=== PATIENT | female | born 1945 | race Caucasian/White ===

== ENCOUNTER → 2018-03-15 16:23 | Outpatient (CLI) | payer OTHER, SELFPAY ==
--- NOTE | 2018-03-15 16:29 | RAD_ITS ---
STUDY: X-RAY - ABDOMEN/PELVIS REASON FOR EXAM: Female, 73 years old. Abdominal bloating, occasional vomiting, constipation. TECHNIQUE: AP supine and upright views of the abdomen and pelvis. COMPARISON: AP supine and upright views of the abdomen and pelvis June 24, 2013; CT abdomen and pelvis June 21, 2013. FINDINGS: There is stable elevation of the right diaphragm, otherwise normal visualized lung bases. There is no significant bowel distention. A few fluid levels are seen on upright exam, which may reflect a mild ileus. There is no demonstrated free abdominal air. Again seen is a scattering of metal surgical clips in the right upper quadrant through the mid to low abdomen, and just over the medial right hip joint The visualized liver, spleen and kidneys are grossly normal in size and morphology. There are calcified phleboliths in the pelvis. There are stable diffuse degenerative changes of the visualized spine. RAD/Abd Inc Decub and/or Erect IMPRESSION: Findings suggesting a mild ileus without distention. No free gas. Numerous metal surgical clips again noted Electronically Signed: Irving Merrill MD at 17:05 EDT , Service support ,
== END ==
PROVIDERS: Family Provider Family Medicine; PCP Family Medicine; Visit Provider Family Medicine
DX: R14.0 Abdominal distension (gaseous) (principal)
CPT/HCPCS: 74019

== ENCOUNTER 2018-06-21 02:26 | Emergency (ER) | payer OTHER, SELFPAY ==
[2018-06-21 02:27] VITALS: BP 140/85; PULSE 83; RESP 16; TEMP 36.7; O2SAT 96; BMI 27.5
--- NOTE | 2018-06-21 03:05 | CT_ITS ---
STUDY: CT BRAIN WITHOUT CONTRAST REASON FOR EXAM: Female, 73 years old. Patient believes that she passed out. Abrasion on the nose. Leg cramps. History of breast cancer, uterine cancer, diabetes, and hypertension. RADIATION DOSAGE (If Supplied By Facility): CTDIvol = ( 44.99 ) mGy, DLP = ( 796.11 ) mGycm TECHNIQUE: Transaxial CT imaging of the brain was performed without administration of intravenous contrast material. Individualized dose optimization techniques were used for this CT. COMPARISON: None. FINDINGS: Normal soft tissue structures. There is hyperostosis frontalis internus. There is mild cerebral atrophy with widening of the extra-axial spaces and ventricular dilatation. Normal white matter tracts of the cerebral hemispheres. Normal basal ganglia and thalami. Normal brainstem. There is mild cerebellar atrophy. There is no intracranial hemorrhage. There are no findings of an acute ischemic infarction. Normal visualized paranasal sinuses. CT/Brain/Head without Contrast IMPRESSION: Mild chronic involutional changes of the brain. No demonstrated acute intracranial process. Electronically Signed: Jaspreet Reyes MD at 3:32 EDT , Service support ,
--- NOTE | 2018-06-21 03:08 | ED.VISSUMM ---
- ER Visit Summary Date of Service: 06/21/18 Chief Complaint: Syncope History of Present Illness: The patient is a 73 F who presents with a syncopal episode that occurred tonight. Patient states she got up to use the bathroom. Patient states that after she got up from the toilet she felt flushed and had some sweats. Patient states she fell to the ground and passed out. Patient states she remembers waking up on the floor. Patient states she has been having some nausea and vomiting yesterday. Patient denies any nausea or vomiting since the syncopal episode tonight. Patient denies any chest pain or palpitations. Patient denies any shortness of breath. Patient complains of pain over her nose where she hit her nose. Patient denies any headaches. Physical Examination: Vital signs are stable. Patient is afebrile. Patient is in no acute distress. Cranial nerves II through XII are intact. There are no focal motor or sensory deficits noted. Pupils are equal, round, reactive to light bilaterally. Extraocular muscles are intact. There is tenderness, edema, and ecchymosis over the bridge of the nose. There is no epistaxis noted. Neck is supple. Trachea is midline. There is no JVD noted. Heart was regular rate and rhythm. Lungs are clear and equal bilaterally. There is good respiratory effort noted. Abdomen is soft. Bowel sounds are normal. There is no tenderness noted. The remaining physical exam is within normal limits. Test Results: EKG showed normal sinus rhythm with a rate of 84. There are no acute ST or T wave changes. 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 CT scan of the brain was obtained. There is no acute intracranial abnormality noted. There is no nasal bone fracture noted. CBC, basic metabolic profile, and urinalysis were obtained. BUN was slightly elevated at 26 and creatinine was slightly elevated at 1.38. Orthostatic vital signs were within normal limits. Emergency Department Course and Treatment: Patient was given IV fluids here. Patient felt better on reevaluation. Patient states her leg cramping has improved. Patient was instructed to drink plenty of fluids. Patient wants to go home. Patient was instructed to follow-up with her primary care physician as scheduled. Patient understood and was agreeable with the plan. All questions were answered. Disposition: Discharged home Impression: Syncope This note was generated with [employer] dictation software. It may contain incorrect words, spelling, and punctuation that were not noted in review of the chart prior to signing ED Disposition - Plan for ED Patient: Disposition: Home or Assisted Living Chief Complaint: Syncope Diagnosis: Syncope and collapse Instructions: ED Fainting Unkn Cause Referrals: Mike Pettit MD [Primary Care Provider] -
[2018-06-21 03:14] LABS: Absolute Lymphocyte Count 0.51 X10^3/ul (0.83-4.51); Basophil# 0.03 X10^3/uL; Basophil% 0.4 % (0-1); Eosinophil# 0.08 X10^3/uL; Eosinophils% 1.1 % (0-5); Hematocrit 37.6 % (37-47); Hemoglobin 12.7 g/dl (12.0-15.0); Lymphocyte # 0.51 X10^3/ul (4.0); Lymphocyte % 6.8 % (19-41); Mean Corp Hgb Conc 33.8 g/gl (32-36); Mean Corpuscular Hgb 30.2 pg (27.0-32.0); Mean Corpuscular Volume 89.5 fL (81-99); Mean Platelet Vol. 10.3 fl (6.2-12.0); Monocyte# 0.89 X10^3/uL; Monocyte% 11.8 % (0-10); Neutrophil # 6.02 X10^3/uL (2.7-7.7); Neutrophil % 79.8 % (47-70); Platelet Count 231 K/mm3 (150-450); RBC Distribution Width CV 13.8 % (11.6-14.6); RBC Distribution Width SD 44.7 fl (35.1-43.9); White Blood Count 7.5 K/mm3 (4.4-11.0)
[2018-06-21 03:15] LABS: Differential Indicated SCAN CRITERIA MET; POSITIVE COUNT NO; POSITIVE DIFFERENTIAL YES; POSITIVE MORPHOLOGY NO
[2018-06-21] MEDS: 0.9% Normal Saline 1,000 ML 1000 ML IV (03:26)
[2018-06-21 03:30] VITALS: BP 118/68; BP 132/67; BP 142/73; PULSE 78; PULSE 84; PULSE 94
[2018-06-21 03:31] VITALS: BP 132/67; PULSE 84; RESP 20; O2SAT 96
[2018-06-21 03:34] LABS: Anion Gap 12 (5-15); BUN 26 mg/dL (7-18); BUN/Creat Ratio 18.8 RATIO (10-20); Calcium,Total 10.1 mg/dL (8.5-10.1); Chloride 107 mmol/L (98-107); Creatinine, Serum 1.38 mg/dL (0.55-1.02); EST Glomerular Filtration Rate 40 mL/min (>60); Est Glom Filt Rate - Afr Amer 48 mL/min (>60); Estimated Creatinine Clearance 28.22 ml/min; Glucose 154 mg/dL (74-106); Potassium 3.7 mmol/L (3.5-5.1); Sodium Level 143 mmol/L (136-145)
[2018-06-21 03:45] LABS: Mucous, Urine 0 SEEN /hpf (<or=2+); Red Blood Cells-Urine 0 SEEN /hpf (0-5)
[2018-06-21 03:46] LABS: Color, Urine Yellow (Yellow); Glucose, Dipstick Normal (Normal); Ketone-Dipstick 5 mg/dl (Negative); Leukocyte Esterase-Dipstick Negative /ul (Negative); Nitrite-Dipstick Negative (Negative); Occult Blood-Urine 150 /ul (Negative); Protein-Dipstick 30 mg/dl (Negative); Specific Gravity, Urine 1.015 (1.002-1.030); Urine Bilirubin Dipstick Negative (Negative); Urine Clarity Clear (Clear); Urine Urobilinogen Normal (Normal)
[2018-06-21 03:48] LABS: Differential Comment SCANNED
[2018-06-21 03:54] LABS: Squamous Epithelial Cells - UA 0-5 SEEN /hpf (5-10); White Blood Cells 0-5 SEEN /hpf (0-5)
[2018-06-21 03:55] LABS: Bacteria RARE /hpf (None Seen)
[2018-06-21 05:05] VITALS: BP 147/72; PULSE 75; RESP 16; O2SAT 99
== END 2018-06-21 05:06 | disposition home or self-care (01) ==
PROVIDERS: Emergency Provider Emergency Medicine; Family Provider Family Medicine; PCP Family Medicine
DX: R55 Syncope and collapse (principal); S00.31XA Abrasion of nose, initial encounter; X58.XXXA Exposure to other specified factors, initial encounter; Y93.9 Activity, unspecified; Y92.9 Unspecified place or not applicable; Z85.3 Personal history of malignant neoplasm of breast; Z85.42 Personal history of malignant neoplasm of other parts of uterus; Z90.710 Acquired absence of both cervix and uterus; Z90.11 Acquired absence of right breast and nipple; Z79.82 Long term (current) use of aspirin; Z79.899 Other long term (current) drug therapy
CPT/HCPCS: 70450; 80048; 81001; 84484; 85025; 93005; 96360; 96361; 99285; J7030; A4216

== ENCOUNTER → 2018-06-25 12:24 | Outpatient (CLI) | payer OTHER, SELFPAY | PROVIDERS: Family Provider Family Medicine; PCP Family Medicine; Visit Provider Nurse Practitioner Family | DX: M25.571 Pain in right ankle and joints of right foot (principal) | CPT/HCPCS: 73610 ==

== ENCOUNTER → 2018-07-04 15:40 | Outpatient (CLI) | payer OTHER, SELFPAY | PROVIDERS: Family Provider Family Medicine; PCP Family Medicine | DX: Z13.820 Encounter for screening for osteoporosis (principal); Z78.0 Asymptomatic menopausal state; Z79.811 Long term (current) use of aromatase inhibitors | CPT/HCPCS: 77080 ==

== ENCOUNTER → 2019-01-08 15:34 | Outpatient (CLI) | payer MEDICARE, OTHER, SELFPAY ==
[2018-07-22 13:20] VITALS: BMI 26.2
[2019-01-08 18:50] LABS: Anion Gap 10 (5-15); BUN 31 mg/dL (7-18); BUN/Creat Ratio 24.6 RATIO (10-20); Calcium,Total 9.1 mg/dL (8.5-10.1); Chloride 104 mmol/L (98-107); Cholesterol 147 mg/dL (200); Creatinine, Serum 1.26 mg/dL (0.55-1.02); EST Glomerular Filtration Rate 44 mL/min (>60); Est Glom Filt Rate - Afr Amer 54 mL/min (>60); Glucose 104 mg/dL (74-106); High Density Lipoprotein 36 mg/dL; Potassium 4.1 mmol/L (3.5-5.1); Sodium Level 139 mmol/L (136-145); Triglycerides 325 mg/dL; Very Low Density Lipoprotein 65 mg/dL (5-40)
== END ==
PROVIDERS: Family Provider Family Medicine; PCP Family Medicine; Referring Provider Family Medicine; Visit Provider Family Medicine
DX: E11.9 Type 2 diabetes mellitus without complications (principal)
CPT/HCPCS: 36415; 80048; 80061

== ENCOUNTER 2019-07-09 20:35 | Inpatient (IN) | payer MEDICARE, OTHER, SELFPAY ==
[2019-01-20 14:32] VITALS: BMI 24.3
[2019-07-09 20:35] VITALS: BP 133/68; PULSE 116; RESP 18; TEMP 36.7; O2SAT 100; BMI 23.6
--- NOTE | 2019-07-09 21:03 | ED.VISSUMM ---
- ER Visit Summary Date of Service: 07/09/19 Chief Complaint: Epigastric abdominal pain, dark tarry stools History of Present Illness: The patient is a 74 F who presents with abdominal pain and dark stools. These all started today. She feels an aching in her upper abdomen. She states that she had a couple of loose bowel movements that were dark. She ate green beans for dinner and when she vomited that back up had some dark specks with it. She denies any history of this in the past. She is not on any blood thinning medications. Her last colonoscopy was 4 years ago. She took no medications for it at home. Physical Examination: Vital signs reviewed. HEENT exam unremarkable. Heart is regular rate and rhythm without murmurs. Lungs are clear to auscultation. Abdomen is soft with epigastric tenderness to palpation. There is no guarding or rebound tenderness. Extremities reveal no edema. Skin exam normal. Neurologic exam normal. Test Results: Hemoglobin 8.6, down from 12 earlier this year. Potassium 2.7, glucose 167. PTT 71.3. AST 11 Emergency Department Course and Treatment: The patient's guaiac was negative which is surprising because she had dark stool on the rectal exam. However, due to her drop in hemoglobin I will still treat this as a GI bleed. The source is likely upper. She had an episode of vomiting here in the emergency department that was dark. Patient was given Protonix bolus. I also replace her potassium IV. Patient will be admitted to the hospital. I did discuss this with Dr. Rodrigues, call for Dr. Muhammad. He will see the patient in consult Treatment Plan: [] Disposition: Admit Impression: GI bleed, hypokalemia This note was generated with [employer] dictation software. It may contain incorrect words, spelling, and punctuation that were not noted in review of the chart prior to signing ED Disposition - Plan for ED Patient: Referrals: Mike Pettit MD [Primary Care Provider] -
[2019-07-09] MEDS: Mag Hydrox/Al Hydrox/Simeth 30 ML UDC PO (21:09)
[2019-07-09 21:18] LABS: Absolute Lymphocyte Count 0.82 X10^3/uL (0.83-4.51); Absolute Neutrophil Count 5.7 X10^3/uL (2.0-7.7); Basophil# 0.02 X10^3/uL; Basophil% 0.3 % (0-1); Eosinophil# 0.07 X10^3/uL; Hematocrit 24.9 % (37-47); Hemoglobin 8.6 g/dL (12.0-15.0); Lymphocyte # 0.82 X10^3/ul (4.0); Lymphocyte % 11.3 % (19-41); Mean Corp Hgb Conc 34.5 g/dL (32-36); Mean Corpuscular Volume 89.9 fL (81-99); Mean Platelet Vol. 10.1 fl (6.2-12.0); Monocyte# 0.58 X10^3/uL; NRBC Flagged by Analyzer 0 % (0-5); Neutrophil # 5.68 X10^3/uL (2.7-7.7); Neutrophil % 78.6 % (47-70); Platelet Count 240 K/mm3 (150-450); RBC Distribution Width CV 12.5 % (11.6-14.6); RBC Distribution Width SD 40.9 fl (35.1-43.9); Red Blood Count 2.77 M/mm3 (4.2-5.4); White Blood Count 7.2 K/mm3 (4.4-11.0)
[2019-07-09 21:36] LABS: ALB/GLOB Ratio 0.7 RATIO (0.9-2.4); AST(SGOT) 11 U/L (15-37); Alanine Aminotransfer ALT/SGPT 20 U/L (13-56); Albumin, Serum 2.9 g/dL (3.2-5.0); Alkaline Phosphatase 44 U/L (45-117); Anion Gap 9 (5-15); BUN 54 mg/dL (7-18); BUN/Creat Ratio 48.2 RATIO (10-20); Calcium,Total 9.4 mg/dL (8.5-10.1); Chloride 102 mmol/L (98-107); Creatinine, Serum 1.12 mg/dL (0.55-1.02); EST Glomerular Filtration Rate 51 mL/min (>60); Est Glom Filt Rate - Afr Amer 61 mL/min (>60); Estimated Creatinine Clearance 34.26 ml/min; Glucose 167 mg/dL (74-106); Lipase 220 U/L (73-393); Potassium 2.7 mmol/L (3.5-5.1); Protein, Total 6.9 g/dL (6.4-8.2); Sodium Level 138 mmol/L (136-145)
[2019-07-09 21:41] LABS: Prothrombin Time (Protime)PT. 12.8 SECONDS (11.7-14.9)
[2019-07-09 21:43] LABS: Partial Thromboplast Time 71.3 Seconds (24.1-36.2)
[2019-07-09 21:44] VITALS: BP 123/62; PULSE 87; RESP 18; O2SAT 97
[2019-07-09] MEDS: Ondansetron 4 MG/2 ML Vial IV (21:46)
--- NOTE | 2019-07-09 21:51 | ED.RN ---
PT HAD A 300CC OF BROWN OR BLACK EMESIS. NOTIFIED
--- NOTE | 2019-07-09 22:35 | HP.PCM_ITS ---
Problem List (1) GI bleed Status: Acute Qualifiers: GI bleed type/associated pathology: unspecified gastrointestinal hemorrhage type Qualified Code(s): K92.2 - Gastrointestinal hemorrhage, unspecified (2) Acute blood loss anemia Status: Acute (3) Hypokalemia Status: Acute (4) Diabetes mellitus Status: Chronic Qualifiers: Diabetes mellitus type: type 2 Diabetes mellitus ocean transportation intermediary insulin use: without fci use Diabetes mellitus complication status: with other specified complication Qualified Code(s): E11.69 - Type 2 diabetes mellitus with other specified complication (5) Hyperlipidemia Status: Chronic Qualifiers: Hyperlipidemia type: unspecified Qualified Code(s): E78.5 - Hyperlipidemia, unspecified (6) Hypertension Status: Chronic Qualifiers: Hypertension type: essential hypertension Qualified Code(s): I10 - Essential (primary) hypertension (7) Malignant neoplasm of endometrium Status: Chronic (8) History of right breast cancer Status: Chronic History of Present Illness Date of Admission: 07/09/19 Chief Complaint: Black stools, diarrhea, epigastric pain, N/V The patient is a 74 y/o F w/ PMHx: Hx Endometrial CA, Hx Breast CA s/p radical R mastectomy, Chronic Anemia, Diabetes mellitus type II, HTN who presents to the [facility] ED on 07/09/19 with history of 2-day history of epigastric discomfort, cramping sensation, rated 3-6 out of 10 with associated dark black tarry appearing stools as well as diarrhea, at least 2 episodes daily with onset nausea as well as emesis on day of ED presentation also dark black in appearance prompting eventual ED presentation. Patient does note she had recent fall and hurt her left shoulder and had been taking high-dose amounts of Aleve. Work-up in the ED included T 98, heart rate 116, BP 133/68, respiratory rate 18, 100% on room air, CBC with WBC 7.2, hemoglobin 8.6 with last level noted to be 12 on 01/20/2019 with prior to this baseline noted to be 10, platelet 240 without market shift, coags with PT 12.8, INR 1.0, PTT 71.3, CMP with BUN 54, creatinine 1.12, glucose 167, lipase 220, AST 11, ALT 20, alk phos 44, stool guaiac negative, type and screen performed. In the ED patient administered 40 mEq IV potassium, Mylanta, viscous lidocaine, multi-ingredient GI drug, Zofran as well as pantoprazole. ED physician to discuss case with Dr. Rodrigues who will evaluate the patient. Past Medical History Past Medical History (Chronic Problems): Chronic Problems (Last Updated 01/20/19 @ 14:31 by Angelica Wyatt) Diabetes mellitus (Chronic) Hyperlipidemia (Chronic) Hypertension (Chronic) Malignant neoplasm of left female breast (Chronic) Malignant neoplasm of endometrium (Chronic) History of right breast cancer (Chronic) Medical History: Medical History (Last Updated 01/20/19 @ 14:31 by Angelica Wyatt) Ankle fracture, right S82.891A Breast cancer C50.919 Diabetes E11.9 Endometrial cancer C54.1 H/O: hysterectomy Z98.890, Z90.710 Hypokalemia E87.6 Nasal fracture S02.2XXA Hypertension I10 Allergies No Known Allergies Allergy (Verified 07/09/19 20:44) Home Medications: Ambulatory Orders Medication Instructions Recorded Aspirin [Ecotrin] 81 mg PO DAILY 08/07/14 Lisinopril [Zestril] 10 mg PO DAILY 08/07/14 metFORMIN HCl [Glucophage] 500 mg PO DAILY 08/07/14 Cholecalciferol (Vitamin D3) 5,000 unit PO BID 07/22/18 [Vitamin D3] Anastrozole [Arimidex] 1 mg PO DAILY 90 Days #90 tablet 09/18/18 Fish Oil 1 tab PO BID 01/20/19 Simvastatin 10 mg PO DAILY 07/09/19 Surgical History: Surgical History (Last Reviewed 01/20/19 @ 14:29 by Angelica Wyatt) History of mastectomy Z98.890, Z90.10 RIGHT RADICAL MASTECTOMY History of tubal ligation Z98.51 Surgical History: - - Bilateral radical mastectomy, hysterectomy, bilateral tubal ligation, tonsillectomy. Psychiatric History: No pertinent psych hx [employer]ACH[employer] History: endometrial cancer Lives: Spouse/ Significant Other Smoking Status: Never smoker Tobacco Use: Non-smoker Alcohol: None Drugs: None - *Family History Maternal Family History: Family History (Last Reviewed 01/20/19 @ 14:29 by Angelica Wyatt) Mother Alzheimer disease Hyperlipidemia Father Heart disease History Items: - - Mother with history of Alzheimer's disease, hyper lipidemia. Paternal Family History: Family History (Last Reviewed 01/20/19 @ 14:29 by Angelica Wyatt) Mother Alzheimer disease Hyperlipidemia Father Heart disease History Items: Heart Disease Review of Systems Constitutional: Reports: Anorexia, Malaise, Weakness, Fatigue. Denies: Chills, Fever, Weight Change HEENT: Denies: Head Aches, Sinus Congestion, Sinus Drainage Cardiovascular: Denies: Chest Pain, Palpitations Respiratory: Denies: Cough, Shortness of breath at rest, Sputum production Gastrointestinal: Reports: Abdominal Pain, Diarrhea, Nausea, Melena, Vomiting Genitourinary: Denies: Dysuria Musculoskeletal: Reports: Shoulder Pain. Denies: Joint Pain, Joint Tenderness Skin: Denies: Rash, Wounds Neurological: Denies: Numbness, Tingling, Focal weakness Psychiatric: Denies: Anxiety, Depression, Homicidal Ideations, Suicidal Ideations Hematologic/ Lymphatic: Denies: Easy Bruising, Easy Bleeding VTE Information - Inpt Only VTE Present on Admission: No VTE Mechan Device Prophylaxis: SCD's VTE Pharm Prophylaxis ordered?: No Reason prophylaxis not ordered:: Medical Contraindication Patient Problems: Active and Suspected Problems (Last Updated 01/20/19 @ 14:31 by Angelica Wyatt) GI bleed (Acute) Acute blood loss anemia (Acute) Hypokalemia (Acute) Subjective: Seated upright 90 bed, fatigued appearance, no acute distress, no market epigastric discomfort at this time. Objective: Physical Examination: General: awake, alert, oriented x 3 and cooperative, seated upright in the ED bed, fatigued appearance, no acute distress. Skin: normal color, turgor, no icterus, cyanosis. HEENT: AT/NC, EOMI, PERRLA, moderately dry MM, no carotid bruits or JVD noted. Lungs: CTA bilaterally, moderate effort, mild decrease BL bases, no rales, ronchi or wheezing. Heart: Improved, regular rate and rhythm; no gallop, rub audible. Abdomen: soft, mild discomfort with epigastric palpation otherwise tender to palpation, ND, hyperactive BS, no HSM. Extremities: no cyanosis, clubbing, or edema. Neurological: patient awake, alert, oriented x 3; cognitive function intact; pupils equally reactive to light and accomodation; cranial nerves II-XII grossly normal, moving all 4 extremities, no focal deficits, strength moderately global decrease secondary to acute presentation. Psychiatric: affect appears fatigued, no acute evidence of depressive or anxiety feelings. - Physical Exam Vital Signs Temp Pulse Resp BP Pulse Ox 98.0 F 87 18 123/62 H 97 07/09/19 20:35 07/09/19 21:44 07/09/19 21:44 07/09/19 21:44 07/09/19 21:44 Oxygen Delivery Method Room Air Weight: 125 lb Body Mass Index (BMI) 23.6 Finger Stick Blood Glucose 132 Intake and Output for Last 24 Hours 07/07/19 07/08/19 07/09/19 23:59 23:59 23:59 Intake Total 25 / 25 Balance 25 / 25 Microbiology Past 72 Hours 07/09/19 21:20 Stool Occult Blood (CALIN) - Final Stool Laboratory Tests Past 24 Hrs 07/09/19 07/09/19 07/09/19 21:05 21:05 21:05 WBC 7.2 RBC 2.77 L Hgb 8.6 L Hct 24.9 L MCV 89.9 MCH 31.0 MCHC 34.5 RDW Std Deviation 40.9 RDW Coeff of Leigh 12.5 Plt Count 240 MPV 10.1 Immature Gran % (Auto) 0.800 Neut % (Auto) 78.6 H Lymph % (Auto) 11.3 L Boyd % (Auto) 8.0 Eos % (Auto) 1.0 Baso % (Auto) 0.3 Absolute Neuts (auto) 5.7 Absolute Lymphs (auto) 0.82 L Nucleated RBC % 0 PT 12.8 INR 1.0 APTT 71.3 H Sodium 138 Potassium 2.7 L* Chloride 102 Carbon Dioxide 27.0 Anion Gap 9 BUN 54 H Creatinine 1.12 H Estim Creat Clear Calc 34.26 Est GFR (MDRD) Af Amer 61 Est GFR (MDRD) Non-Af 51 L BUN/Creatinine Ratio 48.2 H Glucose 167 H Calcium 9.4 Total Bilirubin 0.30 AST 11 L ALT 20 Alkaline Phosphatase 44 L Total Protein 6.9 Albumin 2.9 L Globulin 4.0 Albumin/Globulin Ratio 0.7 L Lipase 220 Blood Type Antibody Screen 07/09/19 21:05 WBC RBC Hgb Hct MCV MCH MCHC RDW Std Deviation RDW Coeff of Leigh Plt Count MPV Immature Gran % (Auto) Neut % (Auto) Lymph % (Auto) Boyd % (Auto) Eos % (Auto) Baso % (Auto) Absolute Neuts (auto) Absolute Lymphs (auto) Nucleated RBC % PT INR APTT Sodium Potassium Chloride Carbon Dioxide Anion Gap BUN Creatinine Estim Creat Clear Calc Est GFR (MDRD) Af Amer Est GFR (MDRD) Non-Af BUN/Creatinine Ratio Glucose Calcium Total Bilirubin AST ALT Alkaline Phosphatase Total Protein Albumin Globulin Albumin/Globulin Ratio Lipase Blood Type A POSITIVE Antibody Screen NEGATIVE Assessment/Plan All Active Problems (Last Updated 01/20/19 @ 14:31 by Angelica Wyatt) Malignant neoplasm of right female breast (Acute) Right foot pain (Acute) GI bleed (Acute) Acute blood loss anemia (Acute) Hypokalemia (Acute) The patient is a 74 y/o F w/ PMHx: Hx Endometrial CA, Hx Breast CA s/p radical R mastectomy, Chronic Anemia, Diabetes mellitus type II, HTN who presents to the [facility] ED on 07/09/19 with history of 2-day history of epigastric discomfort, cramping sensation, rated 3-6 out of 10 with associated dark black tarry appearing stools as well as diarrhea, at least 2 episodes daily with onset nausea as well as emesis on day of ED presentation also dark black. 1. Acute GI Bleed w/ resultant Acute on Chronic blood Loss Anemia: Work-up in the ED included T 98, heart rate 116, BP 133/68, respiratory rate 18, 100% on room air, CBC with WBC 7.2, hemoglobin 8.6 with last level noted to be 12 on 01/20/2019 with prior to this baseline noted to be 10, platelet 240 without market shift, coags with PT 12.8, INR 1.0, PTT 71.3, CMP with BUN 54, creatinine 1.12, glucose 167, lipase 220, AST 11, ALT 20, alk phos 44, stool guaiac negative, type and screen performed. In the ED patient administered 40 mEq IV potassium, Mylanta, viscous lidocaine, multi-ingredient GI drug, Zofran as well as pantoprazole. Will admit to [facility], obtain serial H+H q 6 hours, maintain on IV PPI. General surgery consulted, Dr. Rodrigues. Given recent high dose NSAID usage, suspicious for gastritis/gastric etiology. 2. Hypokalemia: Admission K+ 2.7, supplementation given, repeat level in AM. Mag requested. 3. Chronic Kidney Disease Stage III: From review of labs likely underlying CKD III, admission BUN/Cr 54/1.12, BUN elevated with acute presentation #1, baseline renal function 1.1-1.2, similar CrCl, repeat BMP in AM. 4. Diabetes mellitus type II: Hold oral home regimen, n.p.o. status, and interim every 6 hours Accu checks w/ ISS. 5. Hypertension: Continue home regimen including lisinopril with notable hold parameters given acute presentation, PRN hydralazine. 6. History of breast cancer, endometrial cancer: Status post radical bilateral mastectomy, continue on home Arimidex. 7. Hyperlipidemia: Continue home statin regimen. 8. DVT prophylaxis: SCDs, defer chemoprophylaxis given acute presentation #1. Code Visit Inpatient E&M: 11900 Init Hosp L3
[2019-07-09] MEDS: Potassium Chloride 10mEq/100mL 10 MEQ/100 ML IV.SOLN. 100 MEQ IV BOLUS (22:43)
[2019-07-09 22:44] VITALS: BP 109/60; PULSE 84; RESP 17; O2SAT 100
[2019-07-09 23:37] VITALS: BMI 23.3
[2019-07-09 23:39] VITALS: BP 120/63; PULSE 73; RESP 16; TEMP 37; O2SAT 98
[2019-07-09 23:59] LABS: Magnesium 1.4 mg/dL (1.6-2.6)
[2019-07-10] VITALS (19 sets, daily range): BP systolic 72–143; BP diastolic 34–67; PULSE 60–82; RESP 16–18; TEMP 36.1–37.2; O2SAT 97–100; BMI 23.3
--- NOTE | 2019-07-10 | IMM_PTH ---
PATIENT: MAE ANGUIANO LOC: [facility]3 U#:[id number] AGE/SX: 74/F ROOM: [facility]321 RE07/09/[address]: Dr. Michelle Payton DO : 1945 BED: 1 DIS: 07/12/2019 SPEC #: [id number] RECD: 07/10/19 12:32 STATUS: NEVAEH PAUL #: [id number] DIPTI: 07/10/19 00:[address]: Michelle Payton DEPT: IMMUNOHISTOCHEMISTRY RECD BY: Fred Culp ENTERED: 07/10/19 12:33 SP TYPE: IMMUNO OTHR DR: MD Dr. Stacia Navarrete MD Dr. Paul Nielsen, MD Tissues: Gastric mucous membrane Procedures: H Pylori (initial) PHYSICIAN & INSTITUTION [place] [address] SPECIMEN INFORMATION: Tissue Source: B. Antrum biopsy Clinical Info: GI bleed Specimen Number: [id number] CPT code: 60209 METHODOLOGY: Deparaffinized sections of prefer/formalin-fixed tissue or PAP/DQ stained slides are incubated with monoclonal/polyclonal antibodies/oligonucleotide probes. Localization is made via biotin free immunoperoxidase method. Appropriate controls are performed and reacted as expected. Results on target cell population are indicated in the following table: RESULTS: ANTIBODY / CLONE RESULT H Pylori (polyclonal) negative These tests were developed and their performance characteristics determined by [facility]. They may not have been cleared or approved by the [place]. Food and Drug Administration. The FDA has determined that such clearance or approval is not necessary. INTERPRETATION: B. Gastric antrum, biopsy: Negative for Helicobacter pylori organisms. AM:josé 07/11/19
[2019-07-10 00:02] LABS: Hematocrit 23.9 % (37-47); Hemoglobin 8.2 g/dL (12.0-15.0)
[2019-07-10] MEDS: Potassium Chloride 10mEq/100mL 10 MEQ/100 ML IV.SOLN. 100 MEQ IV BOLUS ×3 (00:15→02:34)
[2019-07-10] MEDS: 0.9% Normal Saline 1,000 ML 100 ML IV ×2 (00:17→19:03)
[2019-07-10 01:10] LABS: Bedside Glucose 132 mg/dL (70-110)
[2019-07-10 06:02] LABS: Hemoglobin 7.4 g/dL (12.0-15.0)
[2019-07-10 06:15] LABS: Anion Gap 7 (5-15); BUN 43 mg/dL (7-18); Calcium,Total 8.5 mg/dL (8.5-10.1); Chloride 107 mmol/L (98-107); EST Glomerular Filtration Rate 58 mL/min (>60); Est Glom Filt Rate - Afr Amer 70 mL/min (>60); Estimated Creatinine Clearance 38.37 ml/min; Glucose 108 mg/dL (74-106); Potassium 3.8 mmol/L (3.5-5.1); Sodium Level 142 mmol/L (136-145)
[2019-07-10 06:36] LABS: Bedside Glucose 100 mg/dL (70-110)
--- NOTE | 2019-07-10 07:49 | CON.PCM_ITS ---
Problem List (1) Upper GI bleed Status: Acute Reason for Consult Date of Consultation: 07/10/19 History of Present Illness: The patient is a 74 year old F who presents with dark vomiting and dark stools. Patient reports that the dark stool started a few days ago. She was having epigastric pain which is now resolved. She has not vomited overnight. She says that she injured her back recently and was taking a large amount of Aleve. She is also on aspirin. She is not on a PPI. She is never had any peptic ulcer disease or GI bleed in the past. Past Medical History Past Medical History (Chronic Problems): Chronic Problems (Last Updated 01/20/19 @ 14:31 by Angelica Wyatt) Diabetes mellitus (Chronic) Hyperlipidemia (Chronic) Hypertension (Chronic) Malignant neoplasm of left female breast (Chronic) Malignant neoplasm of endometrium (Chronic) History of right breast cancer (Chronic) Medical History: Medical History (Last Updated 01/20/19 @ 14:31 by Angelica Wyatt) Ankle fracture, right S82.891A Breast cancer C50.919 Diabetes E11.9 Endometrial cancer C54.1 H/O: hysterectomy Z98.890, Z90.710 Hypokalemia E87.6 Nasal fracture S02.2XXA Hypertension I10 Allergies No Known Allergies Allergy (Verified 07/09/19 20:44) Home Medications: Ambulatory Orders Medication Instructions Recorded Aspirin [Ecotrin] 81 mg PO DAILY 08/07/14 Lisinopril [Zestril] 10 mg PO DAILY 08/07/14 metFORMIN HCl [Glucophage] 500 mg PO 0800 08/07/14 Anastrozole [Arimidex] 1 mg PO DAILY 90 Days #90 tablet 09/18/18 Fish Oil 1 tab PO BID 01/20/19 Simvastatin 10 mg PO QHS 07/09/19 Surgical History: Surgical History (Last Reviewed 01/20/19 @ 14:29 by Angelica Wyatt) History of mastectomy Z98.890, Z90.10 RIGHT RADICAL MASTECTOMY History of tubal ligation Z98.51 Surgical History: - - Bilateral radical mastectomy, hysterectomy, bilateral tubal ligation, tonsillectomy. Psychiatric History: No pertinent psych hx [employer] History: endometrial cancer Lives: Spouse/ Significant Other Smoking Status: Never smoker Tobacco Use: Non-smoker Alcohol: None Drugs: None - *Family History Maternal Family History: Family History (Last Reviewed 01/20/19 @ 14:29 by Angelica Wyatt) Mother Alzheimer disease Hyperlipidemia Father Heart disease History Items: - - Mother with history of Alzheimer's disease, hyper lipidemia. Paternal Family History: Family History (Last Reviewed 01/20/19 @ 14:29 by Angelica Wyatt) Mother Alzheimer disease Hyperlipidemia Father Heart disease History Items: Heart Disease Review of Systems Constitutional: Denies: Anorexia, Fever HEENT: Denies: Difficulty Swallowing Cardiovascular: Reports: Light Headedness. Denies: Chest Pain Respiratory: Denies: Cough, Shortness of Breath Gastrointestinal: Reports: Abdominal Pain, Hematemesis, Nausea, Melena, Vomiting Genitourinary: Denies: Dysuria Skin: Denies: Dryness Neurological: Denies: Balance problems Hematologic/ Lymphatic: Denies: Anemia Patient Problems: Active and Suspected Problems (Last Updated 01/20/19 @ 14:31 by Angelica Wyatt) GI bleed (Acute) Acute blood loss anemia (Acute) Hypokalemia (Acute) Upper GI bleed (Acute) - Physical Exam General: Alert, Oriented x3 Neck: No JVD Lungs: Normal air movement Cardiovascular: Regular rate, Regular Rhythm Abdomen: Soft, Non Tender, Non-Distended Vital Signs Temp Pulse Resp BP Pulse Ox 98.4 F 60 16 98/51 L 98 07/10/19 05:32 07/10/19 05:32 07/10/19 05:32 07/10/19 05:32 07/10/19 05:32 Oxygen Delivery Method Room Air Weight: 123 lb 3.814 oz Body Mass Index (BMI) 23.3 Finger Stick Blood Glucose 132 Intake and Output for Last 24 Hours 07/08/19 07/09/19 07/10/19 23:59 23:59 23:59 Intake Total 125 / 125 300 / 300 Balance 125 / 125 300 / 300 Microbiology Past 72 Hours 07/09/19 21:20 Stool Occult Blood (CALIN) - Final Stool Laboratory Tests Past 24 Hrs 07/09/19 07/09/19 07/09/19 21:05 21:05 21:05 WBC 7.2 RBC 2.77 L Hgb 8.6 L Hct 24.9 L MCV 89.9 MCH 31.0 MCHC 34.5 RDW Std Deviation 40.9 RDW Coeff of Leigh 12.5 Plt Count 240 MPV 10.1 Immature Gran % (Auto) 0.800 Neut % (Auto) 78.6 H Lymph % (Auto) 11.3 L [place] % (Auto) 8.0 Eos % (Auto) 1.0 Baso % (Auto) 0.3 Absolute Neuts (auto) 5.7 Absolute Lymphs (auto) 0.82 L Nucleated RBC % 0 PT 12.8 INR 1.0 APTT 71.3 H Sodium 138 Potassium 2.7 L* Chloride 102 Carbon Dioxide 27.0 Anion Gap 9 BUN 54 H Creatinine 1.12 H Estim Creat Clear Calc 34.26 Est GFR (MDRD) Af Amer 61 Est GFR (MDRD) Non-Af 51 L BUN/Creatinine Ratio 48.2 H Glucose 167 H Calcium 9.4 Magnesium Total Bilirubin 0.30 AST 11 L ALT 20 Alkaline Phosphatase 44 L Total Protein 6.9 Albumin 2.9 L Globulin 4.0 Albumin/Globulin Ratio 0.7 L Lipase 220 Blood Type Antibody Screen 07/09/19 07/09/19 07/09/19 21:05 21:05 23:57 WBC RBC Hgb 8.2 L Hct 23.9 L MCV MCH MCHC RDW Std Deviation RDW Coeff of Leigh Plt Count MPV Immature Gran % (Auto) Neut % (Auto) Lymph % (Auto) [place] % (Auto) Eos % (Auto) Baso % (Auto) Absolute Neuts (auto) Absolute Lymphs (auto) Nucleated RBC % PT INR APTT Sodium Potassium Chloride Carbon Dioxide Anion Gap BUN Creatinine Estim Creat Clear Calc Est GFR (MDRD) Af Amer Est GFR (MDRD) Non-Af BUN/Creatinine Ratio Glucose Calcium Magnesium 1.4 L Total Bilirubin AST ALT Alkaline Phosphatase Total Protein Albumin Globulin Albumin/Globulin Ratio Lipase Blood Type A POSITIVE Antibody Screen NEGATIVE 07/10/19 07/10/19 05:43 05:43 WBC RBC Hgb 7.4 L Hct 23.0 L MCV MCH MCHC RDW Std Deviation RDW Coeff of Leigh Plt Count MPV Immature Gran % (Auto) Neut % (Auto) Lymph % (Auto) [place] % (Auto) Eos % (Auto) Baso % (Auto) Absolute Neuts (auto) Absolute Lymphs (auto) Nucleated RBC % PT INR APTT Sodium 142 Potassium 3.8 Chloride 107 Carbon Dioxide 28.0 Anion Gap 7 BUN 43 H Creatinine 1.00 Estim Creat Clear Calc 38.37 Est GFR (MDRD) Af Amer 70 Est GFR (MDRD) Non-Af 58 L BUN/Creatinine Ratio 43.0 H Glucose 108 H Calcium 8.5 Magnesium Total Bilirubin AST ALT Alkaline Phosphatase Total Protein Albumin Globulin Albumin/Globulin Ratio Lipase Blood Type Antibody Screen POC Glucose 07/10/19 07/10/19 06:28 00:42 POC Glucose 100 132 H Assessment/Plan All Active Problems (Last Updated 01/20/19 @ 14:31 by Angelica Wyatt) Malignant neoplasm of right female breast (Acute) Right foot pain (Acute) GI bleed (Acute) Acute blood loss anemia (Acute) Hypokalemia (Acute) Upper GI bleed (Acute) 74-year-old female with upper GI bleed 1. Patient recently took large doses of Aleve due to back pain. She was having epigastric pain which is now resolved. She describes dark stools for the last few days and dark vomiting yesterday. Her hemoglobin was low at 8.2 yesterday it is now 7.4. I recommend EGD to determine cause. She has been started on a PPI. 2. I explained endoscopy in detail to the patient. I explained the risks including but not limited to stroke or heart attack with anesthesia, perforation of the GI tract, bleeding, infection. I explained that any of these could necessitate further emergency surgery. The patient understands and all questions were answered sufficiently. The patient wishes to proceed with procedure. Issac Rodrigues MD Pager: [facility] [address] [place] [address], [address] [place] [address] Office:
--- NOTE | 2019-07-10 07:54 | EKG12_ITS ---
Test Reason : PRE-PROCEDURE Blood Pressure : / mmHG Vent. Rate : 072 BPM Atrial Rate : 072 BPM P-R Int : 174 ms QRS Dur : 100 ms QT Int : 428 ms P-R-T Axes : 000 -32 067 degrees QTc Int : 468 ms Normal sinus rhythm Left axis deviation Low voltage QRS Poor R- wave Progression Abnormal ECG Confirmed by DOMINGUEZ MARIN, RELL ([id number]), editorial manager SUSIE HERNÁNDEZ ([id number]) on 07/15/2019 12:06:16 PM Referred By: Stacia Judge Confirmed By:RELL MIX MD
--- NOTE | 2019-07-10 08:00 | EGD_PTH ---
PATIENT: MAE ANGUIANO LOC: MS3 U#:[id number] AGE/SX: 74/F ROOM: MS321 RE07/09/[address]: Dr. Michelle Payton DO : 1945 BED: 1 DIS: 07/12/2019 SPEC #: [id number] RECD: 07/10/19 08:51 STATUS: NEVAEH PAUL #: [id number] DIPTI: 07/10/19 08:[address]: Issac Rodrigues DEPT: SURGICAL PATHOLOGY RECD BY: Woodrow Altamirano ENTERED: 07/10/19 11:38 SP TYPE: EGD [facility] DR: MD Dr. Michelle Sinha DO Dr. Paul Nielsen, MD Tissues: A - Duodenum, NOS B - Gastric mucous membrane Procedures: Surgery Specimen Level IV HEADER OPERATION: EGD ([facility] [place] PRE-OP DIAGNOSIS: GI bleed TISSUE SUBMITTED: A. Duodenal ulcer biopsies, B. Antrum biopsy MICROSCOPIC DIAGNOSIS A. Duodenal ulcer, biopsy: Gastric metaplasia. Separate fragment of fibrinopurulent material consistent with ulcer. B. Gastric antrum, biopsy: Mild chronic gastritis. Focal acute gastritis. AM:mj 07/11/19 COMMENT A. Clinical correlation is suggested. B. The results of immunohistochemistry for Helicobacter pylori will be reported separately ([id number]). MICROSCOPIC DESCRIPTION Slides are reviewed. GROSS DESCRIPTION A. Received is one container labeled with the patient name and designated duodenum ulcer biopsy. The specimen consists of multiple irregular fragments of light sadler soft tissue that in aggregate measure 1.5 x 0.5 x 0.1 cm. The specimen is totally submitted in one cassette. B. Received is one container labeled with the patient name and designated antrum biopsy. The specimen consists of two irregular fragments of light sadler soft tissue that in aggregate measure 0.6 x 0.5 x 0.1 cm. The specimen is totally submitted in one cassette. / AM:jm 07/10/19 TC: 2 CPT: 66958 x2
--- NOTE | 2019-07-10 08:34 | OP.ENDO_ITS ---
07/10/2019 Mike Pettit MD [address] [place] [address] Re : Upper GI endoscopy procedure for Shelley Rivera Dear Dr. Pettit This procedure was performed on June. My impressions and recommendations are as follows: Impressions : - Mild Schatzki ring. - Small hiatal hernia. - Non-bleeding gastric ulcers with no stigmata of bleeding. Biopsied. - One non-bleeding duodenal ulcer with pigmented material. Biopsied. Recommendations : - Return patient to [facility] for [facility] care. - Clear liquid diet. - No aspirin, ibuprofen, naproxen, or other non-steroidal anti-inflammatory drugs. My findings are described in the full procedure note, which is enclosed. If I can be of further assistance, please feel free to contact me at Doctor phone number(s): , Work: . Sincerely, Issac Rodrigues MD 07/10/2019 8:33:56 AM This report has been signed electronically.
--- NOTE | 2019-07-10 08:34 | PN_ITS ---
Progress Note I performed an EGD on the patient. She had a Schatzki's ring and a hiatal hernia in the esophagus. In the antrum she had several small shallow ulcers in the prepyloric area. Biopsy was performed for H. pylori. The first portion of the duodenum appeared normal. In the second portion of the duodenum there was a very wide-based ulcer which occupied half of the lumen. There was pigmented material in the ulcer but no visible vessel or adherent clot. There was also a stricture in this area and I was unable to pass the duodenal ulcer with the scope. Biopsies were taken of the rim of the ulcer to rule out malignancy. Advised avoidance of aspirin and NSAIDs. I will add Carafate to her PPI regimen. She may have a clear liquid diet today. Continue clears today in case she rebleeds and needs a repeat scope. If her hemoglobin stabilizes tomorrow she may start a regular diet. Issac Rodrigues MD Pager: [facility] [address] [place] [address], [address] [place] [address] Office:
[2019-07-10 08:55] LABS: Hemoglobin A1c 5.6 % (4.2-6.3)
[2019-07-10] MEDS: Magnesium Sulfate 4gm/100mL 4 GM/100 ML IV.SOLN. IV (10:06)
[2019-07-10] MEDS: Anastrozole 1 MG Tablet PO (10:58)
[2019-07-10] MEDS: Glucerna Shake 120 ML LIQUID PO (10:58)
[2019-07-10] MEDS: Lisinopril 10 MG Tablet PO (10:58)
--- NOTE | 2019-07-10 11:25 | PN_ITS ---
Patient Problems: Active and Suspected Problems (Last Updated 01/20/19 @ 14:31 by Angelica Wyatt) GI bleed (Acute) Acute blood loss anemia (Acute) Hypokalemia (Acute) Upper GI bleed (Acute) Subjective: Patient seen and examined. Underwent upper endoscopy this morning. Denies further nausea, vomiting, abdominal pain or diarrhea. Denies current complaints. - Physical Exam General: Alert, Oriented x3, Cooperative HEENT: Atraumatic, PERRLA, EOMI, Normocephalic Neck: Supple, No JVD, Negative Carotid Bruits Lungs: Clear to auscultation, Normal air movement Cardiovascular: Regular rate, Regular Rhythm, Normal S1, Normal S2, No murmurs Abdomen: Bowel Sounds Present, Soft, Non Tender, Non-Distended Extremities: No clubbing, No cyanosis, No edema, Capillary Refill Less than 3 Seconds Skin: No rashes, No breakdown Musculoskeletal: No Tenderness to Palpation of Joints or Extremities Neurological: Cranial nerves II-XII grossly intact, Neuro grossly intact Psych/Mental Status: Normal Affect, Appropriate Vital Signs Temp Pulse Resp BP Pulse Ox 97.7 F L 64 18 101/58 L 97 07/10/19 09:20 07/10/19 09:20 07/10/19 09:20 07/10/19 09:20 07/10/19 09:20 Oxygen Delivery Method Room Air Weight: 123 lb 3.814 oz Body Mass Index (BMI) 23.3 Finger Stick Blood Glucose 132 Intake and Output for Last 24 Hours 07/08/19 07/09/19 07/10/19 23:59 23:59 23:59 Intake Total 125 / 125 1091.67 / 1091.67 Balance 125 / 125 1091.67 / 1091.67 Microbiology Past 72 Hours 07/09/19 21:20 Stool Occult Blood (CALIN) - Final Stool Laboratory Tests Past 24 Hrs 07/09/19 07/09/19 07/09/19 21:05 21:05 21:05 WBC 7.2 RBC 2.77 L Hgb 8.6 L Hct 24.9 L MCV 89.9 MCH 31.0 MCHC 34.5 RDW Std Deviation 40.9 RDW Coeff of Leigh 12.5 Plt Count 240 MPV 10.1 Immature Gran % (Auto) 0.800 Neut % (Auto) 78.6 H Lymph % (Auto) 11.3 L [place] % (Auto) 8.0 Eos % (Auto) 1.0 Baso % (Auto) 0.3 Absolute Neuts (auto) 5.7 Absolute Lymphs (auto) 0.82 L Nucleated RBC % 0 PT 12.8 INR 1.0 APTT 71.3 H Sodium 138 Potassium 2.7 L* Chloride 102 Carbon Dioxide 27.0 Anion Gap 9 BUN 54 H Creatinine 1.12 H Estim Creat Clear Calc 34.26 Est GFR (MDRD) Af Amer 61 Est GFR (MDRD) Non-Af 51 L BUN/Creatinine Ratio 48.2 H Glucose 167 H Hemoglobin A1c Calcium 9.4 Magnesium Total Bilirubin 0.30 AST 11 L ALT 20 Alkaline Phosphatase 44 L Total Protein 6.9 Albumin 2.9 L Globulin 4.0 Albumin/Globulin Ratio 0.7 L Lipase 220 Blood Type Antibody Screen Crossmatch 07/09/19 07/09/19 07/09/19 21:05 21:05 21:05 WBC RBC Hgb Hct MCV MCH MCHC RDW Std Deviation RDW Coeff of Leigh Plt Count MPV Immature Gran % (Auto) Neut % (Auto) Lymph % (Auto) [place] % (Auto) Eos % (Auto) Baso % (Auto) Absolute Neuts (auto) Absolute Lymphs (auto) Nucleated RBC % PT INR APTT Sodium Potassium Chloride Carbon Dioxide Anion Gap BUN Creatinine Estim Creat Clear Calc Est GFR (MDRD) Af Amer Est GFR (MDRD) Non-Af BUN/Creatinine Ratio Glucose Hemoglobin A1c Calcium Magnesium 1.4 L Total Bilirubin AST ALT Alkaline Phosphatase Total Protein Albumin Globulin Albumin/Globulin Ratio Lipase Blood Type A POSITIVE Antibody Screen NEGATIVE Crossmatch See Detail 07/09/19 07/10/19 07/10/19 23:57 05:30 05:43 WBC RBC Hgb 8.2 L Hct 23.9 L MCV MCH MCHC RDW Std Deviation RDW Coeff of Leigh Plt Count MPV Immature Gran % (Auto) Neut % (Auto) Lymph % (Auto) [place] % (Auto) Eos % (Auto) Baso % (Auto) Absolute Neuts (auto) Absolute Lymphs (auto) Nucleated RBC % PT INR APTT Sodium 142 Potassium 3.8 Chloride 107 Carbon Dioxide 28.0 Anion Gap 7 BUN 43 H Creatinine 1.00 Estim Creat Clear Calc 38.37 Est GFR (MDRD) Af Amer 70 Est GFR (MDRD) Non-Af 58 L BUN/Creatinine Ratio 43.0 H Glucose 108 H Hemoglobin A1c 5.6 Calcium 8.5 Magnesium Total Bilirubin AST ALT Alkaline Phosphatase Total Protein Albumin Globulin Albumin/Globulin Ratio Lipase Blood Type Antibody Screen Crossmatch 07/10/19 07/10/19 05:43 05:43 WBC RBC Hgb 7.4 L Pending Hct 23.0 L Pending MCV MCH MCHC RDW Std Deviation RDW Coeff of Leigh Plt Count MPV Immature Gran % (Auto) Neut % (Auto) Lymph % (Auto) [place] % (Auto) Eos % (Auto) Baso % (Auto) Absolute Neuts (auto) Absolute Lymphs (auto) Nucleated RBC % PT INR APTT Sodium Potassium Chloride Carbon Dioxide Anion Gap BUN Creatinine Estim Creat Clear Calc Est GFR (MDRD) Af Amer Est GFR (MDRD) Non-Af BUN/Creatinine Ratio Glucose Hemoglobin A1c Calcium Magnesium Total Bilirubin AST ALT Alkaline Phosphatase Total Protein Albumin Globulin Albumin/Globulin Ratio Lipase Blood Type Antibody Screen Crossmatch POC Glucose 07/10/19 07/10/19 06:28 00:42 POC Glucose 100 132 H Medical Necessity - Tobacco Use Smoking Status: Never smoker Tobacco Use: Non-smoker Assessment/Plan All Active Problems (Last Updated 01/20/19 @ 14:31 by Angelica Wyatt) Malignant neoplasm of right female breast (Acute) Right foot pain (Acute) GI bleed (Acute) Acute blood loss anemia (Acute) Hypokalemia (Acute) Upper GI bleed (Acute) 1. Acute GI bleed with associated acute blood loss anemia on chronic normocytic anemia- Dr. Rodrigues, general surgery on consult. Patient underwent EGD this morning which showed mild schatzki ring, small hiatal hernia and nonbleeding gastric ulcers with no stigmata of bleeding. One nonbleeding duodenal ulcer. Biopsies taken. No aspirin or NSAIDs. Continue IV PPI, Carafate regimen. Clear liquids today. 2 units PRBC ordered for hemoglobin 7.4. Trend CBC. If hemoglobin remains stable in a.m., anticipate transition to regular diet and possible discharge. 2. Hypokalemia/hypomagnesia, secondary to GI losses-replace per protocol. Resolved. 3. Chronic kidney disease stage III-at baseline, trend BMP. 4. Type 2 diabetes mellitus-hold oral regimen. Accu-Cheks ACHS with sliding scale insulin. 5. Hypertension-continue home lisinopril regimen. Hold for systolic blood pressure less than 90. 6. History of breast cancer, endometrial cancer-status post radical bilateral mastectomy, continue home Arimidex regimen. 7. Hyperlipidemia-continue statin regimen. DVT prophylaxis-SCDs This patient was seen by DORETHA Sigala under the supervision of Dr. Payton.
[2019-07-10 12:20] LABS: Hematocrit 22.4 % (37-47); Hemoglobin 7.3 g/dL (12.0-15.0)
--- NOTE | 2019-07-10 12:45 | CASEMGMT ---
RN MILADY Face to Face with patient for initial transition planning/care coordination assessment. RN CM introduced self and role at [facility]. Patient lying in bed, alert and oriented, at bedside. Patient willing to participate in assessment and is able to answer all questions appropriately. Care providers, pharmacy, and demographics verified. Patient wishes to discharge home, denies need for home health at this time. Patient states she has no further needs or concerns at this time. CM to follow for discharge planning needs that may arise. PCP: [facility] Specialists: Venkat, oncologist Preferred [facility]acy: [facility] Insurance: [employer] Prescription Benefit: yes Living Will/HPOA: yes, Krzysztof Rivera LNOK: Living Arrangements: Patient lives with in single story home. Patient independent at home. Transportation: self/ DME/HHC: Patient states she has walker and knee walker at home. Previous HHC through [facility] Disposition Plan: Patient to discharge home with famliy support and follow-up plans in place. Gabrielle TEJADA, RN, CM
[2019-07-10 12:51] LABS: Bedside Glucose 116 mg/dL (70-110)
[2019-07-10] MEDS: Sucralfate 1 GM Tablet PO ×3 (12:52→21:28)
[2019-07-10] MEDS: Ensure Clear 120 ML Liquid PO ×3 (14:15→21:26)
--- NOTE | 2019-07-10 15:33 | CHAPLAIN ---
Type of Pastoral Visit _x__ Initial Visit ___ Follow-up Visit ___ On-call Visit ___ General Patient Visit ___ Spiritual Assessment ___ Family Conference ___ Bereavement ___ Rapid Response ___ Code Blue ___ Other (describe below) Pastoral Care Referral From _x__ Patient ___ Family ___ Nurse ___ Physician ___ Toy Designer ___ Cafeteria Manager ___ Other (describe below) Sacrament/Intervention _x__ Active listening ___ Anointing ___ Mandaeism ___ Bereavement ___ Communion ___ Patrica exploration ___ ___ Life review ___ Prayer ___ Reconciliation ___ Sacrament of Sick _x__ Supportive presence ___ Wedding ___ Other (describe below) Pastoral Comments
[2019-07-10 17:56] LABS: Bedside Glucose 120 mg/dL (70-110)
[2019-07-10] MEDS: Atorvastatin Calcium 10 MG Tablet 5 MG PO (21:28)
[2019-07-11 00:01] LABS: Bedside Glucose 92 mg/dL (70-110)
[2019-07-11 03:28] VITALS: BP 94/53; PULSE 70; RESP 16; TEMP 36.8; O2SAT 100
[2019-07-11 05:38] LABS: Hematocrit 26.5 % (37-47); Mean Corpuscular Hgb 30.5 pg (27.0-32.0); Mean Corpuscular Volume 89.8 fL (81-99); Mean Platelet Vol. 10.1 fl (6.2-12.0); Platelet Count 184 K/mm3 (150-450); RBC Distribution Width SD 45.7 fl (35.1-43.9); Red Blood Count 2.95 M/mm3 (4.2-5.4); White Blood Count 4.6 K/mm3 (4.4-11.0)
[2019-07-11] MEDS: 0.9% Normal Saline 1,000 ML 100 ML IV (05:57)
[2019-07-11] MEDS: Sucralfate 1 GM Tablet PO ×4 (06:01→21:17)
[2019-07-11 06:13] LABS: Anion Gap 5 (5-15); BUN 22 mg/dL (7-18); BUN/Creat Ratio 26.1 RATIO (10-20); Calcium,Total 7.9 mg/dL (8.5-10.1); Chloride 113 mmol/L (98-107); Creatinine, Serum 0.84 mg/dL (0.55-1.02); EST Glomerular Filtration Rate 70 mL/min (>60); Est Glom Filt Rate - Afr Amer 85 mL/min (>60); Estimated Creatinine Clearance 45.68 ml/min; Glucose 95 mg/dL (74-106); Sodium Level 144 mmol/L (136-145)
[2019-07-11 06:40] LABS: Bedside Glucose 88 mg/dL (70-110)
[2019-07-11 07:06] VITALS: O2SAT 95
--- NOTE | 2019-07-11 07:34 | PCM.PN.SRG ---
Patient Problems: Active and Suspected Problems (Last Updated 01/20/19 @ 14:31 by Angelica Wyatt) GI bleed (Acute) Acute blood loss anemia (Acute) Hypokalemia (Acute) Upper GI bleed (Acute) Subjective: Patient tolerating clears, denies any abdominal pain, received 2 units of packed red blood cells yesterday hemoglobin was 9 from 7.2 - Physical Exam General: Alert, Oriented x3, Cooperative, No apparent distress HEENT: Atraumatic Cardiovascular: Regular rate Abdomen: Soft, Non Tender, Non-Distended Extremities: No clubbing, No cyanosis, No edema Neurological: Cranial nerves II-XII grossly intact Psych/Mental Status: Normal Affect Vital Signs Temp Pulse Resp BP Pulse Ox 98.3 F 70 16 94/53 L 100 07/11/19 03:28 07/11/19 03:28 07/11/19 03:28 07/11/19 03:28 07/11/19 03:28 Oxygen Delivery Method Room Air Weight: 123 lb 3.814 oz Body Mass Index (BMI) 23.3 Finger Stick Blood Glucose 132 Intake and Output for Last 24 Hours 07/09/19 07/10/19 07/11/19 23:59 23:59 23:59 Intake Total 125 / 125 5320.00 / 5820.00 1900 / 1900 Balance 125 / 125 5320.00 / 5820.00 1900 / 1900 Microbiology Past 72 Hours 07/09/19 21:20 Stool Occult Blood (CALIN) - Final Stool Laboratory Tests Past 24 Hrs 07/09/19 07/10/19 07/10/19 21:05 05:30 12:00 WBC RBC Hgb 7.3 L Hct 22.4 L MCV MCH MCHC RDW Std Deviation RDW Coeff of Leigh Plt Count MPV Sodium Potassium Chloride Carbon Dioxide Anion Gap BUN Creatinine Estim Creat Clear Calc Est GFR (MDRD) Af Amer Est GFR (MDRD) Non-Af BUN/Creatinine Ratio Glucose Hemoglobin A1c 5.6 Calcium Crossmatch See Detail 07/11/19 07/11/19 05:20 05:20 WBC 4.6 RBC 2.95 L Hgb 9.0 L Hct 26.5 L MCV 89.8 MCH 30.5 MCHC 34.0 RDW Std Deviation 45.7 H RDW Coeff of Leigh 14.0 Plt Count 184 MPV 10.1 Sodium 144 Potassium 4.0 Chloride 113 H Carbon Dioxide 26.0 Anion Gap 5 BUN 22 H Creatinine 0.84 Estim Creat Clear Calc 45.68 Est GFR (MDRD) Af Amer 85 Est GFR (MDRD) Non-Af 70 BUN/Creatinine Ratio 26.1 H Glucose 95 Hemoglobin A1c Calcium 7.9 L Crossmatch POC Glucose 07/11/19 07/10/19 07/10/19 05:55 23:57 17:47 POC Glucose 88 92 120 H 07/10/19 12:48 POC Glucose 116 H Medical Necessity - Tobacco Use Smoking Status: Never smoker Tobacco Use: Non-smoker Assessment/Plan All Active Problems (Last Updated 01/20/19 @ 14:31 by Angelica Wyatt) Malignant neoplasm of right female breast (Acute) Right foot pain (Acute) GI bleed (Acute) Acute blood loss anemia (Acute) Hypokalemia (Acute) Upper GI bleed (Acute) 74-year-old female with duodenal and gastric ulcers, status post EGD, biopsies pending Advance to a full liquid diet today. Continue IV Protonix twice daily, Carafate 4 times daily Anemia: Continue to monitor hemoglobin, patient's hemoglobin and 9 from 7.3 after 2 units packed red blood cells Danielle Khoury M.D. Pager: [phone] [facility] [address] [place] [address], [address] [place] [address] Office: [phone]
[2019-07-11 09:13] VITALS: BP 132/87; PULSE 68; RESP 18; TEMP 36.2; O2SAT 100
[2019-07-11] MEDS: Ensure Clear 120 ML Liquid PO ×4 (10:25→21:17)
[2019-07-11] MEDS: Anastrozole 1 MG Tablet PO (10:25)
[2019-07-11] MEDS: Lisinopril 10 MG Tablet PO (10:25)
[2019-07-11 12:00] LABS: Bedside Glucose 137 mg/dL (70-110)
--- NOTE | 2019-07-11 12:42 | PCM.PROGNOTE ---
Patient Problems: Active and Suspected Problems (Last Updated 01/20/19 @ 14:31 by Angelica Wyatt) GI bleed (Acute) Acute blood loss anemia (Acute) Hypokalemia (Acute) Upper GI bleed (Acute) Subjective: Patient seen and examined. Reports she feels well. Denies further bowel movement. Denies nausea, vomiting. - Physical Exam General: Alert, Oriented x3, Cooperative HEENT: Atraumatic, PERRLA, EOMI, Normocephalic Neck: Supple, No JVD, Negative Carotid Bruits Lungs: Clear to auscultation, Normal air movement Cardiovascular: Regular rate, Regular Rhythm, Normal S1, Normal S2, No murmurs Abdomen: Bowel Sounds Present, Soft, Non Tender, Non-Distended Extremities: No clubbing, No cyanosis, No edema, Capillary Refill Less than 3 Seconds Skin: No rashes, No breakdown Musculoskeletal: No Tenderness to Palpation of Joints or Extremities Neurological: Cranial nerves II-XII grossly intact, Neuro grossly intact Psych/Mental Status: Normal Affect, Appropriate Vital Signs Temp Pulse Resp BP Pulse Ox 97.2 F L 68 18 132/87 H 100 07/11/19 09:13 07/11/19 09:13 07/11/19 09:13 07/11/19 09:13 07/11/19 09:13 Oxygen Delivery Method Room Air Weight: 123 lb 3.814 oz Body Mass Index (BMI) 23.3 Finger Stick Blood Glucose 132 Intake and Output for Last 24 Hours 07/09/19 07/10/19 07/11/19 23:59 23:59 23:59 Intake Total 125 / 125 5320.00 / 5820.00 1900 / 1900 Balance 125 / 125 5320.00 / 5820.00 1900 / 1900 Microbiology Past 72 Hours 07/09/19 21:20 Stool Occult Blood (CALIN) - Final Stool Laboratory Tests Past 24 Hrs 07/09/19 07/11/19 07/11/19 21:05 05:20 05:20 WBC 4.6 RBC 2.95 L Hgb 9.0 L Hct 26.5 L MCV 89.8 MCH 30.5 MCHC 34.0 RDW Std Deviation 45.7 H RDW Coeff of Leigh 14.0 Plt Count 184 MPV 10.1 Sodium 144 Potassium 4.0 Chloride 113 H Carbon Dioxide 26.0 Anion Gap 5 BUN 22 H Creatinine 0.84 Estim Creat Clear Calc 45.68 Est GFR (MDRD) Af Amer 85 Est GFR (MDRD) Non-Af 70 BUN/Creatinine Ratio 26.1 H Glucose 95 Calcium 7.9 L Crossmatch See Detail POC Glucose 07/11/19 07/11/19 07/10/19 11:54 05:55 23:57 POC Glucose 137 H 88 92 07/10/19 07/10/19 17:47 12:48 POC Glucose 120 H 116 H Medical Necessity - Tobacco Use Smoking Status: Never smoker Tobacco Use: Non-smoker Assessment/Plan All Active Problems (Last Updated 01/20/19 @ 14:31 by Angelica Wyatt) Malignant neoplasm of right female breast (Acute) Right foot pain (Acute) GI bleed (Acute) Acute blood loss anemia (Acute) Hypokalemia (Acute) Upper GI bleed (Acute) 1. Acute GI bleed with associated acute blood loss anemia on chronic normocytic anemia- Dr. Rodrigues/, general surgery on consult. Patient underwent EGD 07/10/19 which showed mild schatzki ring, small hiatal hernia and nonbleeding gastric ulcers with no stigmata of bleeding. One nonbleeding duodenal ulcer. Biopsies taken. No aspirin or NSAIDs. Continue IV PPI, Carafate regimen. Full liquids today. Status post 2 units PRBC. Hemoglobin stable. Trend CBC. Anticipate discharge tomorrow if hemoglobin continues to remain stable. 2. Hypokalemia/hypomagnesia, secondary to GI losses-replace per protocol. Resolved. 3. Chronic kidney disease stage III-at baseline, trend BMP. 4. Type 2 diabetes mellitus-hold oral regimen. Accu-Cheks ACHS with sliding scale insulin. 5. Hypertension-continue home lisinopril regimen. Hold for systolic blood pressure less than 90. 6. History of breast cancer, endometrial cancer-status post radical bilateral mastectomy, continue home Arimidex regimen. 7. Hyperlipidemia-continue statin regimen. DVT prophylaxis-SCDs This patient was seen by Dottie Gonzalez NP-C under the supervision of Dr. Payton.
[2019-07-11 15:32] LABS: Hematocrit 26.1 % (37-47); Hemoglobin 8.6 g/dL (12.0-15.0)
[2019-07-11 16:12] VITALS: BP 124/62; PULSE 70; RESP 18; TEMP 36.3; O2SAT 100
[2019-07-11 17:40] LABS: Bedside Glucose 103 mg/dL (70-110)
[2019-07-11] MEDS: Atorvastatin Calcium 10 MG Tablet 5 MG PO (21:17)
[2019-07-11 21:21] VITALS: BP 99/75; PULSE 66; RESP 18; TEMP 36.6; O2SAT 99
[2019-07-12] LABS: Bedside Glucose 97 mg/dL (70-110)
[2019-07-12 03:35] VITALS: BP 121/58; PULSE 67; RESP 16; TEMP 37.2; O2SAT 96
[2019-07-12] MEDS: Sucralfate 1 GM Tablet PO (05:53)
[2019-07-12 06:00] LABS: Hematocrit 26.9 % (37-47); Mean Corp Hgb Conc 33.5 g/dL (32-36); Mean Corpuscular Hgb 30.4 pg (27.0-32.0); Mean Corpuscular Volume 90.9 fL (81-99); Mean Platelet Vol. 9.5 fl (6.2-12.0); Platelet Count 199 K/mm3 (150-450); RBC Distribution Width SD 46.4 fl (35.1-43.9); Red Blood Count 2.96 M/mm3 (4.2-5.4); White Blood Count 4.1 K/mm3 (4.4-11.0)
[2019-07-12 06:01] LABS: Bedside Glucose 86 mg/dL (70-110)
[2019-07-12 07:16] VITALS: O2SAT 97
--- NOTE | 2019-07-12 07:41 | PCM.DC ---
- Discharge Diagnoses Current Active Problems: Current Active and Chronic Problems (Last Updated 01/20/19 @ 14:31 by Angelica Wyatt) GI bleed (Acute) Acute blood loss anemia (Acute) Hypokalemia (Acute) Upper GI bleed (Acute) You will use the following diet at home:: Other - full liquid for a few days and then advance to soft diet as tolerated. Your food should be the consistency of: Soft (bite-sized & easy to chew/swallow) Your liquids should be the consistency of: Regular/Thin Discharge Activity: - - activity as tolerated Call your doctor if you observe: Fever of 101 or Higher, Shortness of breath, Dizziness, Fainting spells, Swelling in the ankles, Chest pain, Calf discomfort, - - vomiting blood, black tarry diarrhea, abdominal pain Instructions: Peptic Ulcer Additional Instructions: 1. NO aspirin for the next 14 days. NO NSAID's (Motrin, advil, Naproxen, Nuprin, etc......if you are unsure about an over the counter medication ask the pharmacist.). 2. Stay away from caffeine for the next 2 weeks. Stick to a full liquid diet for a few days and then advance as tolerated to soft. 3. I have given you a lab slip to have a blood count checked next Sunday and the results will be sent to Dr. Pettit. Call the office on for the results. 4. You will take the carafate for 1 month and then discontinue. You will stay on the Protonix until Dr. Rodrigues tells you that you can stop. 5. the biopsies were negative for H. Pylori (a bacteria that causes ulcers). The biopsies of the stomach showed no malignant cells.....only evidence of chronic inflammation. Pending Tests on Discharge: none Allergies/Adverse Reactions: Allergies No Known Allergies Allergy (Verified 07/09/19 20:44) Medications to take at Discharge Aspirin [Ecotrin] 81 mg PO DAILY 08/07/14 Lisinopril [Zestril] 10 mg PO DAILY 08/07/14 metFORMIN HCl [Glucophage] 500 mg PO 0800 08/07/14 Anastrozole [Arimidex] 1 mg PO DAILY 90 Days #90 tablet 09/18/18 Fish Oil 1 tab PO BID 01/20/19 Simvastatin 10 mg PO QHS 07/09/19 Acetaminophen [Tylenol Tablet] 650 mg PO Q6H PRN PRN tablet 07/12/19 Pantoprazole Sodium [Protonix] 40 mg PO BID #60 tab 07/12/19 Sucralfate [Carafate] 1 gm PO 1HR_ACHS #120 tab 07/12/19 The following prescriptions were given: Sucralfate [Carafate] 1 gm PO 1HR_ACHS #120 tab Transmission Status: [id number] Pantoprazole Sodium [Protonix] 40 mg PO BID #60 tab Transmission Status: [id number] Orders to be completed after discharge: HH, Hemoglobin & Hematocrit Time Frame: 07/16/19, Facility: [facility], Location: Laboratory Primary Care Physician: Mike Pettit MD [Primary Care Provider] - Please follow up with your Primary Care Physician in: next week Test Results: Test results from this visit will be discussed in further detail at your follow-up appointment, if applicable. Please Follow Up With: Issac Rodrigues MD When: 1-2 weeks Proposed Discharge Date: 07/12/19
--- NOTE | 2019-07-12 07:58 | DS.PCM_ITS ---
Discharge Date and Diagnosis - Problem List Patient Problems: Active and Suspected Problems (Last Updated 01/20/19 @ 14:31 by Angelica Wyatt) Acute blood loss anemia (Acute) Hypokalemia (Acute) Upper GI bleed (Acute) Date of Admission: 07/09/19 Date of Discharge: 07/12/19 - Primary Discharge Diagnosis Active and Suspected Problems (Last Updated 01/20/19 @ 14:31 by Angelica Wyatt) Upper GI bleed (Acute) Small gastric ulcers and a large duodenal ulcer Acute blood loss anemia (Acute) requiring transfusion Hypokalemia (Acute) - Secondary Discharge Diagnosis Chronic Problems (Last Updated 01/20/19 @ 14:31 by Angelica Wyatt) Diabetes mellitus II (Chronic) Hyperlipidemia (Chronic) Hypertension (Chronic) Malignant neoplasm of left female breast (Chronic) Malignant neoplasm of endometrium (Chronic) History of right breast cancer (Chronic) Hospital Course and Treatment Imaging Results: Laboratory Results - last 24 hr 07/11/19 07/11/19 07/11/19 11:54 15:15 17:33 WBC RBC Hgb 8.6 L Hct 26.1 L MCV MCH MCHC RDW Std Deviation RDW Coeff of Leigh Plt Count MPV POC Glucose 137 H 103 07/11/19 07/12/19 07/12/19 23:54 05:49 05:50 WBC 4.1 L RBC 2.96 L Hgb 9.0 L Hct 26.9 L MCV 90.9 MCH 30.4 MCHC 33.5 RDW Std Deviation 46.4 H RDW Coeff of Leigh 14.0 Plt Count 199 MPV 9.5 POC Glucose 97 86 Microbiology 07/09/19 21:20 Stool Stool Occult Blood (CALIN) - Final Negative at admission Dr. Issac sanders and Dr.Tamera Khoury - [place] [facility] Operations: None Procedures: EGD - A. Duodenal ulcer, biopsy: Gastric metaplasia. Separate fragment of fibrinopurulent material consistent with ulcer. B. Gastric antrum, biopsy: Mild chronic gastritis. Focal acute gastritis. Impressions : - Mild Schatzki ring. - Small hiatal hernia. - Non-bleeding gastric ulcers with no stigmata of bleeding. Biopsied. - One non-bleeding duodenal ulcer with pigmented material. Biopsied. Summary of Care Provided: The patient is a 74 year old F [] Patient Problems: Active and Suspected Problems (Last Updated 01/20/19 @ 14:31 by Angelica Wyatt) Acute blood loss anemia (Acute) Hypokalemia (Acute) Upper GI bleed (Acute) - Physical Exam Vital Signs Temp Pulse Resp BP Pulse Ox 98.9 F 67 16 121/58 H 97 07/12/19 03:35 07/12/19 03:35 07/12/19 03:35 07/12/19 03:35 07/12/19 07:16 Oxygen Delivery Method Room Air Weight: 123 lb 3.814 oz Body Mass Index (BMI) 23.3 Finger Stick Blood Glucose 132 Intake and Output for Last 24 Hours 07/10/19 07/11/19 07/12/19 23:59 23:59 23:59 Intake Total 5320.00 / 5820.00 5350 / 5750 450 / 450 Balance 5320.00 / 5820.00 5350 / 5750 450 / 450 Microbiology Past 72 Hours 07/09/19 21:20 Stool Occult Blood (CALIN) - Final Stool Laboratory Tests Past 24 Hrs 07/11/19 07/12/19 15:15 05:50 WBC 4.1 L RBC 2.96 L Hgb 8.6 L 9.0 L Hct 26.1 L 26.9 L MCV 90.9 MCH 30.4 MCHC 33.5 RDW Std Deviation 46.4 H RDW Coeff of Leigh 14.0 Plt Count 199 MPV 9.5 POC Glucose 07/12/19 07/11/19 07/11/19 05:49 23:54 17:33 POC Glucose 86 97 103 07/11/19 11:54 POC Glucose 137 H Discharge Activity: - - activity as tolerated Call your doctor if you observe: Fever of 101 or Higher, Shortness of breath, Dizziness, Fainting spells, Swelling in the ankles, Chest pain, Calf discomfort, - - vomiting blood, black tarry diarrhea, abdominal pain Home Medications: Medications to take at Discharge Aspirin [Ecotrin] 81 mg PO DAILY 08/07/14 Lisinopril [Zestril] 10 mg PO DAILY 08/07/14 metFORMIN HCl [Glucophage] 500 mg PO 0800 08/07/14 Anastrozole [Arimidex] 1 mg PO DAILY 90 Days #90 tablet 09/18/18 Fish Oil 1 tab PO BID 01/20/19 Simvastatin 10 mg PO QHS 07/09/19 Acetaminophen [Tylenol Tablet] 650 mg PO Q6H PRN PRN tablet 07/12/19 Pantoprazole Sodium [Protonix] 40 mg PO BID #60 tab 07/12/19 Sucralfate [Carafate] 1 gm PO 1HR_ACHS #120 tab 07/12/19 Following Prescrptions Were Given to Patient: Sucralfate [Carafate] 1 gm PO 1HR_ACHS #120 tab Transmission Status: [id number] Pantoprazole Sodium [Protonix] 40 mg PO BID #60 tab Transmission Status: [id number] Other Amb Orders: HH, Hemoglobin & Hematocrit Time Frame: 07/16/19, Facility: [facility], Location: Laboratory Primary Care Physician: Mike Pettit MD [Primary Care Provider] - Please follow up with your Primary Care Physician in: next week Please Follow Up With: Issac Rodrigues MD When: 1-2 weeks Patient Instructions: Peptic Ulcer Medical Necessity - Tobacco Use Smoking Status: Never smoker Tobacco Use: Non-smoker
[2019-07-12 08:26] VITALS: BP 142/72; PULSE 64; RESP 14; TEMP 36.6; O2SAT 97
--- NOTE | 2019-07-12 08:38 | PN.SURG_ITS ---
Patient Problems: Active and Suspected Problems (Last Updated 01/20/19 @ 14:31 by Angelica Wyatt) Acute blood loss anemia (Acute) Hypokalemia (Acute) Upper GI bleed (Acute) Subjective: Patient tolerated full liquids denies any abdominal pain, nausea or vomiting, patient still having some residual black stools, hemoglobin stable at 9 - Physical Exam General: Alert, Oriented x3, Cooperative, No apparent distress HEENT: Atraumatic Lungs: Normal air movement Abdomen: Soft, Non Tender, Non-Distended Vital Signs Temp Pulse Resp BP Pulse Ox 97.8 F 64 14 142/72 H 97 07/12/19 08:26 07/12/19 08:26 07/12/19 08:26 07/12/19 08:26 07/12/19 08:26 Oxygen Delivery Method Room Air Weight: 123 lb 3.814 oz Body Mass Index (BMI) 23.3 Finger Stick Blood Glucose 132 Intake and Output for Last 24 Hours 07/10/19 07/11/19 07/12/19 23:59 23:59 23:59 Intake Total 5320.00 / 5820.00 5350 / 5750 450 / 450 Balance 5320.00 / 5820.00 5350 / 5750 450 / 450 Microbiology Past 72 Hours 07/09/19 21:20 Stool Occult Blood (CALIN) - Final Stool Laboratory Tests Past 24 Hrs 07/11/19 07/12/19 15:15 05:50 WBC 4.1 L RBC 2.96 L Hgb 8.6 L 9.0 L Hct 26.1 L 26.9 L MCV 90.9 MCH 30.4 MCHC 33.5 RDW Std Deviation 46.4 H RDW Coeff of Leigh 14.0 Plt Count 199 MPV 9.5 POC Glucose 07/12/19 07/11/19 07/11/19 05:49 23:54 17:33 POC Glucose 86 97 103 07/11/19 11:54 POC Glucose 137 H Medical Necessity - Tobacco Use Smoking Status: Never smoker Tobacco Use: Non-smoker Assessment/Plan All Active Problems (Last Updated 01/20/19 @ 14:31 by Angelica Wyatt) Malignant neoplasm of right female breast (Acute) Acute blood loss anemia (Acute) Hypokalemia (Acute) Upper GI bleed (Acute) Right foot pain (Resolved) 74-year-old female with duodenal and gastric ulcers, status post EGD, biopsies pending Stay on a full liquid diet for 3 days okay to advance to soft Continue Protonix twice daily, Carafate 4 times daily Anemia: Globin stable at 9 Okay for discharge follow-up with Dr. Rodrigues in 1 to 2 weeks. Danielle Khoury M.D. Pager: [phone] [facility] [address] [place] [address], [facility], [address] [place] [address] Office: [phone]
[2019-07-12] MEDS: Anastrozole 1 MG Tablet PO (08:41)
[2019-07-12] MEDS: Ensure Clear 120 ML Liquid PO (08:41)
[2019-07-12] MEDS: Lisinopril 10 MG Tablet PO (08:42)
--- NOTE | 2019-07-12 12:06 | DS.PCM_ITS ---
Discharge Date and Diagnosis Date of Admission: 07/09/19 Date of Discharge: 07/12/19 - Primary Discharge Diagnosis 1. Acute GI bleed secondary to duodenal and gastric ulcers with associated acute blood loss anemia on chronic normocytic anemia 2. Hypokalemia/hypomagnesia, secondary to GI losses 3. Chronic kidney disease stage III 4. Type 2 diabetes mellitus 5. Hypertension 6. History of breast cancer, endometrial cancer 7. Hyperlipidemia - Secondary Discharge Diagnosis Chronic Problems (Last Updated 01/20/19 @ 14:31 by Angelica Wyatt) Diabetes mellitus (Chronic) Hyperlipidemia (Chronic) Hypertension (Chronic) Malignant neoplasm of left female breast (Chronic) Malignant neoplasm of endometrium (Chronic) History of right breast cancer (Chronic) Hospital Course and Treatment Dr. Mancia- General Surgery Operations: None Procedures: EGD Summary of Care Provided: The patient is a 74 year old F admitted 07/09/2019 due to black stools, diarrhea and epigastric pain. 1. Acute GI bleed with associated acute blood loss anemia on chronic normocytic anemia- Dr. Rodrigues/, general surgery on consult. Patient underwent EGD 07/10/19 which showed mild schatzki ring, small hiatal hernia and nonbleeding gastric ulcers with no stigmata of bleeding. One nonbleeding duodenal ulcer. Biopsies taken, did not show any malignant cells, chronic inflammation, negative for H. pylori. No aspirin or NSAIDs. Continue twice daily PPI, Carafate regimen. Full liquids x3 days then advance to soft diet as tolerated. Patient received 2 units PRBC during admission. Hemoglobin stable. Repeat H&H in 3 to 5 days. Follow-up with Dr. Rodrigues in 1-2 Weeks. Follow- up with primary care physician in 1 week. 2. Hypokalemia/hypomagnesia, secondary to GI losses-replace per protocol. Resolved. 3. Chronic kidney disease stage III-at baseline. 4. Type 2 diabetes mellitus-continue home oral regimen. 5. Hypertension-continue home lisinopril regimen. 6. History of breast cancer, endometrial cancer-status post radical bilateral mastectomy, continue home Arimidex regimen. 7. Hyperlipidemia-continue statin regimen. General: Alert, Oriented x3, Cooperative HEENT: Atraumatic, PERRLA, EOMI, Normocephalic Neck: Supple, No JVD, Negative Carotid Bruits Lungs: Clear to auscultation, Normal air movement Cardiovascular: Regular rate, Regular Rhythm, Normal S1, Normal S2, No murmurs Abdomen: Bowel Sounds Present, Soft, Non Tender, Non-Distended Extremities: No clubbing, No cyanosis, No edema, Capillary Refill Less than 3 Seconds Skin: No rashes, No breakdown Musculoskeletal: No Tenderness to Palpation of Joints or Extremities Neurological: Cranial nerves II-XII grossly intact, Neuro grossly intact Psych/Mental Status: Normal Affect, Appropriate Patient seen and examined prior to discharge. Physical assessment as noted above. Patient is stable for discharge with follow up recommendations as noted above. This patient was seen by DORETHA Sigala under the supervision of Dr. Payton. - Physical Exam Vital Signs Temp Pulse Resp BP Pulse Ox 97.8 F 64 14 142/72 H 97 07/12/19 08:26 07/12/19 08:26 07/12/19 08:26 07/12/19 08:26 07/12/19 08:26 Oxygen Delivery Method Room Air Weight: 123 lb 3.814 oz Body Mass Index (BMI) 23.3 Finger Stick Blood Glucose 132 Intake and Output for Last 24 Hours 07/10/19 07/11/19 07/12/19 23:59 23:59 23:59 Intake Total 5320.00 / 5820.00 5350 / 5750 450 / 450 Balance 5320.00 / 5820.00 5350 / 5750 450 / 450 Microbiology Past 72 Hours 07/09/19 21:20 Stool Occult Blood (CALIN) - Final Stool Laboratory Tests Past 24 Hrs 07/11/19 07/12/19 15:15 05:50 WBC 4.1 L RBC 2.96 L Hgb 8.6 L 9.0 L Hct 26.1 L 26.9 L MCV 90.9 MCH 30.4 MCHC 33.5 RDW Std Deviation 46.4 H RDW Coeff of Leigh 14.0 Plt Count 199 MPV 9.5 POC Glucose 07/12/19 07/11/19 07/11/19 05:49 23:54 17:33 POC Glucose 86 97 103 Discharge Diet: - - Full liquid x2 days then advance to soft diet as tolerated. Discharge Activity: Return to Normal Activity, - - activity as tolerated Call your doctor if you observe: Fever of 101 or Higher, Shortness of breath, Dizziness, Fainting spells, Swelling in the ankles, Chest pain, Calf discomfort, - - vomiting blood, black tarry diarrhea, abdominal pain Home Medications: Medications to take at Discharge Aspirin [Ecotrin] 81 mg PO DAILY 08/07/14 Lisinopril [Zestril] 10 mg PO DAILY 08/07/14 metFORMIN HCl [Glucophage] 500 mg PO 0800 08/07/14 Anastrozole [Arimidex] 1 mg PO DAILY 90 Days #90 tablet 09/18/18 Fish Oil 1 tab PO BID 01/20/19 Simvastatin 10 mg PO QHS 07/09/19 Acetaminophen [Tylenol Tablet] 650 mg PO Q6H PRN PRN tab 07/12/19 Pantoprazole Sodium [Protonix] 40 mg PO BID #60 tab 07/12/19 Sucralfate [Carafate] 1 gm PO 1HR_ACHS #120 tab 07/12/19 Following Prescrptions Were Given to Patient: Sucralfate [Carafate] 1 gm PO 1HR_ACHS #120 tab Transmission Status: [id number] Pantoprazole Sodium [Protonix] 40 mg PO BID #60 tab Transmission Status: [id number] Other Amb Orders: HH, Hemoglobin & Hematocrit Time Frame: 07/16/19, Facility: [facility], Location: Laboratory Primary Care Physician: Mike Pettit MD [Primary Care Provider] - Please follow up with your Primary Care Physician in: next week Please Follow Up With: Issac Rodrigues MD When: 1-2 weeks Patient Instructions: Peptic Ulcer Disposition: Home Minutes spent on discharge:: 35 Patient Condition:: Stable Medical Necessity - Tobacco Use Smoking Status: Never smoker Tobacco Use: Non-smoker Meaningful Use Info Meaningful Use Diagnoses (Choose all that apply): None applicable
--- NOTE | 2019-07-15 10:44 | CASEMGMT ---
HELEN CM Discharge Follow-up Phone Call: BILL: Bertin Strata: 3 Call Date: 07/15/19 Discharge Date: 07/12/19 Time of Call: 1045 Duration: 0 ? Admitting Diagnosis: GI bleed, gastric and duodenal ulcers, ABLA Discharge follow-up call attempted. Voicemail received and message left requesting a return call. Lindsay Pacheco RN
--- NOTE | 2019-07-15 13:41 | CASEMGMT ---
HELEN CM Discharge Follow-up Phone Call: BILL: Bertin Strata: 3 Call Date: 07/15/19 Discharge Date: 07/12/19 Time of Call: 1325 Duration: 14 minutes Pt returned message. States she has been feeling fine since discharge stating she feels almost back to normal. Pt states her stools are dark but no bright red blood. Denies any n/v, fatigue, or lightheadedness. States she continues on a soft food diet including oatmeal, soups, jello, pudding, and is not drinking coffee, tea, or pop. States she has not made her follow-up appointments but she did have her labs drawn this morning as ordered. Phone number to Dr. Rodrigues's office was provided and pt was instructed and encouraged to follow-up with her PCP Dr. Purcell also. Pt states she had just seen him the day of per presentation to the ED and was not sure she needed to see him again. Relayed the instruction to follow up with him this week and with the results of her labs drawn today. Pt states she will call Dr. Rodrigues's office now and will call Dr. Purcell's office later this afternoon after labs may have resulted. Pt states she obtained her medications and has been taking them as prescribed including the carafate 1 hour before meals. Pt denied any additional questions or concerns. Lindsay Pacheco RN
== END 2019-07-12 10:33 | disposition home or self-care (01) | DRG 378 ==
LOC: ED 21:18 → MS3 23:20
PROVIDERS: Anesthesiology; Nurse Practitioner Family; Surgery; Admitting Provider Family Medicine; Emergency Provider Emergency Medicine; Family Provider Family Medicine; PCP Family Medicine; Referring Provider Family Medicine; Visit Provider Internal Medicine
PROC: 0DJ08ZZ Inspection of Upper Intestinal Tract, Via Natural or Artificial Opening Endoscopic (ICD-10-PCS; CPT 43235; principal; 2019-07-10 07:55)
DX: K26.4 Chronic or unspecified duodenal ulcer with hemorrhage (principal); D62 Acute posthemorrhagic anemia; K25.4 Chronic or unspecified gastric ulcer with hemorrhage; E78.5 Hyperlipidemia, unspecified; I12.9 Hypertensive chronic kidney disease with stage 1 through stage 4 chronic kidney disease, or unspecified chronic kidney disease; E87.6 Hypokalemia; K44.9 Diaphragmatic hernia without obstruction or gangrene; K22.2 Esophageal obstruction; E11.22 Type 2 diabetes mellitus with diabetic chronic kidney disease; N18.3 Chronic kidney disease, stage 3 (moderate); E83.42 Hypomagnesemia; Z79.84 Long term (current) use of oral hypoglycemic drugs; Z85.42 Personal history of malignant neoplasm of other parts of uterus; Z90.710 Acquired absence of both cervix and uterus; Z85.3 Personal history of malignant neoplasm of breast; Z79.811 Long term (current) use of aromatase inhibitors; Z90.13 Acquired absence of bilateral breasts and nipples
CPT/HCPCS: 36415; 36591; 80048; 80053; 82274; 82962; 83036; 83690; 83735; 85014; 85018; 85025; 85027; 85610; 85730; 86850; 86900; 86901; 86920; 88305; 88342; 93005; 97802; 99285; J7030; J7040; P9040; A4216; J2405; J3490

== ENCOUNTER → 2019-07-15 | Outpatient (CLI) | payer MEDICARE, OTHER, SELFPAY ==
[2019-07-09 23:37] VITALS: BMI 23.3
[2019-07-15 12:48] LABS: Cholesterol 139 mg/dL (200); High Density Lipoprotein 36 mg/dL; Triglycerides 163 mg/dL; Very Low Density Lipoprotein 33 mg/dL (5-40)
[2019-07-15 15:18] LABS: Hematocrit 31.3 % (37-47); Hemoglobin 10.1 g/dL (12.0-15.0)
== END | disposition home or self-care (01) ==
LOC: MFPLAB 10:57
PROVIDERS: Internal Medicine; Family Provider Family Medicine; PCP Family Medicine; Referring Provider Family Medicine; Visit Provider Family Medicine
DX: E78.5 Hyperlipidemia, unspecified (principal); D62 Acute posthemorrhagic anemia
CPT/HCPCS: 36415; 80061; 85014; 85018

== ENCOUNTER → 2019-08-15 17:27 | Outpatient (CLI) | payer MEDICARE, OTHER, SELFPAY | PROVIDERS: Family Provider Family Medicine; PCP Family Medicine; Referring Provider Family Medicine; Visit Provider Family Medicine | DX: R19.7 Diarrhea, unspecified (principal) | CPT/HCPCS: 87493 ==

== ENCOUNTER → 2021-07-06 10:14 | Outpatient (CLI) | payer MEDICARE, OTHER, SELFPAY ==
[2021-07-06 12:37] LABS: Anion Gap 5 (5-15); BUN 35 mg/dL (7-18); BUN/Creat Ratio 22.6 RATIO (10-20); Calcium,Total 9.2 mg/dL (8.5-10.1); Chloride 109 mmol/L (98-107); Cholesterol 148 mg/dL (200); Creatinine, Serum 1.55 mg/dL (0.55-1.02); EST Glomerular Filtration Rate 35 mL/min (>60); Est Glom Filt Rate - Afr Amer 42 mL/min (>60); Glucose 132 mg/dL (74-106); High Density Lipoprotein 34 mg/dL; Sodium Level 139 mmol/L (136-145); Triglycerides 277 mg/dL; Very Low Density Lipoprotein 55 mg/dL (5-40)
[2021-07-06 14:41] LABS: Microalbumin:Creatinine Ratio 25.2 mg/g CRE (<30 mg/g CRE)
== END ==
PROVIDERS: PCP Family Medicine; Referring Provider Family Medicine; Visit Provider Family Medicine
DX: E11.9 Type 2 diabetes mellitus without complications (principal)
CPT/HCPCS: 36415; 80048; 80061; 82043; 82570

== ENCOUNTER → 2021-08-23 10:49 | Outpatient (CLI) | payer MEDICARE, OTHER, SELFPAY ==
--- NOTE | 2021-08-23 10:58 | BD_ITS ---
STUDY: DUAL ENERGY X-RAY ABSORPTIOMETRY / DXA REASON FOR EXAM: Female, 76 years old. Annual screening TECHNIQUE: Bone Mineral Density (BMD) measurements of lumbar spine and bilateral hips were obtained. COMPARISON: Comparison is made with prior examination 07/04/2018. FINDINGS: Lumbar Spine (L1-L4): g/cm2 (1.066) / T-score (0.2) / Z-score (2.5) Findings are suggestive of normal bone density with a low fracture risk. Left Femur Total: g/cm2 (0.876) / T-score (-0.5) / Z-score (1.2) Left Femoral Neck: g/cm2 (0.770) / T-score (-0.7) / Z-score (1.3) Right Femur Total: g/cm2 (0.928) / T-score (-0.1) / Z-score (1.6) Right Femoral Neck: g/cm2 (0.786) / T-score (-0.6) / Z-score (1.5) The T-Scores on the most recent prior examination were: Lumbar Spine (L1-L4): There has been worsening of bone density since the previous examination. Left Femur Total: which represents a worsening of 10.7%. Right Femur Total: which represents a worsening of 12.1%. BD/Dexa Bone Density Study IMPRESSION: The patient is considered normal as outlined below according to World [employer] Organization (WHO) criteria with a low fracture risk. There has been worsening of bone density since the previous examination. Reference Information: The T-score is the number of standard deviations above or below the standard which is normal for young adults at their peak bone mineral density. The World Health Organization (WHO) interprets the T-scores as follows: Above -1 Normal bone density Between -1 and -2.5 Osteopenia Equal to / or below -2.5 Osteoporosis As a practical clinical guideline, osteopenia may be graded as follows: Mild -1 through -1.5 Moderate -1.6 through -2.0 Severe -2.1 through -2.4 The Z-score is the number of standard deviations above or below age-matched controls. A Z-score of less than -1.5 would be considered abnormal. References: 1. NIH Osteoporosis and Related Bone Diseases www osteo.org 2. International Society for Clinical Densitometry www iscd.org 3. National Osteoporosis Foundation www nof.org Electronically Signed: Cleve Loaiza MD at 8:50 EDT , Service support ,
== END ==
PROVIDERS: PCP Family Medicine; Referring Provider Internal Medicine Medical Oncology; Visit Provider Internal Medicine Medical Oncology
DX: C50.412 Malignant neoplasm of upper-outer quadrant of left female breast (principal); Z78.0 Asymptomatic menopausal state; Z71.0 Person encountering health services to consult on behalf of another person
CPT/HCPCS: 77080

== ENCOUNTER → 2022-05-05 | Outpatient (CLI) | payer MEDICARE, OTHER, SELFPAY | END | disposition home or self-care (01) | PROVIDERS: PCP Family Medicine; Visit Provider Family Medicine | DX: N39.0 Urinary tract infection, site not specified (principal) | CPT/HCPCS: 87086; 87088; 87186 ==

== ENCOUNTER 2022-05-18 18:53 | Inpatient (IN) | payer MEDICARE, OTHER, SELFPAY ==
[2022-05-18 18:54] VITALS: BP 165/79; PULSE 75; RESP 18; TEMP 36.8; O2SAT 100; BMI 22.6
--- NOTE | 2022-05-18 19:26 | EKG12_ITS ---
Test Reason : CP Blood Pressure : / mmHG Vent. Rate : 074 BPM Atrial Rate : 074 BPM P-R Int : 186 ms QRS Dur : 102 ms QT Int : 430 ms P-R-T Axes : 043 -40 032 degrees QTc Int : 477 ms Sinus rhythm with Premature atrial complexes Left axis deviation Septal infarct , age undetermined Abnormal ECG Confirmed by DOMINGUEZ MARIN, RELL ([id number]), newspaper or periodical editor VELIA GILLIAM ([id number]) on 05/20/2022 9:26:07 AM Referred By: LYNNE Confirmed By:RELL MIX MD
--- NOTE | 2022-05-18 19:26 | ED.VIS.CHEST ---
HPI History of Present Illness Chief Complaint: Back Detail of Chief Complaint: Chest pain initially now back pain Informant: patient Onset/Context/Timing Onset: Yesterday (Onset 1600. 4 hours later developed upper back pain its been constant since) Activity at onset: sudden Timing: Continuous Quality: Positive for Pressure Location: Left Chest Current Severity: Now complains of upper back pain on the left Maximum Severity: Moderate Worsened By: Nothing Relieved By: Nothing Associated Symptoms: Positive for Nausea; Negative for Vomiting, Diaphoresis, Dyspnea, Cough, Fever, Lightheadedness, Acid Reflux or Palpitations Narrative Narrative: Patient is a 77-year-old woman who presents with left-sided pressure sensation that lasted for hours and has had back pain since 1900 yesterday. She has no known history of coronary disease. She does have history hypertension, hyperlipidemia and diabetes. She does have history of breast cancer with mastectomy in 1999 on the right. She had recurrence of breast cancer on the left and underwent mastectomy in 2004. She then developed uterine cancer and had a hysterectomy in 2009. She denies history of VTE. She denies leg pain, swelling discoloration. She denies rash or lesions on her back or chest. She states she had her rub her back with no improvement. It did not worsen the pain either. She denies intolerance to greasy or fried foods. She denies black or maroon-colored stool. She denies leg pain, swelling or discoloration. She denies history of reflux. Prior Similar Symptoms: No CVD Risk Factors: Positive for Hypertension, Diabetes and Hypercholesterolemia; Negative for Family History 1' </=55 or Smoking PE Risk Factors: Positive for Cancer (Patient has been cancer free for 10 years.); Negative for Recent Travel/Surgery, Recent Immobilization, Prior DVT or PE or OCP + Smoking + >/=35 TAD Risk Factors: Positive for Hypertension; Negative for Marfan's Syndrome or Family History [facility] Medical History Ankle fracture, right Breast cancer Diabetes Endometrial cancer Hypertension Hypokalemia Nasal fracture Ulcer Home Medications aspirin 81 mg tablet,delayed release 81 mg PO DAILY heart health 08/07/14 [History Last Taken 07/09/19] lisinopril 2.5 mg tablet 10 mg PO DAILY blood pressure 08/07/14 [History Last Taken 07/09/19] metformin 500 mg tablet 500 mg PO 0800 diabetes 08/07/14 [History Last Taken 07/09/19] simvastatin 10 mg tablet 10 mg PO QHS cholesterol 07/09/19 [History Last Taken 07/08/19] acetaminophen 325 mg tablet 650 mg PO Q6H PRN PRN Non-cardiac pain (mod-severe) 07/12/19 [Rx Last Taken Unknown] pantoprazole 40 mg tablet,delayed release 40 mg PO DAILY PRN PRN heart burn 05/19/22 [History Last Taken Unknown] aspirin 81 mg tablet,delayed release 81 mg PO BREAKFAST #0 tabs 05/20/22 [Rx Last Taken Unknown] carvedilol 3.125 mg tablet 3.125 mg PO BID 30 days #60 tabs 05/20/22 [Rx Last Taken Unknown] sacubitril 24 mg-valsartan 26 mg tablet (Entresto) 1 tab PO BID 30 days #60 tabs 05/20/22 [Rx Last Taken Unknown] spironolactone 25 mg tablet 25 mg PO DAILY #30 tabs 05/20/22 [Rx Last Taken Unknown] Allergy/AdvReac Type Severity Reaction Status Date / Time No Known Allergies Allergy Verified 07/19/21 13:44 Family History Mother Alzheimer disease Hyperlipidemia Father Heart disease Surgical History H/O: hysterectomy History of mastectomy History of tubal ligation Social History household members: spouse housing: house number of children: 2 current occupational status: retired Smoking Status: Never smoker substance use type: does not use ROS ROS ED Constitutional Constitutional ED: Denies chills, fever(s), subjective, sweats or weight loss Eyes Eyes: Reports none ENT ENT ED: Denies ear pain, rhinorrhea or sore throat Cardiovascular Cardiovascular: Reports as per HPI; Denies orthopnea or paroxysmal nocturnal dyspnea Respiratory/Chest Respiratory/Chest: Denies cough, dyspnea, dyspnea on exertion, orthopnea or paroxysmal nocturnal dyspnea Gastrointestinal Gastrointestinal: Denies abdominal pain, constipation, diarrhea, melena, nausea or vomiting Genitourinary Genitourinary ED: Denies dysuria, hematuria or urinary frequency Musculoskeletal Musculoskeletal: Reports back pain; Denies arthralgias, myalgias or neck pain Integumentary Denies Abrasions or rash Neurologic Neurologic: Denies headache(s), paresthesias or weakness Psychiatric Psychiatric: Denies anxiety or depression Hematologic/Lymphatic Hematologic/Lymphatic: Denies easy bleeding, easy bruising or lymphadenopathy EXAM Physical Exam Const Vital Signs: 05/18/22 18:54 05/18/22 19:32 05/18/22 22:35 Temperature 98.2 F Temperature Source Temporal Pulse Rate 75 69 Respiratory Rate 18 18 Blood Pressure 165/79 H 150/78 H Blood Pressure Mean 107 102 Pulse Ox 100 99 Oxygen Delivery Method Room Air Room Air Room Air Positive well nourished, well developed and obese; Negative for cachectic, contractures or unkempt General Appearance ED: well developed and NAD; Negative for unkempt, cachectic or contractures Nutritional Appearance: obese; Negative for cachectic HEENT Reports moist mucous membranes HEENT Narrative: Ears normal. Nares patent. Uvula midline. There is no angioedema. There is no erythema exudate the posterior pharynx. normocephalic and atraumatic Eyes PERRL and EOMs intact bilaterally Eyes Narrative: Conjunctive a pink. There is no scleral icterus. Neck no lymphadenopathy, supple and no JVD Chest Wall Chest Narrative: S/p mastectomy, bilateral Resp normal respiratory effort and clear to auscultation bilaterally Cardio regular rate, regular rhythm, S1 normal heart sound, S2 normal heart sound and no murmurs GI normal to inspection, nondistended, normoactive bowel sounds, soft to palpation, non-tender and non-distended Back/Spine no CVA tenderness Cervical Spine: Negative for cervical spine tenderness Extremity normal to inspection Extremity Narrative: There is no asymmetry, swelling, discoloration, leg vein distention, palpable cords or tenderness along the distribution of the deep venous system. Neuro oriented x3, CN's II-XII intact bilaterally and no sensory deficits noted Sensorium / Orientation: awake and alert Motor Exam: strength 5/5 throughout Psych mental status grossly normal Appearance: Negative for unkempt Skin no rashes or lesions noted and no wounds Heart Score History: Moderately Suspicious ECG: Normal Age: >/= 65 years Risk Factors: >/= 3 Risk Factors or History of CAD Troponin: </= Normal Limit Score: 5 MDM MDM MDM Narrative Medical decision making narrative: Black is cardiac versus noncardiac etiology of chest pain. Will obtain EKG, troponin and 2-hour troponin as well as CBC to assess white count and rule out anemia. Basic metabolic panel to assess renal function. Patient was treated with aspirin. Lab Data Attestation: I reviewed the patient's lab results. Lab results narrative: 2-hour troponin had a rise of 25. With a heart score of 5 rising troponin we will have hospitalist see for observation and cardiac rule out. Labs: Laboratory Results - last 24 hr 05/18/22 05/18/22 05/18/22 19:50 19:50 22:05 WBC 5.9 RBC 3.78 L Hgb 11.5 L Hct 35.8 L MCV 94.7 MCH 30.4 MCHC 32.1 RDW Std Deviation 46.0 H RDW Coeff of Leigh 13.2 Plt Count 329 MPV 9.9 Immature Gran % (Auto) 0.700 Neut % (Auto) 59.7 Lymph % (Auto) 24.1 [place] % (Auto) 11.1 H Eos % (Auto) 3.4 Baso % (Auto) 1.0 Absolute Neuts (auto) 3.5 Absolute Lymphs (auto) 1.41 Nucleated RBC % 0 Sodium 139 Potassium 3.7 Chloride 105 Carbon Dioxide 26.0 Anion Gap 8 BUN 36 H Creatinine 1.27 H Estim Creat Clear Calc 28.88 Est GFR (MDRD) Af Amer 53 L Est GFR (MDRD) Non-Af 44 L BUN/Creatinine Ratio 28.3 H Glucose 113 H Calcium 9.6 Troponin I High Sens 5 30 Radiography Chest X-Ray - ED: 1 View and Read by ED Physician (Single view portable chest x-ray was independently interpreted reviewed by me at 2021. Right hemidiaphragm is elevated. There is a port noted on the right. Cardiac silhouette size normal. Perihilar regions unremarkable. Surgical clips noted right upper quadrant. Osseous structures are unremark) Diagnostic Testing: Clinical Impression(s) from Imaging Studies Chest X-Ray 05/18/22 20:10 IMPRESSION: There are no acute findings. Electronically Signed: Mick Barrow MD at 20:34 EDT , Echocardiogram 05/19/22 06:47 Interpretation Summary The estimated ejection fraction is 40-45 %. Semental wall mtion anteroapical reduced LV systolic function in comparison to prior echo Ordering Physician: Angi Huff Referring Physician: Mike Pettit Performed By: Carla Mendoza RCS Rhythm Strip Rhythm Strip: Sinus Rhythm Rate: 77 Ectopy: None EKG Initial EKG: Attestation: I personally reviewed and interpreted this EKG as follows: Interpretation: Sinus Rhythm (Rate is 77. There is a premature atrial complex noted. AL intervals 186 ms. QRS duration 102 ms. QT duration 430 ms. [place] to left. There is decreased anterior force.) Discharge Plan Dx/Rx/DC Orders Clinical Impression: Chest pressure, Diabetes mellitus, Hyperlipidemia, Hypertension Disposition Disposition: Acute Care Hospital [facility]
[2022-05-18] MEDS: Aspirin 81 MG TAB.CHEW 324 MG PO (19:35)
--- NOTE | 2022-05-18 19:59 | ED.RN ---
Patient noted to have power port to right upper chest wall. Request granted for access to port for blood work however patient gives history and uses hands to demonstrate that blood is usually not retrieved from normal access spot on port. Patient points to and describes this spot to be outside the triangle for identification and proper placement spot. I described the manufacturers recommendations of where ports are accessed and patient demonstrated knowledge. Port was accessed afterwards but no blood was retrieved. This nurse believes that the port is inaccessible at this point due to not knowing whether other access attempts were outside of the roll dough divider recommendations for access and is uncertain of patency.
[2022-05-18 20:02] LABS: Absolute Lymphocyte Count 1.41 X10^3/uL (0.83-4.51); Absolute Neutrophil Count 3.5 X10^3/uL (2.0-7.7); Basophil# 0.06 X10^3/uL; Eosinophils% 3.4 % (0-5); Hematocrit 35.8 % (37-47); Hemoglobin 11.5 g/dL (12.0-15.0); Lymphocyte # 1.41 X10^3/ul (0.83-4.51); Lymphocyte % 24.1 % (19-41); Mean Corp Hgb Conc 32.1 g/dL (32-36); Mean Corpuscular Hgb 30.4 pg (27.0-32.0); Mean Corpuscular Volume 94.7 fL (81-99); Mean Platelet Vol. 9.9 fl (6.2-12.0); Monocyte# 0.65 X10^3/uL; Monocyte% 11.1 % (0-10); NRBC Flagged by Analyzer 0 % (0-5); Neutrophil % 59.7 % (47-70); Platelet Count 329 K/mm3 (150-450); RBC Distribution Width CV 13.2 % (11.6-14.6); Red Blood Count 3.78 M/mm3 (4.2-5.4); White Blood Count 5.9 K/mm3 (4.4-11.0)
--- NOTE | 2022-05-18 20:10 | RAD_ITS ---
STUDY: XR Chest 1 View 05/18/2022 8:11 PM REASON FOR EXAM: Female, 77 years old. CHEST PAIN chest pain COMPARISON: None TECHNIQUE: XR Chest 1 View FINDINGS: There is no demonstrated pleural abnormality. There is a right Port-A-Cath and/or mediport in place. The tip is in the superior vena cava. There is no pneumothorax. Normal heart size. Normal mediastinum. Normal jignesh. Prominent appearing increased interstitial lung markings. Normal visualized pulmonary arteries. There is atherosclerotic calcification of the aortic arch with tortuosity. There are diffuse degenerative changes of the visualized thoracic spine. There is degenerative osteoarthritis of the bilateral shoulders. There is no demonstrated abnormality of the visualized soft tissue structures of the upper abdomen. RAD/Chest 1 View (Portable) IMPRESSION: There are no acute findings. Electronically Signed: Mick Barrow MD at 20:34 EDT ,
[2022-05-18 20:31] LABS: Anion Gap 8 (5-15); BUN 36 mg/dL (7-18); BUN/Creat Ratio 28.3 RATIO (10-20); Calcium,Total 9.6 mg/dL (8.5-10.1); Chloride 105 mmol/L (98-107); Creatinine, Serum 1.27 mg/dL (0.55-1.02); EST Glomerular Filtration Rate 44 mL/min (>60); Est Glom Filt Rate - Afr Amer 53 mL/min (>60); Estimated Creatinine Clearance 28.88 ml/min; Glucose 113 mg/dL (74-106); Potassium 3.7 mmol/L (3.5-5.1); Sodium Level 139 mmol/L (136-145); Troponin-I HS (w/2H Reflex) 5 pg/mL (3.0-54.0)
[2022-05-18 22:01] LABS: Reflex Troponin-HS? (from REC) Y
[2022-05-18 22:35] VITALS: BP 150/78; PULSE 69; RESP 18; O2SAT 99
[2022-05-18 22:39] LABS: Troponin-I HS 30 pg/mL (3.0-54.0)
[2022-05-18 23:23] VITALS: BP 139/80; PULSE 67; RESP 18; TEMP 36.2; O2SAT 95
--- NOTE | 2022-05-18 23:25 | HP.PCM.HOS_ITS ---
[facility] - General General Date of Admission: 05/18/22 Date of Service: 05/18/22 Chief Complaint: Chest pain HPI Narrative MAE ANGUIANO, is a 77 F with a significant history of diabetes mellitus; hyperlipidemia; hypertension; breast and uterine cancer status post bilateral mastectomy and complete hysterectomy who presents to the emergency department with substernal chest pain that started a day before presentation. Her Chest pain started at rest. At onset her chest pain was 4 out of 10 but it has improved. Chest pain radiated to in between her shoulder blades. Associated with her symptoms is nausea; diaphoresis; and shortness of breath. She denies any vomiting with the chest pain. However two days before presentation she had an episode of vomiting. She denies any ameliorating or aggravating factors to the chest pain. Although patient symptoms had improved patient encouraged her to come to the emergency department. She report that her father in her 70s with heart disease so she is concerned as she is also in her 70s. [facility] Medical History (Updated 05/19/22 @ 04:[address] Edson Hazel MD) Ankle fracture, right Breast cancer Diabetes Endometrial cancer Hypertension Hypokalemia Nasal fracture Ulcer Home Medications aspirin 81 mg tablet,delayed release 81 mg PO DAILY heart health 08/07/14 [History Last Taken 07/09/19] lisinopril 2.5 mg tablet 10 mg PO DAILY blood pressure 08/07/14 [History Last T aken 07/09/19] metformin 500 mg tablet 500 mg PO 0800 diabetes 08/07/14 [History Last Taken 07/09/19] simvastatin 10 mg tablet 10 mg PO QHS cholesterol 07/09/19 [History Last Taken 07/08/19] acetaminophen 325 mg tablet 650 mg PO Q6H PRN PRN Non-cardiac pain (mod-severe) 07/12/19 [Rx Last Taken Unknown] pantoprazole 40 mg tablet,delayed release 40 mg PO DAILY PRN PRN heart burn 05/19/22 [History Last Taken Unknown] Allergy/AdvReac Type Severity Reaction Status Date / Time No Known Allergies Allergy Verified 07/19/21 13:44 Family History Mother Alzheimer disease Hyperlipidemia Father Heart disease Surgical History H/O: hysterectomy History of mastectomy History of tubal ligation Social History household members: spouse housing: house number of children: 2 current occupational status: retired Smoking Status: Never smoker substance use type: does not use ROS ROS Narrative Pertinent positives and pertinent negatives as noted in HPI. All other systems were reviewed and are negative. Vital Signs Vital Signs Vital Signs: 05/18/22 18:54 05/18/22 19:32 05/18/22 22:35 Temperature 98.2 F Temperature Source Temporal Pulse Rate 75 69 Respiratory Rate 18 18 Blood Pressure 165/79 H 150/78 H Blood Pressure Mean 107 102 Pulse Ox 100 99 Oxygen Delivery Method Room Air Room Air Room Air 05/18/22 23:23 Temperature 97.1 F L Temperature Source Temporal Pulse Rate 67 Respiratory Rate 18 Blood Pressure 139/80 H Blood Pressure Mean 99 Pulse Ox 95 Oxygen Delivery Method Room Air Weight Weight: 54.431 kg Body Mass Index (BMI) 22.6 Physical Exam Narrative Physical exam: General: Well-nourished, well-developed. Head: Normocephalic, atraumatic, no tenderness Eyes: Vision is grossly intact. EOMI ENT, no trauma, moist mucous membranes, no rhinorrhea Neck: Nontender, full range of motion, no spinal tenderness, deformities, step- off CVS: Regular rate and rhythm. S1-S2 present. No murmur, gallop or rub. Respiratory : clear to auscultation bilaterally, chest wall nontender, no wheezing Abdomen: Soft, nontender, nondistended, normal bowel sounds, no masses : Deferred Back: Nontender, no CVA tenderness, no midline spinal tenderness, deformities, step-offs Extremities: Nontender full range of motion, no trauma Skin: Normal color, no trauma, abrasions Neuro: Alert, oriented, cranial nerves II through XII grossly intact. Psychiatry: Normal mood. Normal affect. Not depressed. Not anxious. Results Lab / Micro Data Result Diagrams: 05/19/22 03:05 05/19/22 03:05 Labs: Laboratory Results - last 24 hr 05/18/22 19:50: WBC 5.9, RBC 3.78 L, Hgb 11.5 L, Hct 35.8 L, MCV 94.7, MCH 30.4, MCHC 32.1, RDW Std Deviation 46.0 H, RDW Coeff of Leigh 13.2, Plt Count 329, MPV 9.9, Immature Gran % (Auto) 0.700, Neut % (Auto) 59.7, Lymph % (Auto) 24.1, [place] % (Auto) 11.1 H, Eos % (Auto) 3.4, Baso % (Auto) 1.0, Absolute Neuts (auto) 3.5, Absolute Lymphs (auto) 1.41, Nucleated RBC % 0 05/18/22 19:50: Sodium 139, Potassium 3.7, Chloride 105, Carbon Dioxide 26.0, Anion Gap 8, BUN 36 H, Creatinine 1.27 H, Estim Creat Clear Calc 28.88, Est GFR (MDRD) Af Amer 53 L, Est GFR (MDRD) Non-Af 44 L, BUN/Creatinine Ratio 28.3 H, Glucose 113 H, Calcium 9.6, Troponin I High Sens 5 05/18/22 22:05: Troponin I High Sens 30 Rhythm Strip Rhythm Strip: Sinus Rhythm Rate: 77 Ectopy: None Radiology Impression Chest X-Ray 05/18/22 20:10 IMPRESSION: There are no acute findings. Electronically Signed: Mick Barrow MD at 20:34 EDT Reading Location ID and State: [facility] / [place] , Service support , Assessment & Plan Assessment/Plan (1) NSTEMI, initial episode of care: (2) Chest pressure: (3) Diabetes mellitus: QUALIFIERS: Diabetes mellitus complication status: with other specified complication Diabetes mellitus watermelon inspector insulin use: without watermelon inspector use Diabetes mellitus type: type 2 Qualified Code(s): E11.69 - Type 2 diabetes mellitus with other specified complication (4) Hypertension: QUALIFIERS: Hypertension type: essential hypertension Qualified Code(s): I10 - Essential (primary) hypertension PLAN: Plan NSTEMI Place on a monitored bed at progressive care unit Actual CXR image was independently visualized. No acute cardiopulmonary process was noted. Actual EKG tracing was independently visualized. EKG tracing showed T wave flattening in V1, V2 and aVL. Aspirin 324 mg x 1 given in the emergency department. ASA 81 mg p.o. daily ordered Morphine as needed for pain ordered We will check lipid panel. High-sensitivity troponin: 704 < 30<5. Heparin drip ordered. Nurse reports EKG changes on telemetry. Follow-up twelve-lead EKG with changes. Cardiology consult Diabetes mellitus Blood glucose is stable Hold metformin. Accu-Chek ordered. Hypertension Blood pressure is not within goal Lisinopril continued Trend blood pressure and adjust blood pressure medications. DVT: Not indicated has patient has been started on heparin drip for Afib Charges/Coding Visit Charges OBSV E&M: 12250 Initial observation care L3
--- NOTE | 2022-05-18 23:54 | EKG12_ITS ---
Test Reason : tele changes Blood Pressure : / mmHG Vent. Rate : 075 BPM Atrial Rate : 075 BPM P-R Int : 184 ms QRS Dur : 106 ms QT Int : 420 ms P-R-T Axes : 046 -40 027 degrees QTc Int : 469 ms Normal sinus rhythm Left axis deviation Possible Inferior infarct , age undetermined Anterolateral infarct , age undetermined Abnormal ECG Confirmed by DOMINGUEZ MARIN, RELL ([id number]), design editor VELIA GILLIAM ([id number]) on 05/22/2022 10:35:51 AM Referred By: Confirmed By:RELL MIX MD
[2022-05-18 23:55] VITALS: BP 153/96; PULSE 80; RESP 18; TEMP 36.5; O2SAT 99
[2022-05-19] VITALS (20 sets, daily range): BP systolic 95–132; BP diastolic 52–75; PULSE 54–81; RESP 16–20; TEMP 35.8–36.6; O2SAT 94–100; BMI 24.2
[2022-05-19 01:10] LABS: Bedside Glucose 110 mg/dL (74-106)
--- NOTE | 2022-05-19 01:27 | NURSING ---
Pt has IV access to left arm with a known history of a mastectomy, pt states it was greater than 10 years ago however there were lymph nodes removed. Pt states she believes the IV site should be fine to have in that arm. Staff offered to reattempt access of the port by an rn resource nurse, however; Pt declined, states she will have the infusion center try on the and if it doesn't work she will have it removed.
[2022-05-19 02:08] LABS: Troponin-I HS 704 pg/mL (3.0-54.0)
[2022-05-19 03:12] LABS: Absolute Lymphocyte Count 1.08 X10^3/uL (0.83-4.51); Absolute Neutrophil Count 4.2 X10^3/uL (2.0-7.7); Basophil# 0.05 X10^3/uL; Basophil% 0.8 % (0-1); Eosinophil# 0.25 X10^3/uL; Eosinophils% 3.9 % (0-5); Hematocrit 34.6 % (37-47); Hemoglobin 11.2 g/dL (12.0-15.0); Lymphocyte # 1.08 X10^3/ul (0.83-4.51); Mean Corp Hgb Conc 32.4 g/dL (32-36); Mean Corpuscular Hgb 30.1 pg (27.0-32.0); Mean Platelet Vol. 9.8 fl (6.2-12.0); NRBC Flagged by Analyzer 0 % (0-5); Neutrophil # 4.24 X10^3/uL (2.7-7.7); Neutrophil % 66.7 % (47-70); Platelet Count 318 K/mm3 (150-450); RBC Distribution Width CV 13.2 % (11.6-14.6); RBC Distribution Width SD 44.7 fl (35.1-43.9); Red Blood Count 3.72 M/mm3 (4.2-5.4); White Blood Count 6.4 K/mm3 (4.4-11.0)
[2022-05-19 03:21] LABS: Prothrombin Time (Protime)PT. 12.4 SECONDS (11.7-14.9)
[2022-05-19 03:22] LABS: Partial Thromboplast Time 28.9 Seconds (24.1-36.2)
[2022-05-19] MEDS: Heparin Injection (Vial) 5,000 UNIT/ML VIAL 4000 UNIT IV (03:27)
[2022-05-19 03:28] LABS: Anion Gap 7 (5-15); BUN 32 mg/dL (7-18); BUN/Creat Ratio 30.8 RATIO (10-20); Calcium,Total 9.2 mg/dL (8.5-10.1); Chloride 108 mmol/L (98-107); Cholesterol 140 mg/dL (200); Creatinine, Serum 1.04 mg/dL (0.55-1.02); EST Glomerular Filtration Rate 55 mL/min (>60); Est Glom Filt Rate - Afr Amer 66 mL/min (>60); Estimated Creatinine Clearance 33.57 ml/min; Glucose 106 mg/dL (74-106); High Density Lipoprotein 35 mg/dL; Potassium 3.7 mmol/L (3.5-5.1); Sodium Level 139 mmol/L (136-145); Triglycerides 189 mg/dL; Very Low Density Lipoprotein 38 mg/dL (5-40)
[2022-05-19] MEDS: HEPARIN/D5w 25,000 UNITS 25,000 UNITS/250 ML IV.SOLN. 8 UNITS CONT INF (03:28)
--- NOTE | 2022-05-19 04:02 | EKG12_ITS ---
Test Reason : cp admit Blood Pressure : / mmHG Vent. Rate : 076 BPM Atrial Rate : 076 BPM P-R Int : 144 ms QRS Dur : 112 ms QT Int : 434 ms P-R-T Axes : 000 -37 073 degrees QTc Int : 488 ms Normal sinus rhythm Left axis deviation Possible Inferior infarct , age undetermined Anteroseptal infarct , age undetermined, cannot be excluded Abnormal ECG Confirmed by DOMINGUEZ MARIN, RELL ([id number]), copy editor VELIA GILLIAM ([id number]) on 05/22/2022 10:36:45 AM Referred By: Confirmed By:RELL MIX MD
--- NOTE | 2022-05-19 04:21 | NURSING ---
Tele changes noted in second lead, reviewed changes with charge nurse, ekg obtained. Sent ekg to physician for review. Responded no stemi. Pt denies any current chest discomfort. O2 in use at 2l was effective for resolving pain. Cardiology consult for am, heparin drip infusing as ordered. Physician states no new orders at this time.
[2022-05-19 06:01] LABS: Cholesterol 138 mg/dL (200); High Density Lipoprotein 36 mg/dL; Triglycerides 179 mg/dL; Very Low Density Lipoprotein 36 mg/dL (5-40)
[2022-05-19] MEDS: Lisinopril 10 MG Tablet PO (06:36)
[2022-05-19] MEDS: Aspirin E.C. 81 MG Tablet PO (06:37)
--- NOTE | 2022-05-19 06:47 | ECHOD_ITS ---
Reason For Study: CHEAT PAIN Procedure This was a 2D Doppler, Color Flow transthoracic echocardiogram. Exam performed portable in patient room. Left Ventricle Normal left ventricle. The estimated ejection fraction is 40-45 %. Right Ventricle Normal right ventricle. Normal systolic function. Atria Normal left atrium. Normal right atrium. Mitral Valve There is mild mitral annular calcification. Trivial mitral valve insufficiency. Tricuspid Valve Normal tricuspid valve. Trivial eccentric tricuspid valve insufficiency. Aortic Valve Aortic sclerosis, no stenosis. Trivial aortic valve insufficiency. Pulmonic Valve The pulmonic valve is not well visualized. Great Vessels Normal aortic root. Pericardium/Pleural No pericardial effusion. MMode/2D Measurements & Calculations RVDd: 2.7 cm LAV(MOD-bp): 37.8 ml LVAd ap4: 23.1 cm2 LAV(MOD-bp) Indexed: 24.8 ml/m2 LVLd ap4: 7.1 cm LAV(MOD-sp2): 37.8 ml EDV(MOD-sp4): 61.6 ml LAV(MOD-sp4): 30.7 ml EDV(sp4-el): 63.8 ml LVAs ap4: 15.1 cm2 LVLs ap4: 6.5 cm ESV(MOD-sp4): 29.2 ml ESV(sp4-el): 30.1 ml EF(MOD-sp4): 52.6 % EF(sp4-el): 52.9 % SV(MOD-sp4): 32.4 ml SV(sp4-el): 33.7 ml LA A4 area: 11.8 cm2 Doppler Measurements & Calculations MV E max tristen: 50.1 cm/sec Lat Peak E' Tristen: 5.4 cm/sec Med Peak E' Tristen: 3.6 cm/sec MV A max tristen: 82.0 cm/sec E/E' lat: 9.3 E/E' med: 13.9 MV E/A: 0.61 Ao V2 max: 88.4 cm/sec LV V1 max: 76.1 cm/sec PA V2 max: 81.9 cm/sec Ao max P.1 mmHg LV V1 max P.3 mmHg ECHO/Echo Complete Interpretation Summary The estimated ejection fraction is 40-45 %. Semental wall mtion anteroapical reduced LV systolic function in comparison to prior echo Ordering Physician: Angi Huff Referring Physician: Mike Pettit Performed By: Carla Mendoza RCS
[2022-05-19 07:01] LABS: Bedside Glucose 117 mg/dL (74-106)
[2022-05-19 07:31] LABS: Troponin-I HS 1067 pg/mL (3.0-54.0)
--- NOTE | 2022-05-19 08:40 | PCM.CONS.C ---
Documented by User: Nicole PATINO PA 05/19/22 14:33 Assessment & Plan Assessment/Plan (1) NSTEMI, initial episode of care: (2) Hypertension: QUALIFIERS: Hypertension type: essential hypertension Qualified Code(s): I10 - Essential (primary) hypertension (3) Hyperlipidemia: QUALIFIERS: Hyperlipidemia type: unspecified Qualified Code(s): E78.5 - Hyperlipidemia, unspecified PLAN: Plan With elevated cardiac enzymes pt is scheduled to have heart cath today echo is pending will add low dose betablocker, increase statin. She is currently on RIDDHI and ASA. after cardiac cath add antiplatelet. Currently on heparin drip. HPI Consult Data Date of Consult: 05/19/22 HPI Narrative HPI Narrative: MAE ANGUIANO, is a 77 F who presented to [facility] ER on 05/18/2022 for chest pain, left sided pressure, that radiated to her should blades that lasted for several hours. She also had nausea, diaphoresis, lightheadedness yesterday. She did not have any syncope. She noted that she had back pain since the day before. Last week she had chest heaviness that resolved on its own. She felt that this was muscular. On Sunday( may 16) she had episodes of nausea/vomiting. Initial troponin was 5, second troponin increased to 30. With the rise in troponin she was admitted for observation. Troponin continued to increase to 704, 1067. She does currently have back pain that is rated as a 2. She has no known history of coronary disease.? She does have history hypertension, hyperlipidemia and diabetes.? She does have history of breast cancer with mastectomy in 1999 on the right.? She had recurrence of breast cancer on the left and underwent mastectomy in 2004.? She then developed uterine cancer and had a hysterectomy in 2009. [facility] Medical History Ankle fracture, right Breast cancer Diabetes Endometrial cancer Hypertension Hypokalemia Nasal fracture Ulcer Home Medications aspirin 81 mg tablet,delayed release 81 mg PO DAILY heart health 08/07/14 [History Last Taken 07/09/19] lisinopril 2.5 mg tablet 10 mg PO DAILY blood pressure 08/07/14 [History Last Taken 07/09/19] metformin 500 mg tablet 500 mg PO 0800 diabetes 08/07/14 [History Last Taken 07/09/19] simvastatin 10 mg tablet 10 mg PO QHS cholesterol 07/09/19 [History Last Taken 07/08/19] acetaminophen 325 mg tablet 650 mg PO Q6H PRN PRN Non-cardiac pain (mod-severe) 07/12/19 [Rx Last Taken Unknown] pantoprazole 40 mg tablet,delayed release 40 mg PO DAILY PRN PRN heart burn 05/19/22 [History Last Taken Unknown] Allergy/AdvReac Type Severity Reaction Status Date / Time No Known Allergies Allergy Verified 07/19/21 13:44 Family History Mother Alzheimer disease Hyperlipidemia Father Heart disease Surgical History H/O: hysterectomy History of mastectomy History of tubal ligation Social History household members: spouse housing: house number of children: 2 current occupational status: retired Smoking Status: Never smoker substance use type: does not use ROS Constitutional Constitutional: Denies change in weight, chills, fatigue, frequent falls, headache(s) or lethargy Eyes Eyes: Denies acute decrease in peripheral vision, blurry vision or change in vision ENT HEENT: Denies dizziness, dry mouth, epistaxis, headache(s), tinnitus or vertigo Cardiovascular Cardiovascular: Reports as per HPI and lightheadedness; Denies claudication, dyspnea at rest, dyspnea on exertion, edema, irregular heart rhythm, orthopnea, orthostatic symptoms, palpitations or pedal edema Respiratory/Chest Respiratory/Chest: Denies cough, dyspnea, dyspnea on exertion, tachypnea or wheezing Gastrointestinal Gastrointestinal: Reports nausea and vomiting; Denies abdominal pain, bloating, coffee ground emesis, diarrhea, heartburn, hematemesis, hematochezia or melena Genitourinary Genitourinary: Denies hematuria Musculoskeletal Musculoskeletal: Denies myalgias, numbness or tingling Neurologic Neurologic: Denies abnormal gait, abnormal speech, memory loss, paresthesias or weakness Physical Exam Const alert, oriented x3, no apparent distress and healthy appearing HEENT normocephalic, head/scalp atraumatic, hearing grossly normal bilaterally, external ears normal, external nose normal and moist oral mucous membranes Eyes PERRL, EOMs intact bilaterally, conjunctivae normal and no scleral icterus Neck no lymphadenopathy, supple and no JVD Resp normal respiratory effort and clear to auscultation bilaterally Cardio regular rate, regular rhythm, S1 normal heart sound, S2 normal heart sound, no murmurs, no rub, no gallops, no clicks, no JVD and peripheral pulses 2+ throughout GI normal to inspection, nondistended, normoactive bowel sounds, soft to palpation, non-tender and non-distended Extremity normal to inspection, normal capillary refill, no clubbing, cyanosis or edema and no pedal edema Neuro oriented x3, CN's II-XII intact bilaterally, moves all extremities and no focal motor deficits Psych cooperative and affect normal Risk Stratification Risk Stratification Applicable: Yes Age >/= 65: Yes >/= 3 CAD Risk Factors (HTN, HLD, DM, family hx of CAD, or current smoker): Yes Aspirin Use in the Past 7 Days: Yes Severe Angina (>/= episodes in 24 hours): Yes EKG ST Changes >/= 0.5mm: No Positive Cardiac Marker: Yes SUZIE Risk Stratification Score: 5 SUZIE % Risk: 25% Risk Charges/Coding Visit Charges Office Visits / Consults: 77603 IP Consult L4 Objective Data Vital Signs: Vital Signs Temp Pulse Resp BP Pulse Ox O2 Del Method O2 Flow Rate 97.9 F 69 18 114/68 98 Nasal Cannula 2 05/19/22 06:35 05/19/22 06:35 05/19/22 06:35 05/19/22 06:35 05/19/22 07:20 05/19/22 07:52 05/19/22 07:52 Oxygen Flow Rate (L/min) 2 Oxygen Delivery Method Nasal Cannula Weight: 124 lb 1.924 oz Body Mass Index (BMI) 24.2 Lab / Micro Data Result Diagrams: 05/19/22 03:05 05/19/22 03:05 Labs: Laboratory Results - last 24 hr 05/18/22 19:50: WBC 5.9, RBC 3.78 L, Hgb 11.5 L, Hct 35.8 L, MCV 94.7, MCH 30.4, MCHC 32.1, RDW Std Deviation 46.0 H, RDW Coeff of Leigh 13.2, Plt Count 329, MPV 9.9, Immature Gran % (Auto) 0.700, Neut % (Auto) 59.7, Lymph % (Auto) 24.1, [place] % (Auto) 11.1 H, Eos % (Auto) 3.4, Baso % (Auto) 1.0, Absolute Neuts (auto) 3.5, Absolute Lymphs (auto) 1.41, Nucleated RBC % 0 05/18/22 19:50: Sodium 139, Potassium 3.7, Chloride 105, Carbon Dioxide 26.0, Anion Gap 8, BUN 36 H, Creatinine 1.27 H, Estim Creat Clear Calc 28.88, Est GFR (MDRD) Af Amer 53 L, Est GFR (MDRD) Non-Af 44 L, BUN/Creatinine Ratio 28.3 H, Glucose 113 H, Calcium 9.6, Troponin I High Sens 5 05/18/22 22:05: Troponin I High Sens 30 05/19/22 00:42: POC Glucose 110 H 05/19/22 01:30: Troponin I High Sens 704 H* 05/19/22 03:05: WBC 6.4, RBC 3.72 L, Hgb 11.2 L, Hct 34.6 L, MCV 93.0, MCH 30.1, MCHC 32.4, RDW Std Deviation 44.7 H, RDW Coeff of Leigh 13.2, Plt Count 318, MPV 9.8, Immature Gran % (Auto) 0.600, Neut % (Auto) 66.7, Lymph % (Auto) 17.0 L, [place] % (Auto) 11.0 H, Eos % (Auto) 3.9, Baso % (Auto) 0.8, Absolute Neuts (auto) 4.2, Absolute Lymphs (auto) 1.08, Nucleated RBC % 0 05/19/22 03:05: Sodium 139, Potassium 3.7, Chloride 108 H, Carbon Dioxide 24.0, Anion Gap 7, BUN 32 H, Creatinine 1.04 H, Estim Creat Clear Calc 33.57, Est GFR (MDRD) Af Amer 66, Est GFR (MDRD) Non-Af 55 L, BUN/Creatinine Ratio 30.8 H, Glucose 106, Calcium 9.2, Triglycerides 189, Cholesterol 140, LDL Cholesterol 67, VLDL Cholesterol 38, HDL Cholesterol 35 L 05/19/22 03:05: PT 12.4, INR 1.0, APTT 28.9 05/19/22 03:05: Triglycerides 179, Cholesterol 138, LDL Cholesterol 66, VLDL Cholesterol 36, HDL Cholesterol 36 L 05/19/22 06:31: POC Glucose 117 H 05/19/22 06:40: Troponin I High Sens 1067 H* Rhythm Strip Rhythm Strip: Sinus Rhythm Rate: 77 Ectopy: None Cardiology Labs/Tests 05/18/22 19:50: WBC 5.9, RBC 3.78 L, Hgb 11.5 L, Hct 35.8 L, MCV 94.7, MCH 30.4, MCHC 32.1, Plt Count 329, MPV 9.9, Immature Gran % (Auto) 0.700, Neut % (Auto) 59.7, Lymph % (Auto) 24.1, [place] % (Auto) 11.1 H, Eos % (Auto) 3.4, Baso % (Auto) 1.0, Absolute Neuts (auto) 3.5, Nucleated RBC % 0 05/18/22 19:50: Sodium 139, Potassium 3.7, Chloride 105, Carbon Dioxide 26.0, Anion Gap 8, BUN 36 H, Creatinine 1.27 H, Est GFR (MDRD) Af Amer 53 L, Est GFR (MDRD) Non-Af 44 L, BUN/Creatinine Ratio 28.3 H, Glucose 113 H, Calcium 9.6 05/19/22 03:05: WBC 6.4, RBC 3.72 L, Hgb 11.2 L, Hct 34.6 L, MCV 93.0, MCH 30.1, MCHC 32.4, Plt Count 318, MPV 9.8, Immature Gran % (Auto) 0.600, Neut % (Auto) 66.7, Lymph % (Auto) 17.0 L, [place] % (Auto) 11.0 H, Eos % (Auto) 3.9, Baso % (Auto) 0.8, Absolute Neuts (auto) 4.2, Nucleated RBC % 0 05/19/22 03:05: Sodium 139, Potassium 3.7, Chloride 108 H, Carbon Dioxide 24.0, Anion Gap 7, BUN 32 H, Creatinine 1.04 H, Est GFR (MDRD) Af Amer 66, Est GFR (MDRD) Non-Af 55 L, BUN/Creatinine Ratio 30.8 H, Glucose 106, Calcium 9.2, Triglycerides 189, Cholesterol 140, LDL Cholesterol 67, VLDL Cholesterol 38, HDL Cholesterol 35 L 05/19/22 03:05: PT 12.4, INR 1.0, APTT 28.9 05/19/22 03:05: Triglycerides 179, Cholesterol 138, LDL Cholesterol 66, VLDL Cholesterol 36, HDL Cholesterol 36 L Rhythm: EKG: Radiography Diagnostic Testing: Radiology Impression Chest X-Ray 05/18/22 20:10 IMPRESSION: There are no acute findings. Electronically Signed: Mick Barrow MD at 20:34 EDT , Documented by User: Dr. Angi Huff MD 05/19/22 18:18 Assessment & Plan Assessment/Plan (1) NSTEMI, initial episode of care: (2) Hypertension: QUALIFIERS: Hypertension type: essential hypertension Qualified Code(s): I10 - Essential (primary) hypertension (3) Hyperlipidemia: QUALIFIERS: Hyperlipidemia type: unspecified Qualified Code(s): E78.5 - Hyperlipidemia, unspecified PLAN: Plan With elevated cardiac enzymes pt is scheduled to have heart cath today echo is pending will add low dose betablocker, increase statin. She is currently on RIDDHI and ASA. after cardiac cath add antiplatelet. Currently on heparin drip. I independently examined this patient, reviewed the data including the EKG, echocardiogram, telemetry current lab evaluation Patient had non-ST elevation [place] with remarkably abnormal LV G showing anteroapical hypokinesia with normal left main, LAD left circumflex and RCA consistent with Takotsubo syndrome. We will continue to monitor this patient with medical therapy. Agree with the cardiac care plan as documented by the midlevel. HPI Consult Data Date of Consult: 05/19/22 [facility] Medical History Ankle fracture, right Breast cancer Diabetes Endometrial cancer Hypertension Hypokalemia Nasal fracture Ulcer Home Medications aspirin 81 mg tablet,delayed release 81 mg PO DAILY heart health 08/07/14 [History Last Taken 07/09/19] lisinopril 2.5 mg tablet 10 mg PO DAILY blood pressure 08/07/14 [History Last Taken 07/09/19] metformin 500 mg tablet 500 mg PO 0800 diabetes 08/07/14 [History Last Taken 07/09/19] simvastatin 10 mg tablet 10 mg PO QHS cholesterol 07/09/19 [History Last Taken 07/08/19] acetaminophen 325 mg tablet 650 mg PO Q6H PRN PRN Non-cardiac pain (mod-severe) 07/12/19 [Rx Last Taken Unknown] pantoprazole 40 mg tablet,delayed release 40 mg PO DAILY PRN PRN heart burn 05/19/22 [History Last Taken Unknown] Allergy/AdvReac Type Severity Reaction Status Date / Time No Known Allergies Allergy Verified 07/19/21 13:44 Family History Mother Alzheimer disease Hyperlipidemia Father Heart disease Surgical History H/O: hysterectomy History of mastectomy History of tubal ligation Social History household members: spouse housing: house number of children: 2 current occupational status: retired Smoking Status: Never smoker substance use type: does not use Risk Stratification Age >/= 65: Yes SUZIE Risk Stratification Score: 5 SUZIE % Risk: 25% Risk Lab / Micro Data Result Diagrams: 05/19/22 03:05 05/19/22 03:05
--- NOTE | 2022-05-19 10:19 | PN.HOSP_ITS ---
Documented by User: DORETHA Gagnon 05/19/22 10:26 Subjective Subjective Patient seen and examined. Patient lying in bed no distress noted. Patient just underwent echocardiogram. Nicole PATINO for cardiology at bedside. Patient to be taken for cardiac cath later today Objective Data Objective Data Vital Signs: Vital Signs Temp Pulse Resp BP Pulse Ox O2 Del Method O2 Flow Rate 97.9 F 73 18 114/68 98 Nasal Cannula 2 05/19/22 06:35 05/19/22 08:00 05/19/22 06:35 05/19/22 06:35 05/19/22 07:20 05/19/22 07:52 05/19/22 07:52 Oxygen Flow Rate (L/min) 2 Oxygen Delivery Method Nasal Cannula Weight: 124 lb 1.924 oz Body Mass Index (BMI) 24.2 Lab / Micro Data Result Diagrams: 05/19/22 03:05 05/19/22 03:05 Labs: Laboratory Results - last 24 hr 05/18/22 19:50: WBC 5.9, RBC 3.78 L, Hgb 11.5 L, Hct 35.8 L, MCV 94.7, MCH 30.4, MCHC 32.1, RDW Std Deviation 46.0 H, RDW Coeff of Leigh 13.2, Plt Count 329, MPV 9.9, Immature Gran % (Auto) 0.700, Neut % (Auto) 59.7, Lymph % (Auto) 24.1, [place] % (Auto) 11.1 H, Eos % (Auto) 3.4, Baso % (Auto) 1.0, Absolute Neuts (auto) 3.5, Absolute Lymphs (auto) 1.41, Nucleated RBC % 0 05/18/22 19:50: Sodium 139, Potassium 3.7, Chloride 105, Carbon Dioxide 26.0, Anion Gap 8, BUN 36 H, Creatinine 1.27 H, Estim Creat Clear Calc 28.88, Est GFR (MDRD) Af Amer 53 L, Est GFR (MDRD) Non-Af 44 L, BUN/Creatinine Ratio 28.3 H, Glucose 113 H, Calcium 9.6, Troponin I High Sens 5 05/18/22 22:05: Troponin I High Sens 30 05/19/22 00:42: POC Glucose 110 H 05/19/22 01:30: Troponin I High Sens 704 H* 05/19/22 03:05: WBC 6.4, RBC 3.72 L, Hgb 11.2 L, Hct 34.6 L, MCV 93.0, MCH 30.1, MCHC 32.4, RDW Std Deviation 44.7 H, RDW Coeff of Leigh 13.2, Plt Count 318, MPV 9.8, Immature Gran % (Auto) 0.600, Neut % (Auto) 66.7, Lymph % (Auto) 17.0 L, [place] % (Auto) 11.0 H, Eos % (Auto) 3.9, Baso % (Auto) 0.8, Absolute Neuts (auto) 4.2, Absolute Lymphs (auto) 1.08, Nucleated RBC % 0 05/19/22 03:05: Sodium 139, Potassium 3.7, Chloride 108 H, Carbon Dioxide 24.0, Anion Gap 7, BUN 32 H, Creatinine 1.04 H, Estim Creat Clear Calc 33.57, Est GFR (MDRD) Af Amer 66, Est GFR (MDRD) Non-Af 55 L, BUN/Creatinine Ratio 30.8 H, Glucose 106, Calcium 9.2, Triglycerides 189, Cholesterol 140, LDL Cholesterol 67, VLDL Cholesterol 38, HDL Cholesterol 35 L 05/19/22 03:05: PT 12.4, INR 1.0, APTT 28.9 05/19/22 03:05: Triglycerides 179, Cholesterol 138, LDL Cholesterol 66, VLDL Cholesterol 36, HDL Cholesterol 36 L 05/19/22 06:31: POC Glucose 117 H 05/19/22 06:40: Troponin I High Sens 1067 H* Radiography Diagnostic Testing: Radiology Impression Chest X-Ray 05/18/22 20:10 IMPRESSION: There are no acute findings. Electronically Signed: Mick Barrow MD at 20:34 EDT , Rhythm Strip Rhythm Strip: Sinus Rhythm Rate: 77 Ectopy: None Physical Exam Const alert, oriented x3 and no apparent distress HEENT head/scalp atraumatic and moist oral mucous membranes Head and Scalp: normocephalic Eyes conjunctivae normal and no scleral icterus Neck no lymphadenopathy and supple Resp normal respiratory effort and clear to auscultation bilaterally Cardio regular rate, regular rhythm, S1 normal heart sound and S2 normal heart sound GI normal to inspection, nondistended, normoactive bowel sounds, soft to palpation and non-tender Extremity normal to inspection, full ROM and no clubbing, cyanosis or edema Neuro oriented x3, moves all extremities, no focal motor deficits and no sensory deficits noted Psych affect normal Assessment & Plan Assessment/Plan (1) NSTEMI, initial episode of care: PLAN: Plan 1. Non-STEMI -Echocardiogram pending -Cardiology following -Patient to go for cardiac catheterization later today 2. Hypertension -Continue lisinopril -Vital signs per protocol, currently stable 3. Diabetes mellitus type 2 -ACH S blood sugars with sliding scale insulin ordered -Hold metformin 4. Hyperlipidemia -Continue simvastatin -Lipid panel within normal limits with exception of HDL which is 36 DVT prophylaxis-patient was on heparin drip This patient was seen by Danielle Parsons NP-C under the supervision of Dr. Weeks. 13 minutes spent in clinical coordination of patient's plan of care. Documented by User: Dr. Ila Weeks MD 05/19/22 16:51 Objective Data Lab / Micro Data Result Diagrams: 05/19/22 03:05 05/19/22 03:05 Assessment & Plan Assessment/Plan (1) NSTEMI, initial episode of care: Charges/Coding Addendum Addendum: This patient was seen in conjunction with Carl Parsons NP. I have independently interviewed and examined the patient and reviewed pertinent historical, laboratory, and other data. I have reviewed her note and concur with her documentation Patient was seen and examined. She underwent cardiac catheterization that was unremarkable. She had evidence of Takotsubo cardiomyopathy. 2D echo showed EF of 45% with segmental wall motion anteroapically. She denied any chest pain or dizziness. Physical Exam: Gen: Comfortable, not pale, not jaundiced CVS:HS I +II, regular, no murmurs RESP: Diminished at lung bases GI: BS present and normal, soft, nontender, no palpable organs EXT:No edema ASSESSMENT: 1. Acute non-STEMI 2. Hypertension 3. Type II DM 4. Hyperlipidemia Plan: Appreciate cardiology consult Continue on aspirin, statin, Entresto, Coreg Follow-up blood work in am Time spent coordinating all aspects of patient's care, discussing with subspecialty and nursin minutes Visit Charges Inpatient E&M: 62484 Subs Hosp L2
[2022-05-19 10:20] LABS: Partial Thromboplast Time 92.4 Seconds (24.1-36.2)
--- NOTE | 2022-05-19 10:55 | CASEMGMT ---
RN CM Face to Face with patient for initial transition planning/care coordination assessment. RN CM introduced self and role at [facility]. Patient lying in bed, alert and oriented. Patient willing to participate in assessment and is able to answer all questions appropriately. Care providers, pharmacy, and demographics verified. Patient wishes to discharge home, denies need for home health at this time. Patient states he has no further needs or concerns at this time. CM to follow for discharge planning needs that may arise. PCP: Hodan Specialists: Venkat, oncologist Preferred Pharmacy: [facility] retail at discharge Insurance: [employer], [employer] other Prescription Benefit: yes Living Will/HPOA: yes, Krzysztof Rivera LNOK: Living Arrangements: Patient lives with in a single story home with 2 steps to enter. Patient states she is independent at home. Transportation: self, DME/HHC: Patient states she has shower chair, raised toilet, cane, walker, and pulse ox at home. No previous HHC or SNF. Disposition Plan: Patient to discharge home with family support and follow-up plans in place. Gabrielle TEJADA, RN, CM
[2022-05-19] MEDS: Metoprolol Tartrate 25 MG Tablet PO (11:10)
--- NOTE | 2022-05-19 13:29 | PRO.PCM_ITS ---
Procedure Report Date of Procedure: 05/19/22 Moderate sedation 2. Selective left cholangiography 3. Selective right coronary graft 4. Measurement of LVEDP 5. The ventriculogram 6. Placement of Perclose to close the right common femoral artery arteriotomy site Consent; Risk and benefit of procedure explained in detail to the patient she elected to proceed informed consent obtained. Preprocedure diagnosis; 77-year-old patient who presented with symptoms of chest pain and had elevated cardiac enzymes with a clinical diagnosis of non-ST elevation [place] Patient also has abnormal echocardiogram with anteroapical and distal septal hypokinesia. With moderate ejection fraction of around 40%. Patient had other medical problems with history of hypertension, diabetes, hyperlipidemia also patient had a history of breast bilateral cancer and uterine cancer which was treated surgically Access; attempted access from the right radial was not successful Therefore under fluoroscopic guidance we proceed with access from right common femoral artery 6 [place] sheath placed in the right common femoral artery. Diagnostic catheter used; 1. 5 [place] JL 4 2. 5 [place] R4 3. 5 [place] pigtail catheter 4. Selective right common femoral artery angiography and placement of Perclose to close the RCFA arteriotomy site Procedure in detail; Under fluoroscopic guidance we proceed with the 5 [place] JL 4 advanced to the ascending aorta, cannulated the left main without difficulty angiographic view of the left coronary system obtained in ROMANIAN, RIVERA cranial and caudal views Following this the catheter exchanged for 5 [place] JR4 catheter cannulated the right coronary ostium and multiple views of the right coronary system were obtained. Following this we exchanged for 5 [place] angled pigtail catheter and ventriculogram obtained 30 degree RIVERA projection Following this all angiography were study Findings of hemodynamics; 1. LVEDP elevated to 23 mmHg 2. Large area of and to apical hypokinesia Ejection fraction in the range of around 35-40% by left ventriculogram Finding of coronary angiography; 1. Left main coronary artery normal angiographically bifurcating into LAD and left circumflex 2. Left anterior descending artery moderate size vessel does not reach all the way to the apex and angiographically there is normal D1 is moderate size normal angiographically 3. Left circumflex moderate to large size proximal left circumflex had 20% stenosis 4. Right coronary ostium is large/ectasia Dominant RCA with no significant atherosclerosis Conclusion recommendations; This patient had clinical diagnosis of non-ST ovation IA with severe left wall motion abnormality as described with moderate LV systolic function Ejection fraction in the range of 35-40% Coronary arteries had no significant obstructive atherosclerosis Patient has a clinical diagnosis of Takotsubo syndrome 1. Patient will continue on medical treatment with Entresto, carvedilol, dual antiplatelet therapy with Plavix aspirin also will add as needed Aldactone #2 Patient will be monitored in progressive care unit of medical therapy 3. If she remains stable, plan for discharge and to follow-up with Dr. De La Cruz continuation of cardiac care plan 4. Patient will be scheduled for phase 1 cardiac rehab program.
[2022-05-19 14:25] LABS: Bedside Glucose 94 mg/dL (74-106)
[2022-05-19 17:20] LABS: Partial Thromboplast Time 30.3 Seconds (24.1-36.2)
[2022-05-19] MEDS: 0.9% Normal Saline 1,000 ML 100 ML IV (17:34)
[2022-05-19] MEDS: Atorvastatin Calcium 40 MG Tablet PO (20:52)
--- NOTE | 2022-05-19 21:00 | NURSING ---
Pt walked from bed to chair, to bathroom, and around room. No hematoma noted after ambulation. Cath site to rt groin is stable.
[2022-05-19] MEDS: Carvedilol 3.125 MG TABLET PO (21:15)
[2022-05-19 22:35] LABS: Bedside Glucose 86 mg/dL (74-106)
--- NOTE | 2022-05-19 23:13 | PCM.PN.BLA ---
Progress Note Euglycemic with diet. Discontinue blood glucose checks.
[2022-05-20 03:00] VITALS: PULSE 73
[2022-05-20 03:09] VITALS: BP 97/62; PULSE 91; RESP 18; TEMP 36.2; O2SAT 97
[2022-05-20 05:49] LABS: Absolute Lymphocyte Count 0.86 X10^3/uL (0.83-4.51); Absolute Neutrophil Count 3.5 X10^3/uL (2.0-7.7); Basophil# 0.06 X10^3/uL; Basophil% 1.1 % (0-1); Eosinophil# 0.21 X10^3/uL; Eosinophils% 3.9 % (0-5); Hematocrit 33.9 % (37-47); Hemoglobin 11.1 g/dL (12.0-15.0); Lymphocyte # 0.86 X10^3/ul (0.83-4.51); Lymphocyte % 16.1 % (19-41); Mean Corp Hgb Conc 32.7 g/dL (32-36); Mean Corpuscular Hgb 30.8 pg (27.0-32.0); Mean Corpuscular Volume 94.2 fL (81-99); Mean Platelet Vol. 10.2 fl (6.2-12.0); Monocyte# 0.66 X10^3/uL; Monocyte% 12.3 % (0-10); NRBC Flagged by Analyzer 0 % (0-5); Neutrophil # 3.53 X10^3/uL (2.7-7.7); Platelet Count 274 K/mm3 (150-450); RBC Distribution Width CV 13.2 % (11.6-14.6); RBC Distribution Width SD 45.5 fl (35.1-43.9); White Blood Count 5.4 K/mm3 (4.4-11.0)
[2022-05-20 06:06] LABS: AST(SGOT) 24 U/L (15-37); Alanine Aminotransfer ALT/SGPT 28 U/L (13-56); Albumin, Serum 3.1 g/dL (3.2-5.0); Alkaline Phosphatase 54 U/L (45-117); Anion Gap 6 (5-15); BUN 24 mg/dL (7-18); BUN/Creat Ratio 26.6 RATIO (10-20); Calcium,Total 8.8 mg/dL (8.5-10.1); Chloride 108 mmol/L (98-107); EST Glomerular Filtration Rate 65 mL/min (>60); Est Glom Filt Rate - Afr Amer 78 mL/min (>60); Estimated Creatinine Clearance 38.79 ml/min; Globulin 3.2 g/dL (2.2-4.2); Glucose 111 mg/dL (74-106); Potassium 3.7 mmol/L (3.5-5.1); Protein, Total 6.3 g/dL (6.4-8.2); Sodium Level 138 mmol/L (136-145)
[2022-05-20 07:02] VITALS: PULSE 73
[2022-05-20 07:30] VITALS: O2SAT 93
[2022-05-20 09:00] VITALS: BP 102/61; PULSE 88; RESP 20; TEMP 36.3; O2SAT 100
[2022-05-20] MEDS: Aspirin E.C. 81 MG Tablet PO (10:39)
[2022-05-20] MEDS: Carvedilol 3.125 MG TABLET PO (10:39)
--- NOTE | 2022-05-20 12:57 | DCINST_ITS ---
Discharge Instructions Diet Discharge Diet: Low fat / Low cholesterol and 2000 Calorie Control Diet Dressing / Incision Call your doctor if your incision/area has: Continuous Slow Oozing, Sudden Increased Bleeding, Increased Pain/ Swelling, Increased Redness, Foul Smelling Discharge and Swelling at the incision site Call your doctor if you observe: Shortness of breath, Swelling in the ankles, Chest pain and Increased palpitations (irregular heartbeat) Follow Up Care Test Results: Test results from this visit will be discussed in further detail at your follow- up appointment, if applicable. Discharge Plan Admission Admit Date/Time: 05/19/22 08:12 Primary Reason for Your Visit: Chest Pain Attending Provider: Ila Weeks Primary Care Provider: Mike Pettit Consulting Providers: Angi Huff ; Edson Hazel Discharge Orders/Prescriptions Prescriptions: New aspirin 81 mg Tablet,Delayed Release (Dr/Ec) 81 mg PO BREAKFAST Qty: 0 0RF carvedilol 3.125 mg Tablet 3.125 mg PO BID 30 Days Qty: 60 0RF Entresto 24-26 mg Tablet 1 tab PO BID 30 Days Qty: 60 0RF spironolactone 25 mg tablet 25 mg PO DAILY Qty: 30 0RF Continued metformin 500 MG tablet 500 mg PO 0800 Label Comments: diabetic medication aspirin 81 MG tablet,delayed release (DR/EC) 81 mg PO DAILY Label Comments: heart health/blood thinner simvastatin 10 MG tablet 10 mg PO QHS Label Comments: TAKE 1 TABLET BY MOUTH EVERY DAY acetaminophen 325 MG tablet 650 mg PO Q6H PRN PRN (Reason: Non-cardiac pain (mod-severe)) 0RF pantoprazole 40 mg tablet,delayed release (DR/EC) 40 mg PO DAILY PRN PRN (Reason: heart burn) No Action lisinopril 2.5 MG tablet 10 mg PO DAILY Label Comments: blood pressure med Referrals / Follow Up: Mike Pettit MD [Primary Care Provider] - Nicole Anotny PA [PHYSICIAN FIRE PROTECTION DESIGNER] - 06/12/22 9:30 am Disposition Disposition (needs filled in before D/C Order can be placed): Home, Self Care
--- NOTE | 2022-05-20 13:01 | DS.PCM_ITS ---
Documented by User: DORETHA Gagnon 05/20/22 13:06 Providers Date of Admission: 05/19/22 Date of Discharge: 05/20/22 Primary Care Physician: Dr. Mike Pettit MD Consultations 05/19/22 02:34 Consult: Cardiology Routine Consulting Provider: Agni Huff Reason for Consult: nstemi EMERGENT Consult: No MD Notified: Yes Date Notified: 05/19/22 Time Notified: 06:48 Method of Notification: Verbal Reason For Visit: CHEST PAIN Diagnosis Discharge Diagnosis (1) NSTEMI, initial episode of care: Status: Acute Code(s): I21.4 - Non-ST elevation (NSTEMI) myocardial infarction (2) Hypertension: Status: Chronic Code(s): I10 - Essential (primary) hypertension Qualifiers: Hypertension type: essential hypertension Qualified Code(s): I10 - Essential (primary) hypertension (3) Hyperlipidemia: Status: Chronic Code(s): E78.5 - Hyperlipidemia, unspecified Qualifiers: Hyperlipidemia type: unspecified Qualified Code(s): E78.5 - Hyperlipidemia, unspecified Plan 1. Non-STEMI -Echocardiogram pending -Cardiology following -Patient to go for cardiac catheterization later today 2. Hypertension -Continue lisinopril -Vital signs per protocol, currently stable 3. Diabetes mellitus type 2 -ACH S blood sugars with sliding scale insulin ordered -Hold metformin 4. Hyperlipidemia -Continue simvastatin -Lipid panel within normal limits with exception of HDL which is 36 DVT prophylaxis-patient was on heparin drip This patient was seen by DORETHA Gagnon under the supervision of Dr. Weeks. 13 minutes spent in clinical coordination of patient's plan of care. Medications at Discharge Home Medications aspirin 81 mg tablet,delayed release 81 mg PO DAILY heart health 08/07/14 lisinopril 2.5 mg tablet 10 mg PO DAILY blood pressure 08/07/14 metformin 500 mg tablet 500 mg PO 0800 diabetes 08/07/14 simvastatin 10 mg tablet 10 mg PO QHS cholesterol 07/09/19 acetaminophen 325 mg tablet 650 mg PO Q6H PRN PRN Non-cardiac pain (mod-severe) 07/12/19 pantoprazole 40 mg tablet,delayed release 40 mg PO DAILY PRN PRN heart burn 05/19/22 aspirin 81 mg tablet,delayed release 81 mg PO BREAKFAST #0 tabs 05/20/22 carvedilol 3.125 mg tablet 3.125 mg PO BID 30 days #60 tabs 05/20/22 sacubitril 24 mg-valsartan 26 mg tablet (Entresto) 1 tab PO BID 30 days #60 tabs 05/20/22 spironolactone 25 mg tablet 25 mg PO DAILY #30 tabs 05/20/22 Hospital Course Operations None Procedures 2-D Echocardiogram and Cardiac catheterization Summary of Care Provided Minutes Spent on Discharge: 35 Hospital Course: Patient is a 77-year-old female who initially presented with chest pain. Patient underwent echocardiogram which demonstrated an EF of 40 to 45%. Patient then underwent cardiac catheterization as patient's troponins continued to trend up. Patient was found to have Takotsubo's cardiomyopathy. Patient will be discharged home with Aldactone 25 mg daily in addition to her home medications. Patient was also started on Entresto during her admission will be continued. Patient should follow-up with cardiology outpatient for continued evaluation. Cardiology recommending Plavix however patient has a history of upper GI bleed and subsequently patient was not started on Plavix at this admission. Physical Exam Const alert, oriented x3 and no apparent distress HEENT head/scalp atraumatic and moist oral mucous membranes Eyes conjunctivae normal and no scleral icterus Neck no lymphadenopathy and supple Resp normal respiratory effort and clear to auscultation bilaterally Cardio regular rate, regular rhythm, S1 normal heart sound and S2 normal heart sound GI normal to inspection, nondistended, normoactive bowel sounds, soft to palpation and non-tender Extremity normal to inspection, full ROM and no clubbing, cyanosis or edema Neuro oriented x3, moves all extremities, no focal motor deficits and no sensory deficits noted Psych affect normal Weight / BMI Weight Weight: 124 lb 1.924 oz Body Mass Index (BMI) 24.2 ABG / Lab / Microbiology Data Result Diagrams: 05/20/22 05:10 05/20/22 05:10 Laboratory: Laboratory Results - last 24 hr 05/19/22 14:06: POC Glucose 94 05/19/22 16:35: APTT 30.3 05/19/22 22:11: POC Glucose 86 05/20/22 05:10: WBC 5.4, RBC 3.60 L, Hgb 11.1 L, Hct 33.9 L, MCV 94.2, MCH 30.8, MCHC 32.7, RDW Std Deviation 45.5 H, RDW Coeff of Leigh 13.2, Plt Count 274, MPV 10.2, Immature Gran % (Auto) 0.600, Neut % (Auto) 66.0, Lymph % (Auto) 16.1 L, [place] % (Auto) 12.3 H, Eos % (Auto) 3.9, Baso % (Auto) 1.1 H, Absolute Neuts (auto) 3.5, Absolute Lymphs (auto) 0.86, Nucleated RBC % 0 05/20/22 05:10: Sodium 138, Potassium 3.7, Chloride 108 H, Carbon Dioxide 24.0, Anion Gap 6, BUN 24 H, Creatinine 0.90, Estim Creat Clear Calc 38.79, Est GFR (MDRD) Af Amer 78, Est GFR (MDRD) Non-Af 65, BUN/Creatinine Ratio 26.6 H, Glucose 111 H, Calcium 8.8, Total Bilirubin 0.10 L, AST 24, ALT 28, Alkaline Phosphatase 54, Total Protein 6.3 L, Albumin 3.1 L, Globulin 3.2, Albumin/Globulin Ratio 1.0 D/C Instructions Discharge Diet: Low fat / Low cholesterol and 2000 Calorie Control Diet Call your doctor if your incision/area has: Continuous Slow Oozing, Sudden Increased Bleeding, Increased Pain/ Swelling, Increased Redness, Foul Smelling Discharge and Swelling at the incision site Call your doctor if you observe: Shortness of breath, Swelling in the ankles, Chest pain and Increased palpitations (irregular heartbeat) Meaningful Use Info Meaningful Use Diagnoses (Choose all that apply): None applicable Discharge Plan Admission Admit Date/Time: 05/19/22 08:12 Primary Reason for Your Visit: Chest Pain Attending Provider: Ila Weeks Primary Care Provider: Mike Pettit Consulting Providers: Angi Huff ; Edson Hazel Discharge Orders/Prescriptions Prescriptions: New aspirin 81 mg Tablet,Delayed Release (Dr/Ec) 81 mg PO BREAKFAST Qty: 0 0RF carvedilol 3.125 mg Tablet 3.125 mg PO BID 30 Days Qty: 60 0RF Entresto 24-26 mg Tablet 1 tab PO BID 30 Days Qty: 60 0RF spironolactone 25 mg tablet 25 mg PO DAILY Qty: 30 0RF Continued metformin 500 MG tablet 500 mg PO 0800 Label Comments: diabetic medication aspirin 81 MG tablet,delayed release (DR/EC) 81 mg PO DAILY Label Comments: heart health/blood thinner simvastatin 10 MG tablet 10 mg PO QHS Label Comments: TAKE 1 TABLET BY MOUTH EVERY DAY acetaminophen 325 MG tablet 650 mg PO Q6H PRN PRN (Reason: Non-cardiac pain (mod-severe)) 0RF pantoprazole 40 mg tablet,delayed release (DR/EC) 40 mg PO DAILY PRN PRN (Reason: heart burn) No Action lisinopril 2.5 MG tablet 10 mg PO DAILY Label Comments: blood pressure med Referrals / Follow Up: Mike Pettit MD [Primary Care Provider] - Nicole Antony PA [PHYSICIAN EVENT MARKETING SPECIALIST] - 06/12/22 9:30 am Disposition Disposition (needs filled in before D/C Order can be placed): Home, Self Care Documented by User: Dr. Ila Weeks MD 05/20/22 16:02 Providers Date of Admission: 05/19/22 Reason For Visit: CHEST PAIN Diagnosis Discharge Diagnosis (1) NSTEMI, initial episode of care: Status: Acute Code(s): I21.4 - Non-ST elevation (NSTEMI) myocardial infarction (2) Hypertension: Status: Chronic Code(s): I10 - Essential (primary) hypertension Qualifiers: Hypertension type: essential hypertension Qualified Code(s): I10 - Essential (primary) hypertension (3) Hyperlipidemia: Status: Chronic Code(s): E78.5 - Hyperlipidemia, unspecified Qualifiers: Hyperlipidemia type: unspecified Qualified Code(s): E78.5 - Hyperlipidemia, unspecified Medications at Discharge Home Medications aspirin 81 mg tablet,delayed release 81 mg PO DAILY heart health 08/07/14 lisinopril 2.5 mg tablet 10 mg PO DAILY blood pressure 08/07/14 metformin 500 mg tablet 500 mg PO 0800 diabetes 08/07/14 simvastatin 10 mg tablet 10 mg PO QHS cholesterol 07/09/19 acetaminophen 325 mg tablet 650 mg PO Q6H PRN PRN Non-cardiac pain (mod-severe) 07/12/19 pantoprazole 40 mg tablet,delayed release 40 mg PO DAILY PRN PRN heart burn 05/19/22 aspirin 81 mg tablet,delayed release 81 mg PO BREAKFAST #0 tabs 05/20/22 carvedilol 3.125 mg tablet 3.125 mg PO BID 30 days #60 tabs 05/20/22 sacubitril 24 mg-valsartan 26 mg tablet (Entresto) 1 tab PO BID 30 days #60 tabs 05/20/22 spironolactone 25 mg tablet 25 mg PO DAILY #30 tabs 05/20/22 ABG / Lab / Microbiology Data Result Diagrams: 05/20/22 05:10 05/20/22 05:10 Discharge Plan Admission Admit Date/Time: 05/19/22 08:12 Primary Reason for Your Visit: Chest Pain Attending Provider: Ila Weeks Primary Care Provider: Mike Pettit Consulting Providers: Angi Huff ; Edson Hazel Discharge Orders/Prescriptions Prescriptions: New aspirin 81 mg Tablet,Delayed Release (Dr/Ec) 81 mg PO BREAKFAST Qty: 0 0RF carvedilol 3.125 mg Tablet 3.125 mg PO BID 30 Days Qty: 60 0RF Entresto 24-26 mg Tablet 1 tab PO BID 30 Days Qty: 60 0RF spironolactone 25 mg tablet 25 mg PO DAILY Qty: 30 0RF Continued metformin 500 MG tablet 500 mg PO 0800 Label Comments: diabetic medication aspirin 81 MG tablet,delayed release (DR/EC) 81 mg PO DAILY Label Comments: [facility]/blood thinner simvastatin 10 MG tablet 10 mg PO QHS Label Comments: TAKE 1 TABLET BY MOUTH EVERY DAY acetaminophen 325 MG tablet 650 mg PO Q6H PRN PRN (Reason: Non-cardiac pain (mod-severe)) 0RF pantoprazole 40 mg tablet,delayed release (DR/EC) 40 mg PO DAILY PRN PRN (Reason: heart burn) No Action lisinopril 2.5 MG tablet 10 mg PO DAILY Label Comments: blood pressure med Referrals / Follow Up: Mike Pettit MD [Primary Care Provider] - Nicole Antony PA [PHYSICIAN EVENT MARKETING SPECIALIST] - 06/12/22 9:30 am Disposition Disposition (needs filled in before D/C Order can be placed): Home, Self Care Charges/Coding Addendum Addendum: This patient was seen in conjunction with Carl Parsons NP.? I have independently interviewed and examined the patient and reviewed pertinent historical, laboratory, and other data. I have reviewed her note and concur with her documentation 77-year-old male past medical history of type II DM, hypertension, per lipidemia, history of breast and uterine CA status post bilateral mastectomy and complete hysterectomy who presented with substernal chest pain that started at rest and radiated in between her shoulder blades. No associated nausea diaphoresis or shortness of breath. Patient's initial troponin was 5 and went up to 30 and then 704 and then 1067. EKG showed no acute ST changes. Cardiology was consulted. She underwent cardiac catheterization that was unremarkable.? She had evidence of Takotsubo cardiomyopathy.? 2D echo showed EF of 45% with segmental wall motion anteroapically.? Patient was continued on aspirin, statin, Entresto, Coreg. Patient will follow up with her primary care doctor within 1 week and follow-up with cardiology within 1 month. On the day of discharge, patient was seen and examined. Denied any complaint. Physical Exam: Gen: Comfortable, not pale, not jaundiced CVS:HS I +II, regular, no murmurs RESP: Diminished at lung bases GI: BS present and normal, soft, nontender, no palpable organs EXT:No edema Visit Charges Inpatient E&M: 44859 Disch Hosp
--- NOTE | 2022-05-20 14:25 | PCM.PN.CARD ---
Subjective Subjective Seen and evaluated bedside No symptoms reported today and no event from last time No chest pain no dizziness reported Objective Data Vital Signs: Vital Signs Temp Pulse Resp BP Pulse Ox O2 Del Method O2 Flow Rate 97.4 F L 88 20 H 102/61 100 Room Air 2 05/20/22 09:00 05/20/22 09:00 05/20/22 09:00 05/20/22 09:00 05/20/22 09:00 05/20/22 09:00 05/19/22 07:52 Oxygen Flow Rate (L/min) 2 Oxygen Delivery Method Room Air Weight: 124 lb 1.924 oz Body Mass Index (BMI) 24.2 Intake & Output: Intake and Output for Last 24 Hours 05/18/22 05/19/22 05/20/22 23:59 23:59 23:59 Intake Total 672.73 / 2172.73 1500 / 1500 Balance 672.73 / 2172.73 1500 / 1500 Lab / Micro Data Result Diagrams: 05/20/22 05:10 05/20/22 05:10 Labs: Laboratory Results - last 24 hr 05/19/22 14:06: POC Glucose 94 05/19/22 16:35: APTT 30.3 05/19/22 22:11: POC Glucose 86 05/20/22 05:10: WBC 5.4, RBC 3.60 L, Hgb 11.1 L, Hct 33.9 L, MCV 94.2, MCH 30.8, MCHC 32.7, RDW Std Deviation 45.5 H, RDW Coeff of Leigh 13.2, Plt Count 274, MPV 10.2, Immature Gran % (Auto) 0.600, Neut % (Auto) 66.0, Lymph % (Auto) 16.1 L, [place] % (Auto) 12.3 H, Eos % (Auto) 3.9, Baso % (Auto) 1.1 H, Absolute Neuts (auto) 3.5, Absolute Lymphs (auto) 0.86, Nucleated RBC % 0 05/20/22 05:10: Sodium 138, Potassium 3.7, Chloride 108 H, Carbon Dioxide 24.0, Anion Gap 6, BUN 24 H, Creatinine 0.90, Estim Creat Clear Calc 38.79, Est GFR (MDRD) Af Amer 78, Est GFR (MDRD) Non-Af 65, BUN/Creatinine Ratio 26.6 H, Glucose 111 H, Calcium 8.8, Total Bilirubin 0.10 L, AST 24, ALT 28, Alkaline Phosphatase 54, Total Protein 6.3 L, Albumin 3.1 L, Globulin 3.2, Albumin/Globulin Ratio 1.0 Rhythm Strip Rhythm Strip: Sinus Rhythm Rate: 77 Ectopy: None Cardiology Labs/Tests 05/19/22 16:35: APTT 30.3 05/20/22 05:10: WBC 5.4, RBC 3.60 L, Hgb 11.1 L, Hct 33.9 L, MCV 94.2, MCH 30.8, MCHC 32.7, Plt Count 274, MPV 10.2, Immature Gran % (Auto) 0.600, Neut % (Auto) 66.0, Lymph % (Auto) 16.1 L, [place] % (Auto) 12.3 H, Eos % (Auto) 3.9, Baso % (Auto) 1.1 H, Absolute Neuts (auto) 3.5, Nucleated RBC % 0 05/20/22 05:10: Sodium 138, Potassium 3.7, Chloride 108 H, Carbon Dioxide 24.0, Anion Gap 6, BUN 24 H, Creatinine 0.90, Est GFR (MDRD) Af Amer 78, Est GFR (MDRD) Non-Af 65, BUN/Creatinine Ratio 26.6 H, Glucose 111 H, Calcium 8.8, Total Bilirubin 0.10 L Rhythm: EKG: ECHO: Stress Test: Cardiac Cath: PCI: CT Surgery: Holter monitor: EPS: PPM: CXR: Chest CT Scan: Physical Exam Narrative Patient seen and examined at bedside today executive vice president showed underlying normal sinus rhythm Cardiac exam S1-S2 regular Chest exam is clear to auscultation bilateral. Diminished lower extremity no clubbing no cyanosis no lower extremity edema noted. 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 Subsequently she was evaluated with echocardiogram and cardiac catheterization She has a normal coronary arteries, and moderate LV systolic dysfunction With ejection fraction in the range of 40%, with anteroapical hypokinesia Cardiac care plan recommendation 1. This patient has multiple risk factor for CAD with diabetes, hypertension, hyperlipidemia As well has malignant neoplasm of bilateral breast treated with bilateral mastectomy and history of malignant neoplasm of the endometrium and had hysterectomy In this admission she has a clear evidence of Takotsubo syndrome based on the cardiac catheterization and echocardiogram 2. Patient's current medication has been reviewed and patient is started on beta-grisel carvedilol, Entresto, aspirin, Plavix. Aldactone, atorvastatin 3. Patient will follow up at cardiac clinic at [facility] for continuation of cardiac care. She remained stable clinically with no further episode of chest pain and she tolerated her current medication very well.
== END 2022-05-20 14:59 | disposition home or self-care (01) | DRG 282 ==
LOC: ED 23:18 → PCU 23:28
PROVIDERS: Nurse Practitioner Family; Admitting Provider Hospitalist; Emergency Provider Emergency Medicine; PCP Family Medicine; Visit Provider Internal Medicine
DX: I51.81 Takotsubo syndrome (principal); I21.A1 Myocardial infarction type 2; E11.9 Type 2 diabetes mellitus without complications; E78.5 Hyperlipidemia, unspecified; I10 Essential (primary) hypertension; E78.00 Pure hypercholesterolemia, unspecified; Z85.3 Personal history of malignant neoplasm of breast; Z85.42 Personal history of malignant neoplasm of other parts of uterus; Z79.82 Long term (current) use of aspirin; Z79.84 Long term (current) use of oral hypoglycemic drugs; Z79.899 Other long term (current) drug therapy; E66.9 Obesity, unspecified; Z90.710 Acquired absence of both cervix and uterus; Z90.13 Acquired absence of bilateral breasts and nipples; Z68.24 Body mass index [BMI] 24.0-24.9, adult
CPT/HCPCS: 36415; 71045; 80048; 80053; 80061; 82962; 84484; 85025; 85610; 85730; 93005; 93306; 93458; 99152; 99153; 99285; J7030; A4216; C1760; C1769; C1894

== ENCOUNTER → 2022-07-05 | Outpatient (CLI) | payer MEDICARE, OTHER, SELFPAY ==
[2022-07-05 12:31] LABS: Anion Gap 5 (5-15); BUN 23 mg/dL (7-18); BUN/Creat Ratio 20.9 RATIO (10-20); Calcium,Total 9.3 mg/dL (8.5-10.1); Chloride 109 mmol/L (98-107); Cholesterol 126 mg/dL (200); EST Glomerular Filtration Rate 51 mL/min (>60); Est Glom Filt Rate - Afr Amer 62 mL/min (>60); Glucose 99 mg/dL (74-106); High Density Lipoprotein 48 mg/dL; Sodium Level 142 mmol/L (136-145); Triglycerides 155 mg/dL; Very Low Density Lipoprotein 31 mg/dL (5-40)
== END | disposition home or self-care (01) ==
LOC: MFPLAB 10:07
PROVIDERS: PCP Family Medicine; Referring Provider Family Medicine; Visit Provider Family Medicine
DX: I10 Essential (primary) hypertension (principal)
CPT/HCPCS: 36415; 80048; 80061

== ENCOUNTER → 2022-09-05 | Outpatient (CLI) | payer MEDICARE, OTHER, SELFPAY ==
--- NOTE | 2022-09-05 12:35 | ECHOD_ITS ---
Reason For Study: takotsubo Procedure This was a 2D Doppler, Color Flow transthoracic echocardiogram. The exam was of adequate technical quality. Exam performed in department. Left Ventricle Normal LV size. Left ventricular systolic function is normal. The estimated ejection fraction is 55 %. Diastolic function is indeterminate. No regional wall motion abnormalities noted. Right Ventricle Normal RV size. Normal systolic function. Atria Normal left atrium. Normal right atrium. No doppler evidence for ASD. Mitral Valve There is mild mitral annular calcification. Extension of the mitral annular calcification onto the base of the posterior mitral valve leaflet. Trivial mitral valve insufficiency. Tricuspid Valve Normal tricuspid valve. Trivial tricuspid valve insufficiency. Unable to estimate RV systolic pressure due to insufficient tricuspid regurgitant envelope. Aortic Valve Trisinus/trileaflet aortic valve. Normal aortic valve. Trivial aortic valve insufficiency. Pulmonic Valve The pulmonic valve is not well visualized. Trivial pulmonic valve insufficiency. Great Vessels Normal sized aortic root. Pericardium/Pleural No pericardial effusion. MMode/2D Measurements & Calculations RVDd: 3.0 cm Ao root diam: 3.6 cm LAV(MOD-sp4): 45.4 ml LVAd ap4: 25.7 cm2 SV(MOD-sp4): 36.5 ml SV(sp4-el): 40.2 ml LVLd ap4: 7.5 cm EDV(MOD-sp4): 72.3 ml EDV(sp4-el): 74.9 ml LVAs ap4: 16.9 cm2 LVLs ap4: 7.0 cm ESV(MOD-sp4): 35.8 ml ESV(sp4-el): 34.6 ml EF(MOD-sp4): 50.5 % EF(sp4-el): 53.7 % LA A4 area: 16.8 cm2 RA A4 area: 8.7 cm2 Time Measurements MV dec time: 0.22 sec Doppler Measurements & Calculations MV E max tristen: 74.1 cm/sec Lat Peak E' Tristen: 9.5 cm/sec Med Peak E' Tristen: 5.3 cm/sec MV A max tristen: 60.2 cm/sec E/E' lat: 7.8 E/E' med: 13.9 MV E/A: 1.2 MV V2 max: 67.9 cm/sec Ao V2 max: 92.7 cm/sec MV max P.8 mmHg MV dec slope: 330.5 cm/sec2 Ao max P.4 mmHg MV V2 mean: 39.6 cm/sec Ao V2 mean: 63.9 cm/sec MV mean P.71 mmHg Ao mean P.9 mmHg MV V2 VTI: 23.2 cm Ao V2 VTI: 26.7 cm LV V1 max: 84.5 cm/sec PA V2 max: 88.2 cm/sec LV V1 max P.9 mmHg PA V2 mean: 64.4 cm/sec LV V1 mean P.4 mmHg LV V1 mean: 54.6 cm/sec LV V1 VTI: 25.3 cm ECHO/Echo Complete Interpretation Summary Left ventricular systolic function is normal. The estimated ejection fraction is 55 %. There is mild mitral annular calcification. Extension of the mitral annular calcification onto the base of the posterior mi tral valve leaflet. Trivial mitral valve insufficiency. Trivial tricuspid valve insufficiency. Trivial aortic valve insufficiency. Trivial pulmonic valve insufficiency. Unable to estimate RV systolic pressure due to insufficient tricuspid regurgita nt envelope. Diastolic function is indeterminate. Ordering Physician: Nicole Antony Referring Physician: Nicole Antony Performed By: Carla Mendoza RCS
== END | disposition home or self-care (01) ==
LOC: CVS 12:35
PROVIDERS: PCP Family Medicine; Referring Provider Physician Assistant Medical; Visit Provider Physician Assistant Medical
DX: I51.81 Takotsubo syndrome (principal)
CPT/HCPCS: 93306

== ENCOUNTER → 2023-01-10 | Outpatient (CLI) | payer MEDICARE, OTHER, SELFPAY ==
--- NOTE | 2023-01-10 11:20 | RAD_ITS ---
STUDY: X-RAY CHEST REASON FOR EXAM: Female, 77 years old. History of breast cancer. TECHNIQUE: Frontal and lateral views of the chest. COMPARISON: May 2022. FINDINGS: Stable right internal jugular catheter with tip projected over the lower SVC. Elevation of the right hemidiaphragm unchanged. There is no demonstrated pleural abnormality. Normal size heart. Normal mediastinum and jignesh. Normal visualized pulmonary arteries. Normal visualized aortic arch and descending thoracic aorta. Diffuse moderate thoracolumbar spondylosis. Normal visualized ribs, clavicles, and shoulders. Clips projected over the right upper abdomen unaltered. Left axillary clips unchanged. There is no demonstrated abnormality of the visualized soft tissue structures of the upper abdomen. RAD/Chest PA and Lateral IMPRESSION: Stable chest with no acute superimposed findings since the prior study. Electronically Signed: Shahram Ceballos, at 12:36 EST ,
== END | disposition home or self-care (01) ==
LOC: RAD 11:04
PROVIDERS: PCP Family Medicine; Visit Provider Internal Medicine Medical Oncology
DX: Z85.3 Personal history of malignant neoplasm of breast (principal)
CPT/HCPCS: 71046

== ENCOUNTER → 2023-03-07 | Outpatient (CLI) | payer MEDICARE, OTHER, SELFPAY ==
--- NOTE | 2023-03-07 08:04 | MRI_ITS ---
INDICATION: ASYMMETRIC HEARING LOSS LEFT EAR EXAMINATION: MRI - MR Attn IACs and/or Temporal Bones WO/W Contrast TECHNIQUE: Multiplanar and multisequence MR images of the brain were obtained with gadolinium. IV Contrast Dosage and Agent: None. COMPARISON: None. FINDINGS: BRAIN PARENCHYMA: Mild cortical and central atrophy. No MRI evidence of hemorrhage. No evidence of acute infarct. No intracranial mass or mass effect. There is preservation of the ch/white matter interface. Normal sella turcica, pituitary gland, infundibular stalk, optic chiasm and hypothalamus. The internal auditory canals are patent. Mild inferior right mastoid air cell disease. Posterior fossa structures are unremarkable. CSF SPACES: Posterior fossa arachnoid cyst versus prominent cisterna magna 2.1 cm AP by 4 cm craniocaudal by 2.6 cm transverse. VASCULAR SYSTEM: Normal flow voids in the major intracranial circulation. CALVARIUM, SKULL BASE, PARANASAL SINUSES AND MASTOID AIR CELLS: Clear. No expansile changes. ORBITS: Both globes, extraocular muscles, optic nerves and retrobulbar fat appear unremarkable. MRI/Brain W/WO Contrast IMPRESSION: IACs normal pre and postcontrast. Mild right mastoid air cell disease. Mild cortical and central atrophy. Posterior fossa arachnoid cyst versus prominent cisterna magna. Electronically Signed: Srikanth Chery MD, CHRISTIANNE at 23:17 EDT ,
[2023-03-07 08:50] LABS: CREATININE FINGERSTICK 1.3 mg/dL (0.55-1.02)
== END | disposition home or self-care (01) ==
LOC: MRI 07:51
PROVIDERS: PCP Family Medicine; Referring Provider Otolaryngology; Visit Provider Otolaryngology
DX: H90.3 Sensorineural hearing loss, bilateral (principal)
CPT/HCPCS: 70553; A9575

== ENCOUNTER 2023-03-28 14:17 | Emergency (ER) | payer MEDICARE, OTHER, SELFPAY ==
[2023-03-28 14:18] VITALS: BP 116/68; PULSE 74; RESP 16; TEMP 36.6; O2SAT 100; BMI 24.3
--- NOTE | 2023-03-28 14:25 | EKG12_ITS ---
Test Reason : CP Blood Pressure : / mmHG Vent. Rate : 064 BPM Atrial Rate : 064 BPM P-R Int : 182 ms QRS Dur : 110 ms QT Int : 430 ms P-R-T Axes : 041 -34 032 degrees QTc Int : 443 ms Sinus rhythm with Premature supraventricular complexes Left axis deviation Septal infarct , age undetermined Abnormal ECG Confirmed by YASMANY MARIN, NENA ([id number]), general expeditor VELIA GILLIAM ([id number]) on 03/30/2023 9:30:59 AM Referred By: JOHN Confirmed By:NENA JADE MD
--- NOTE | 2023-03-28 14:50 | RAD_ITS ---
STUDY: X-RAY CHEST REASON FOR EXAM: Female, 78 years old. 2 day history of chest pain. History of breast carcinoma. TECHNIQUE: Single AP portable view of the chest. COMPARISON: Comparison is made with prior examination January 10, 2023. FINDINGS: A right-sided remington catheter seen with the tip in the right atrium. Clips are once again seen in the left axillary region. Stable elevation of the right hemidiaphragm. There is no demonstrated pleural abnormality. Normal size heart. Normal mediastinum and jignesh. Normal visualized pulmonary arteries. There is atherosclerotic tortuosity of the aortic arch and descending thoracic aorta. There are diffuse degenerative changes of the visualized thoracic spine. Normal visualized ribs, clavicles, and shoulders. There is no demonstrated abnormality of the visualized soft tissue structures of the upper abdomen. RAD/Chest 1 View (Portable) IMPRESSION: Stable examination. No acute abnormality is seen. Electronically Signed: Cleve Loaiza MD at 15:07 EDT ,
[2023-03-28 14:55] LABS: Absolute Lymphocyte Count 0.95 X10^3/uL (0.83-4.51); Absolute Neutrophil Count 5.5 X10^3/uL (2.0-7.7); Basophil# 0.06 X10^3/uL; Basophil% 0.7 % (0-1); Eosinophil# 0.73 X10^3/uL; Eosinophils% 8.9 % (0-5); Hematocrit 31.9 % (37-47); Hemoglobin 10.3 g/dL (12.0-15.0); Lymphocyte # 0.95 X10^3/ul (0.83-4.51); Lymphocyte % 11.6 % (19-41); Mean Corp Hgb Conc 32.3 g/dL (32-36); Mean Corpuscular Hgb 30.2 pg (27.0-32.0); Mean Corpuscular Volume 93.5 fL (81-99); Mean Platelet Vol. 10.1 fl (6.2-12.0); Monocyte# 0.84 X10^3/uL; Monocyte% 10.3 % (0-10); NRBC Flagged by Analyzer 0 % (0-5); Neutrophil # 5.51 X10^3/uL (2.7-7.7); Neutrophil % 67.6 % (47-70); Platelet Count 288 K/mm3 (150-450); RBC Distribution Width SD 44.5 fl (35.1-43.9); Red Blood Count 3.41 M/mm3 (4.2-5.4); White Blood Count 8.2 K/mm3 (4.4-11.0)
--- NOTE | 2023-03-28 14:58 | ED.VIS.CHEST ---
HPI History of Present Illness Chief Complaint: Chest Pain Narrative Narrative: 78-year-old female with history of Takotsubo cardiomyopathy, diabetes, hyperlipidemia, hypertension presenting with chest pain. She describes it as a pressure. She states that she is had this on and off for the last 2 days. She feels a little bit short of breath with exertion as well. She states that her chest pain does not get worse when she ambulates. She states that she previously had breast cancer and had mastectomy. She states that at times she does get chest pain associated with her chest wall. This feels a little bit different. She has had constant pain since 6 AM this morning when she woke up. Her shortness of breath is worse. Denies fevers, chills. Denies nausea, vomiting. Is eating and drinking normally. She making normal urine and stool. She denies abdominal pain, diarrhea, constipation. Patient denies history of DVT/PE, recent surgery or immobilization, recent long distance travel. Patient does have history of endometrial and breast cancer in the past. [facility] Medical History (Updated 01/15/23 @ 11:[address] Edson Robledo MD) Ankle fracture, right Breast cancer Diabetes Endometrial cancer Hypertension Hypokalemia Nasal fracture NSTEMI, initial episode of care Takotsubo cardiomyopathy Ulcer Home Medications aspirin 81 mg tablet,delayed release 81 mg PO DAILY heart health 08/07/14 [History Last Taken 07/09/19] metformin 500 mg tablet 500 mg PO 0800 diabetes 08/07/14 [History Last Taken 07/09/19] simvastatin 10 mg tablet 10 mg PO QHS cholesterol 07/09/19 [History Last Taken 07/08/19] acetaminophen 325 mg tablet 650 mg PO Q6H PRN PRN Non-cardiac pain (mod-severe) 07/12/19 [Rx Last Taken Unknown] pantoprazole 40 mg tablet,delayed release 40 mg PO DAILY PRN PRN heart burn 05/19/22 [History Last Taken Unknown] carvedilol 6.25 mg tablet 6.25 mg PO BID #60 tabs 09/28/22 [Rx Last Taken Unknown] lisinopril 10 mg tablet 10 mg PO BID #180 tabs 01/10/23 [Rx Last Taken Unknown] Allergy/AdvReac Type Severity Reaction Status Date / Time Sulfa (Sulfonamide Allergy PT UNSURE Verified 03/28/23 14:20 Antibiotics) OF REACTION Family History Mother Alzheimer disease Hyperlipidemia Father Heart disease Surgical History H/O: hysterectomy History of bilateral mastectomy History of tubal ligation Social History household members: spouse housing: house number of children: 2 current occupational status: retired Smoking Status: Never smoker alcohol intake: current details: Rare substance use type: does not use caffeine: Yes (occasional) ROS ROS ED Constitutional Constitutional ED: Denies chills, fever(s) or sweats Eyes Eyes: Denies blurry vision or change in vision ENT ENT ED: Denies ear pain or sore throat Cardiovascular Cardiovascular: Reports chest pain; Denies palpitations or racing heartbeat Respiratory/Chest Respiratory/Chest: Reports cough, dyspnea and dyspnea on exertion; Denies sputum Gastrointestinal Gastrointestinal: Denies abdominal pain, constipation, diarrhea, nausea or vomiting Genitourinary Genitourinary ED: Denies dysuria, hematuria or urinary frequency Musculoskeletal Musculoskeletal: Denies arthralgias, myalgias or neck pain Integumentary Denies abscess, Abrasions or rash Neurologic Neurologic: Denies headache(s), paresthesias or weakness Psychiatric Psychiatric: Reports anxiety; Denies depression, suicidal ideation or suicidal thoughts Endocrine Endocrinology: Denies polydipsia or polyuria EXAM Physical Exam Const Vital Signs: 03/28/23 14:18 03/28/23 14:34 03/28/23 17:00 Temperature 97.9 F Temperature Source Temporal Pulse Rate 74 57 L Respiratory Rate 16 Blood Pressure 116/68 107/98 H Blood Pressure Mean 84 101 Pulse Ox 100 95 Oxygen Delivery Method Room Air Room Air Room Air Positive well nourished HEENT Reports moist mucous membranes normocephalic and atraumatic Eyes PERRL and EOMs intact bilaterally General Eye ED: Negative for pale conjunctiva or scleral icterus Neck no lymphadenopathy Resp normal respiratory effort and clear to auscultation bilaterally Auscultation: Negative for rales, rhonchi or wheezes Cardio regular rate and regular rhythm GI normal to inspection, nondistended, normoactive bowel sounds Extremity normal to inspection Neuro oriented x3 and CN's II-XII intact bilaterally Sensorium / Orientation: awake and alert Motor Exam: strength 5/5 throughout Psych Mood & Affect: anxious Skin no rashes or lesions noted and no wounds MDM MDM MDM Narrative Medical decision making narrative: 78-year-old female with history of Takotsubo cardiomyopathy, diabetes, hyperlipidemia, hypertension presenting with chest pain. Differential includes but is not limited to ACS, PE, aortic dissection, pneumonia, pneumothorax, muscle strain, costochondritis. Patient has equal symmetric breath sounds and chest wall rise. Vital signs are stable and she is afebrile. She does have history of malignancy so we will obtain a D-dimer. CBC to assess white blood cell count, hemoglobin, platelets, differential. BMP to assess for renal function, glucose, anion gap, electrolytes. High-sensitivity troponin and EKG to assess for cardiac ischemia. Chest x-ray will also be obtained. Patient declines any symptoms currently and does not want any analgesia. EKG shows a normal sinus rhythm with a ventricular rate of 64 bpm with premature supraventricular complexes on my interpretation. No ST elevation or depression. Chest x-ray my interpretation shows no acute cardiopulmonary process. Radiologist interprets this and agrees. CBC shows a normal white blood cell count at 8.2. Hemoglobin 10.3 previously 10.9 in January. Renal function and electrolytes near baseline. Patient was given a liter of normal saline however. Glucose 131 without anion gap. High-sensitivity troponin initially 4. Delta troponin 5. No significant interval change. Patient had normal cardiac catheterization within the last year. I do not believe this is cardiac in nature. D-dimer came back at 3.98. CTA of the chest was performed and does not show any PE or dissection. It does show a 1.2 cm lung nodule. This needs follow-up within the next year. At this point feel the patient can safely be discharged. Impression: 1. Chest pain 2. Lung nodule Lab Data Attestation: I reviewed the patient's lab results. Labs: Laboratory Results - last 24 hr 03/28/23 03/28/23 03/28/23 14:45 14:45 14:45 WBC 8.2 RBC 3.41 L Hgb 10.3 L Hct 31.9 L MCV 93.5 MCH 30.2 MCHC 32.3 RDW Std Deviation 44.5 H RDW Coeff of Leigh 13.0 Plt Count 288 MPV 10.1 Immature Gran % (Auto) 0.900 Neut % (Auto) 67.6 Lymph % (Auto) 11.6 L Amelia % (Auto) 10.3 H Eos % (Auto) 8.9 H Baso % (Auto) 0.7 Absolute Neuts (auto) 5.5 Absolute Lymphs (auto) 0.95 Nucleated RBC % 0 D-Dimer Quant (PE/DVT) 3.98 H* Sodium 140 Potassium 4.0 Chloride 112 H Carbon Dioxide 21.0 Anion Gap 7 BUN 28 H Creatinine 1.04 H Estim Creat Clear Calc 33.06 Est GFR (MDRD) Af Amer 66 Est GFR (MDRD) Non-Af 55 L BUN/Creatinine Ratio 26.9 H Glucose 131 H Calcium 9.0 Troponin I High Sens 4 B-Natriuretic Peptide 03/28/23 03/28/23 14:45 16:55 WBC RBC Hgb Hct MCV MCH MCHC RDW Std Deviation RDW Coeff of Leigh Plt Count MPV Immature Gran % (Auto) Neut % (Auto) Lymph % (Auto) Amelia % (Auto) Eos % (Auto) Baso % (Auto) Absolute Neuts (auto) Absolute Lymphs (auto) Nucleated RBC % D-Dimer Quant (PE/DVT) Sodium Potassium Chloride Carbon Dioxide Anion Gap BUN Creatinine Estim Creat Clear Calc Est GFR (MDRD) Af Amer Est GFR (MDRD) Non-Af BUN/Creatinine Ratio Glucose Calcium Troponin I High Sens 5 B-Natriuretic Peptide 57.6 Radiography Diagnostic Testing: Clinical Impression(s) from Imaging Studies Chest X-Ray 03/28/23 14:50 IMPRESSION: Stable examination. No acute abnormality is seen. Electronically Signed: Cleve Loaiza MD at 15:07 EDT , Chest CTA 03/28/23 15:46 IMPRESSION: Normal CTA chest examination, without a demonstrated pulmonary embolism or arterial dissection. 1.2 cm possible right lung nodule as above. Suggest follow-up in one year. Electronically Signed: Phuc Mccracken MD at 16:42 EDT , Discharge Plan Triage Chief Complaint: Chest Pain ED Provider: Tate Patricio Dx/Rx/DC Orders Instructions: ED Chest Pain, Noncardiac, ED Pulmonary Nodule, Solitary Prescriptions: No Action lisinopril 10 mg tablet 10 mg PO BID Qty: 180 3RF Hold Instructions: hypotension metformin 500 MG tablet 500 mg PO 0800 Label Comments: diabetic medication aspirin 81 MG tablet,delayed release (DR/EC) 81 mg PO DAILY Label Comments: [facility]/blood thinner simvastatin 10 MG tablet 10 mg PO QHS Label Comments: TAKE 1 TABLET BY MOUTH EVERY DAY acetaminophen 325 MG tablet 650 mg PO Q6H PRN PRN (Reason: Non-cardiac pain (mod-severe)) 0RF pantoprazole 40 mg tablet,delayed release (DR/EC) 40 mg PO DAILY PRN PRN (Reason: heart burn) carvedilol 6.25 mg tablet 6.25 mg PO BID Qty: 60 11RF Rx Instructions: must administer with a meal/food Primary Care Provider: Mike Pettit Referrals: Mike Pettit MD [Primary Care Provider] - Disposition Disposition: Home, Self Care
[2023-03-28 15:13] LABS: Anion Gap 7 (5-15); BUN 28 mg/dL (7-18); BUN/Creat Ratio 26.9 RATIO (10-20); Chloride 112 mmol/L (98-107); Creatinine, Serum 1.04 mg/dL (0.55-1.02); EST Glomerular Filtration Rate 55 mL/min (>60); Est Glom Filt Rate - Afr Amer 66 mL/min (>60); Estimated Creatinine Clearance 33.06 ml/min; Glucose 131 mg/dL (74-106); Sodium Level 140 mmol/L (136-145); Troponin-I HS (w/2H Reflex) 4 pg/mL (3.0-54.0)
[2023-03-28 15:20] LABS: BNP,B-Type NATRIURETIC PEPTIDE 57.6 pg/mL (0-100)
[2023-03-28 15:45] LABS: D-Dimer Quantitative (DVT/PE) 3.98 FEU/ug/m (0.27-0.49)
--- NOTE | 2023-03-28 15:46 | CT_ITS ---
STUDY: CTA CHEST REASON FOR EXAM: Female, 78 years old. chest pain RADIATION DOSAGE (If Supplied By Facility): CTDIvol = ( 5.41 ) mGy, DLP = ( 190.24 ) mGycm TECHNIQUE: The examination was performed with the intravenous administration of IV 100mL Isovue-370. Post-processing of the angiographic images was performed, with multiplanar reformation and 3D reconstruction. Individualized dose optimization techniques were used for this CT. COMPARISON: None. FINDINGS: Normal enhancement of the main pulmonary artery and right and left pulmonary arteries. Normal enhancement of the bilateral peripheral pulmonary arteries. There is no demonstrated pulmonary embolism. Normal thoracic aorta and visualized great vessels. There is no demonstrated aortic dissection. Normal heart and pericardium. There are calcifications of the coronary arteries. Normal mediastinum. Normal hilar regions. Normal visualized trachea and bronchi. There is elevated right hemidiaphragm. Otherwise the lungs are well expanded. There is a 1.2 cm nodular density of the posterior lateral peripheral right lung which could representing scar oriented along a fissure but nodule is not excluded and follow-up in 12 months recommended. No acute infiltrates. No effusions. There has been left mastectomy, and postsurgical changes of the right breast. There are degenerative changes of thoracic spine. Normal visualized upper abdomen. CT/CTA Chest W/WO Contrast IMPRESSION: Normal CTA chest examination, without a demonstrated pulmonary embolism or arterial dissection. 1.2 cm possible right lung nodule as above. Suggest follow-up in one year. Electronically Signed: Phuc Mccracken MD at 16:42 EDT ,
[2023-03-28] MEDS: 0.9% Normal Saline 1,000 ML 999 ML IV (16:01)
[2023-03-28 16:51] LABS: Reflex Troponin-HS? (from REC) Y
[2023-03-28 17:00] VITALS: BP 107/98; PULSE 57; O2SAT 95
[2023-03-28 17:27] LABS: Troponin-I HS 5 pg/mL (3.0-54.0)
== END 2023-03-28 18:09 | disposition home or self-care (01) ==
PROVIDERS: Emergency Provider Student in an Organized Health Care Education/Training Program; PCP Family Medicine; Visit Provider Student in an Organized Health Care Education/Training Program
DX: R07.9 Chest pain, unspecified (principal); E11.9 Type 2 diabetes mellitus without complications; E78.5 Hyperlipidemia, unspecified; I10 Essential (primary) hypertension; R91.1 Solitary pulmonary nodule; Z85.3 Personal history of malignant neoplasm of breast; Z79.82 Long term (current) use of aspirin; Z79.899 Other long term (current) drug therapy; Z79.84 Long term (current) use of oral hypoglycemic drugs
CPT/HCPCS: 71045; 71275; 80048; 83880; 84484; 85025; 85379; 93005; 96360; 99285; J7030; Q9967

== ENCOUNTER → 2023-08-07 | Outpatient (CLI) | payer MEDICARE, OTHER, SELFPAY ==
[2023-08-07 15:19] LABS: Hematocrit 35.8 % (37-47); Hemoglobin 11.4 g/dL (12.0-15.0); Mean Corp Hgb Conc 31.8 g/dL (32-36); Mean Corpuscular Hgb 30.6 pg (27.0-32.0); Mean Platelet Vol. 10.4 fl (6.2-12.0); Platelet Count 250 K/mm3 (150-450); RBC Distribution Width CV 13.3 % (11.6-14.6); RBC Distribution Width SD 46.5 fl (35.1-43.9); Red Blood Count 3.73 M/mm3 (4.2-5.4); White Blood Count 5.2 K/mm3 (4.4-11.0)
[2023-08-07 16:02] LABS: Vitamin B12 203 pg/mL (211-911)
[2023-08-07 16:42] LABS: AST(SGOT) 21 U/L (15-37); Alanine Aminotransfer ALT/SGPT 32 U/L (13-56); Albumin, Serum 3.6 g/dL (3.2-5.0); Alkaline Phosphatase 49 U/L (45-117); Anion Gap 5 (5-15); BUN 22 mg/dL (7-18); BUN/Creat Ratio 18.2 RATIO (10-20); Calcium,Total 8.8 mg/dL (8.5-10.1); Chloride 110 mmol/L (98-107); Creatinine, Serum 1.21 mg/dL (0.55-1.02); EST Glomerular Filtration Rate 46 mL/min (>60); Est Glom Filt Rate - Afr Amer 56 mL/min (>60); Globulin 3.6 g/dL (2.2-4.2); Glucose 116 mg/dL (74-106); Potassium 3.9 mmol/L (3.5-5.1); Protein, Total 7.2 g/dL (6.4-8.2); Sodium Level 143 mmol/L (136-145); Thyroid Stim Hormone (TSH) 1.98 uIU/mL (0.358-3.74)
[2023-08-12 14:07] LABS: Free Kappa Light Chains 46.5 mg/L (3.3-19.4)
== END | disposition home or self-care (01) ==
LOC: MTLAB 11:21
PROVIDERS: PCP Family Medicine; Referring Provider Psychiatry & Neurology Neurology; Visit Provider Psychiatry & Neurology Neurology
DX: G62.9 Polyneuropathy, unspecified (principal); E11.69 Type 2 diabetes mellitus with other specified complication
CPT/HCPCS: 36415; 80053; 82607; 82746; 83883; 84425; 84443; 85027

== ENCOUNTER → 2023-11-14 | Outpatient (CLI) | payer MEDICARE, OTHER, SELFPAY ==
--- OUTSIDE RECORDS SUMMARY | 2023-11-14 08:05 | XMS RPT_ITS | CCD ---
Author Name Unknown Address [facility] [address] [place] [address] Organization [facility] Care Team Providers Care Corporate Communications Intern Name Role Phone VERONICATOBY Unavailable Unavailable VERONICATOBY Unavailable Unavailable Problems Problem Classification Problem Date Documented Da te Episodic/Chronic Unclassified (1 source) Unknown / UNK(Unknown) Onset: 09-21-2017 Results Test Name Value Interpretation Reference Range Facil ity Encounters Encounter Date Encounter Type Care Provider Facility Start: 09-21-2017 End: 09-21-2017 Ambulatory DAESUNG VERONICA [facility] Summary Purpose Family History No Family History Records Found Advance Directives No Advanced Directives Records Found Additional Source Comments INFORMATION SOURCE (unrecogn ized section and content) FOR RECORDS PERTAINING TO PATIENTS WHO ARE OR HAVE BEEN ENROLLED IN A CHEMICAL DEPENDENCY/SUBSTANCEABUSE PROGRAM, SOME INFORMATION MAY BE OMITTED. This clinical summary was aggregated from multiple sources. Caution should be exercised in using it in the provision of clinical care. This summary normalizes information from multiple sources, and as a consequence, information in this document may materially change the coding, format and clinical context of patient data. In addition, data may be omitted in some cases. CLINICAL DECISIONS SHOULD BE BASED ON THE PRIMARY CLINICAL RECORDS. [facility]. provides no warranty or guarantee of the accuracy or completeness of information in this document.
--- NOTE | 2023-11-14 12:33 | NEURO ---
NCS and/or EMG Patient Report Ordering Doctor: Morgan Bernal DATE OF SERVICE: 11/14/23 Shelley presents for electrodiagnostic testing of the lower limbs. She reports gait disturbance. She denies numbness or tingling. She denies leg pain. Electrodiagnostic findings: Peroneal motor nerve demonstrates normal distal latency, amplitude and conduction velocity bilaterally. Tibial motor response within normal limits bilaterally. Normal peroneal and tibial F?waves. Borderline prolonged H?reflex bilaterally. Sensory responses demonstrates borderline prolonged latency of the left sural nerve. Needle EMG testing demonstrates no evidence of denervation with normal motor unit action potentials. Electrodiagnostic assessment: This a normal electrodiagnostic study of the lower limbs. There is no electrodiagnostic evidence for peripheral polyneuropathy or lumbosacral radiculopathy. Multi Select Codes Neurology Neurology Interp Codes: 92089-78 Musc test done w/n test comp (interp) (2) and 35784-96 Nrv cndj test 9-10 studies (interp)
== END | disposition home or self-care (01) ==
PROVIDERS: PCP Family Medicine; Referring Provider Psychiatry & Neurology Neurology; Visit Provider Psychiatry & Neurology Neurology
DX: R20.0 Anesthesia of skin (principal); G62.9 Polyneuropathy, unspecified; R26.9 Unspecified abnormalities of gait and mobility
CPT/HCPCS: 95886; 95911

== ENCOUNTER → 2023-12-13 | Outpatient (CLI) | payer MEDICARE, OTHER, SELFPAY ==
--- OUTSIDE RECORDS SUMMARY | 2023-12-13 14:57 | XMS RPT_ITS | CCD ---
Author Name Unknown Address [facility] [address] [place] [address] Organization [facility] Care Team Providers Care Event Staff Name Role Phone VERONICATOBY Unavailable Unavailable VERONICATOBY Unavailable Unavailable Problems Problem Classification Problem Date Documented Da te Episodic/Chronic Unclassified (1 source) Unknown / UNK(Unknown) Onset: 09-21-2017 Results Test Name Value Interpretation Reference Range Facil ity Encounters Encounter Date Encounter Type Care Provider Facility Start: 09-21-2017 End: 09-21-2017 Ambulatory DAESUNG VERONICA [facility] Summary Purpose Family History No Family History [...] BE BASED ON THE PRIMARY CLINICAL RECORDS. [employer] [facility]. provides no warranty or guarantee of the accuracy or completeness of information in this document.
[2023-12-13 16:38] LABS: Vitamin B12 338 pg/mL (211-911)
[2023-12-18 15:08] LABS: Albumin 3.9 g/dL (2.9-4.4); Alpha-1-Globulins 0.2 g/dL (0.0-0.4); Alpha-2-Globulins 0.9 g/dL (0.4-1.0); Gamma Globulin 1.2 g/dL (0.4-1.8); Immunoglobulin A 151 mg/dL (64-422); Immunoglobulin G 982 mg/dL (586-1602); Immunoglobulin M 150 mg/dL (26-217); Intrinsic Factor Ab 1.1 AU/mL (0.0-1.1); PROEL- TOTAL PROTEIN 7.1 g/dL (6.0-8.5)
== END | disposition home or self-care (01) ==
LOC: MTLAB 12:54
PROVIDERS: PCP Family Medicine; Referring Provider Psychiatry & Neurology Neurology; Visit Provider Psychiatry & Neurology Neurology
DX: E53.8 Deficiency of other specified B group vitamins (principal); G62.9 Polyneuropathy, unspecified
CPT/HCPCS: 36415; 82607; 82784; 84165; 86334; 86335; 86340

== ENCOUNTER → 2024-01-28 | Outpatient (CLI) | payer MEDICARE, OTHER, SELFPAY ==
[2024-01-28 12:47] LABS: Anion Gap 3 (5-15); BUN 21 mg/dL (7-18); BUN/Creat Ratio 16.8 RATIO (10-20); Calcium,Total 9.7 mg/dL (8.5-10.1); Chloride 107 mmol/L (98-107); Cholesterol 146 mg/dL (200); Creatinine, Serum 1.25 mg/dL (0.55-1.02); EST Glomerular Filtration Rate 44 mL/min (>60); Est Glom Filt Rate - Afr Amer 53 mL/min (>60); Glucose 131 mg/dL (74-106); High Density Lipoprotein 41 mg/dL; Potassium 4.1 mmol/L (3.5-5.1); Sodium Level 140 mmol/L (136-145); Triglycerides 314 mg/dL; Very Low Density Lipoprotein 63 mg/dL (5-40)
[2024-01-28 13:45] LABS: Hemoglobin A1c 6.5 % (3.8-5.6)
== END | disposition home or self-care (01) ==
LOC: MFPLAB 10:05
PROVIDERS: PCP Family Medicine; Visit Provider Family Medicine
DX: E11.9 Type 2 diabetes mellitus without complications (principal)
CPT/HCPCS: 36415; 80048; 80061; 83036

== ENCOUNTER → 2024-03-19 | Outpatient (CLI) | payer MEDICARE, OTHER, SELFPAY ==
[2024-03-19 12:28] LABS: Hematocrit 36.2 % (37-47); Hemoglobin 11.7 g/dL (12.0-15.0)
[2024-03-19 12:37] LABS: Ferritin 62 ng/mL (8-252); Iron 79 ug/dL (50-170); Iron Binding Capacity,Total 380 ug/dL (250-450)
== END | disposition home or self-care (01) ==
LOC: MTLAB 10:46
PROVIDERS: PCP Family Medicine; Referring Provider Internal Medicine Gastroenterology; Visit Provider Internal Medicine Gastroenterology
DX: D50.9 Iron deficiency anemia, unspecified (principal)
CPT/HCPCS: 36415; 82728; 83540; 83550; 85014; 85018

== ENCOUNTER 2024-06-18 09:05 | Day surgery (SDC) | payer MEDICARE, OTHER, SELFPAY ==
[2024-06-18] VITALS (9 sets, daily range): BP systolic 130–155; BP diastolic 59–105; PULSE 53–59; RESP 16; TEMP 36.3–36.4; O2SAT 96–99; BMI 25.4
[2024-06-18] MEDS: Lactated Ringers 1,000 ML 15 ML IV (09:43)
--- NOTE | 2024-06-18 09:46 | PCM.PRE.AN2 ---
ASA Classification* ASA Classification ASA Classification: 3 Assessment & Plan Anesthesia* Anesthesia Assessment Anesthesia Assessment: Discussed sedation and/or anesthesia options, risks, benefits, and alternatives with patient/parents/legal guardian/POA. Questions invited. The patient/parents/legal guardian/POA seems to understand and agrees to proceed with anesthesia plan. Reviewed the physical assessment, medical history, allergy history and patient home medications list prior to surgery/procedure/anesthetic and documented any changes. Performed airway and anesthesia risk assessments. Anesthesia Type Anesthesia Type: MAC Anesthesia Focused Assessment* Temperature: 97.3 F Pulse Rate: 57 Blood Pressure: 153/70 Respiratory Rate: 16 Pulse Ox: 99 Airway Assessment Mouth opens: >3 cm Mallampati Score: II Focused Labs Anesthesia Preop lab: CBC WBC 5.9 K/mm3 (4.4-11.0) 01/14/24 10:55 RBC 3.57 M/mm3 (4.2-5.4) L 01/14/24 10:55 Hgb 11.7 g/dL (12.0-15.0) L 03/19/24 10:53 Hct 36.2 % (37-47) L 03/19/24 10:53 Plt Count 238 K/mm3 (150-450) 01/14/24 10:55 CHEMISTRY Potassium 4.1 mmol/L (3.5-5.1) 01/28/24 10:06 Sodium 140 mmol/L (136-145) 01/28/24 10:06 Magnesium 1.4 mg/dL (1.6-2.6) L 07/09/19 21:05 BUN 21 mg/dL (7-18) H 01/28/24 10:06 Creatinine 1.25 mg/dL (0.55-1.02) H 01/28/24 10:06 Glucose 131 mg/dL (74-106) H 01/28/24 10:06 POC Glucose 86 mg/dL (74-106) 05/19/22 22:11 TSH 1.98 uIU/mL (0.358-3.74) 08/07/23 11:23 COAG PT 12.4 SECONDS (11.7-14.9) 05/19/22 03:05 Pre-Assessment Diagnosis/Proposed Procedure Planned Operative Procedure(s): Removal, Port Anesthesia History Anesthesia History - instructor warper: Anesthesia History - instructor warper Hx Hospitalization No 06/11/24 08:22 Any Problems With Anesthesia No 06/11/24 08:22 Cholinesterase deficiency No 06/11/24 08:22 You/Your Family Experience No 06/11/24 08:22 fever (hyperthermia) with Relationship Recent Exposure to Contagious No 06/18/24 09:39 Disease Does patient have nerve No 06/11/24 08:22 stimulator Patient instructed to have device shut off --Does patient have Pacemaker No 06/18/24 09:39 or ICD? When Was Last Pacemaker Check QUESTION #4 FULL TEXT: You/Your Family Experience fever (hyperthermia) with Anesthesia Last Oral Intake Last Oral intake: Last Oral Intake NPO since 20:00 06/18/24 09:39 Meds taken in AM with sips of Yes 06/18/24 09:39 water? Meds patient instructed to CARVEDILOL, LISINOPRIL 06/18/24 09:39 take am of surgery PONV PONV - instructor warper: PONV - instructor warper Female Yes 06/11/24 08:22 HX of Motion Sickness No 06/11/24 08:22 HX of N/V After Surgery No 06/11/24 08:22 Non-Smoker Yes 06/11/24 08:22 Duration of Surgery greater No 06/11/24 08:22 than 60 minutes Number of Risk Factors 2 06/11/24 08:22 PONV Score Moderate Risk 06/11/24 08:22 Height & Weight Height & Weight: Anesthesia: Height & Weight Height 5 ft 06/18/24 09:39 Weight: 59 kg 06/18/24 09:39 Body Mass Index (BMI) 25.4 06/18/24 09:39 Respiratory Assessment Respiratory Assessment - instructor warper: Respiratory Tract Infection Hx - instructor warper Hx Respiratory Tract Infection No 06/11/24 08:22 STOP Sleep Apnea STOP Sleep Apnea - instructor warper: STOP Sleep Apnea - instructor warper Hx Hypertension Yes: CONTROLLED WITH MED 06/11/24 08:22 Hx Sleep Apnea No 06/11/24 08:22 CPAP BIPAP Do you snore loudly (louder No 06/11/24 08:22 than talking or can be heard Do you often feel tired/ No 06/11/24 08:22 fatigued/ sleepy during daytime? Has anyone observed you stop No 06/11/24 08:22 breathing during sleep? STOP Results Negative 06/11/24 08:22 QUESTION #5 FULL TEXT : Do you snore loudly (louder than talking or can be heard through closed doors)? Tobacco Use History Tobacco Use History - instructor warper: Tobacco Use History - instructor warper Tobacco Use Non-smoker 05/22/24 08:33 Smoking Status Never smoker 06/11/24 08:22 Hx Tobacco Use No 06/11/24 08:22 Years Smoking Packs Smoked per Day Smoking Cessation Date was within the last 15 years Hx Smoking Cessation Date Hx Smoking Cessation Counseling Hematologic Medial History Hematologic Hx - instructor warper: Hematologic Medical Hx - documentation billing clerk Hx of Blood Transfusion No 06/11/24 08:22 Hx of Transfusion in last 3 No 06/11/24 08:22 Months Date of Last Transfusion (if within last 3 months) Ever experience any problems No 06/11/24 08:22 with transfusion(s)? Specify any problems Hx of Preganancy in last 3 N/A 06/11/24 08:22 Months Nurse Filling Out Transfusion NBUCHER 06/11/24 08:22 & Questions: Date: 06/11/24 06/11/24 08:22 Time: 08:24 06/11/24 08:22 Patient unable to answer at this time (ie. confused, unrespo /Reproduction History /Reproductive History - instructor warper: /Reproductive Hx- instructor warper Hx Now No 06/11/24 08:22 Gestational Age (in weeks): EDC: Hx Hx Para Hx Section SAB No 06/11/24 08:22 Active Medications Active Medications: Current Medications Generic Name Dose Route Start Last Admin Trade Name Freq PRN Reason Stop Dose Admin Lactated Ringer's 1,000 mls @ 15 mls/hr 06/18/24 09:30 06/18/24 09:43 IV 15 mls/hr .Q48H ELMER Administration Cefazolin Sodium 2 gm/ Sodium 110 mls @ 150 mls/hr 06/19/24 10:00 Chloride IV 06/19/24 10:43 PREOP ONE PFSH Medical History (Updated 06/11/24 @ 08:34 by Sanaz Guerrier) Wears hearing aid Loss of hearing Wears partial dentures Cancer Wears glasses High cholesterol Dietary restriction Non-smoker History of heart attack History of echocardiogram Cardiology follow-up encounter Fatigue B12 nutritional deficiency Arachnoid cyst of posterior cranial fossa Abnormality of gait and mobility Numbness Polyneuropathy Coronary artery disease Anemia Takotsubo cardiomyopathy NSTEMI, initial episode of care Ulcer Upper GI bleed Hypokalemia Acute blood loss anemia Ankle fracture, right Nasal fracture Hypokalemia Hypertension Diabetes Endometrial cancer Breast cancer History of right breast cancer Malignant neoplasm of right female breast Malignant neoplasm of endometrium Malignant neoplasm of left female breast Hypertension Hyperlipidemia Diabetes mellitus Home Medications ?Medication ?Instructions ?Recorded ?Last Taken ?Type aspirin 81 mg tablet,delayed 81 mg PO DAILY heart health 08/07/14 06/10/24 History release metformin 500 mg tablet 500 mg PO 08 diabetes 08/07/14 06/17/24 History simvastatin 10 mg tablet 10 mg PO QHS cholesterol 07/09/19 06/17/24 History lisinopril 10 mg tablet 10 mg PO DAILY 05/22/23 06/18/24 History carvedilol 6.25 mg tablet See Rx Instructions .Route 09/17/23 06/18/24 Rx .COMPLEX #180 tabs Allergy/AdvReac Type Severity Reaction Status Date / Time Sulfa (Sulfonamide Allergy Unknown PT UNSURE Verified 06/18/24 09:30 Antibiotics) OF REACTION Family History Mother Alzheimer disease Hyperlipidemia Father Heart disease Surgical History (Updated 06/11/24 @ 08:34 by Sanaz Guerrier) History of cardiac catheterization History of colonoscopy History of esophagogastroduodenoscopy (EGD) History of bilateral mastectomy History of tubal ligation H/O: hysterectomy Social History household members: spouse housing: house number of children: 2 current occupational status: retired Smoking Status: Never smoker alcohol intake: current details: Rare substance use type: does not use caffeine: Yes (occasional) Review of Systems (Anesthesia) ROS Narrative System reviewed and no additional complaints, except as documented.
[2024-06-18 10:06] LABS: Bedside Glucose 150 mg/dL (74-106)
--- NOTE | 2024-06-18 10:45 | PCM.HP.BLA ---
History and Physical Date of Admission: 06/18/24 Date of Service: 06/06/24 MR#: [id number] Acct: [id number] Name: MAE ANGUIANO Rep #: [id number] : 1945 Provider: Dr. Danielle Khoury MD Age/Sex: 79/F Location: [facility] Status: Signed Intake Vital Signs 05/08/2411:10 05/22/2408:33 05/28/2410:22 Height 5 ft 5 ft 5 ft Weight: 130 lb 13 oz 131 lb BMI 25.5 25.5 BP 140/67 H 150/73 H Blood Pressure Location Lt radial Rt brachial Position Sitting Sitting Respiration 17 16 Pulse 100 63 Pulse Source Monitor Monitor Temp 98.0 F Temp Source Temporal Pulse Oximetry (%) 94 Oxygen Delivery Method room air Intake Visit Reasons: PORT REMOVAL Chief Complaint: port removal Is patient in pain?: No Allergies Sulfa (Sulfonamide Antibiotics) Allergy (Unknown, Verified 06/06/24 13:32) PT UNSURE OF REACTION Medications ?Medication ?Instructions ?Recorded ?Confirmed ?Type aspirin 81 mg tablet,delayed 81 mg PO DAILY heart health 08/07/14 06/06/24 History release metformin 500 mg tablet 500 mg PO 0800 diabetes 08/07/14 06/06/24 History simvastatin 10 mg tablet 10 mg PO QHS cholesterol 07/09/19 06/06/24 History lisinopril 10 mg tablet 10 mg PO DAILY 05/22/23 06/06/24 History carvedilol 6.25 mg tablet See Rx Instructions .Route 09/17/23 06/06/24 Rx .COMPLEX #180 tabs Have you fallen in the past year?: No PFSH Medical History Fatigue B12 nutritional deficiency Arachnoid cyst of posterior cranial fossa Abnormality of gait and mobility Numbness Polyneuropathy Coronary artery disease Anemia Takotsubo cardiomyopathy NSTEMI, initial episode of care Ulcer Upper GI bleed Hypokalemia Acute blood loss anemia Ankle fracture, right Nasal fracture Hypokalemia Hypertension Diabetes Endometrial cancer Breast cancer History of right breast cancer Malignant neoplasm of right female breast Malignant neoplasm of endometrium Malignant neoplasm of left female breast Hypertension Hyperlipidemia Diabetes mellitus Surgical History History of bilateral mastectomy History of tubal ligation H/O: hysterectomy Family History Mother Alzheimer disease HyperlipidemiaFather Heart disease Social History household members: spouse housing: house number of children: 2 current occupational status: retired Smoking Status: Never smoker alcohol intake: current details: Rare substance use type: does not use caffeine: Yes (occasional) HPI HPI HPI: 79-year-old female presents for port removal. Patient's port was placed in [address] Muhammad after her breast cancer. Patient has been getting it accessed and flushed question if there is started to become a whole in the skin at the center recommend removal. ROS General General: Yes breast cancer; No weakness Skin Skin: No rash Cardio Cardiovascular: No chest pain Gastro Gastrointestinal: No abdominal pain Neuro Neurologic: No weakness Exam Const General: cooperative, healthy appearing, comfortable and no acute distress HENOR Head: normocephalic and atraumatic Neck Neck: supple Chest Other: Right IJ port in place, incision well-healed, right neck incision well-healed, very central part of the port questionable could be a scab as maybe this area has been accessed every time and the skin has broken down no obvious open hole currently Resp Effort & Inspection: normal respiratory effort Cardio Rate: regular rate GI Inspection: non-distended Skin General: no rashes or lesions noted Neuro General: CN's II-XI intact bilaterally Extrem General: normal to inspection Psych Mental Status: mental status grossly normal Attitude: cooperative Assessment and Plan Assessment and Plan (1) Encounter for adjustment or management of vascular access device: Status: Acute Plan Discussed with patient due to this port being placed in 2016 would not recommend office removal and would plan to have it removed in the OR. Discussed that there is a possibility that this catheter would not be able to be removed as it may be attached to the vessel. Discussed procedure in the OR would include fluoroscopy and would be able to remove the port however if there is tethering on the catheter and does not easily pull would be planning to suture the catheter in place with permanent suture, but remove the actual port. Patient is agreeable with plan. Will plan for removal of right IJ chest Port-A-Cath in OR?risk include leaving the catheter in place, possible migration of catheter. Patient no further question this time. Danielle Khoury M.D. Pager: [phone] [facility] [address] [place] [address], [address] [place] [id number] Office: [phone] Coding Level of Care Code Off vis,new,level 3 Diagnoses Encounter for adjustment or management of vascular access device Z45.2 Clinical Quality Measures Falls Risk Screening/Assistive Devices Have you fallen in the past year?: No 06/08/24 0832 <Electronically signed by Danielle Khoury MD> Date Danielle Khoury MD
[2024-06-18] MEDS: Cefazolin 2 GM in 0.9% Normal Saline (100mL Bag) 100 ML IV (11:00)
[2024-06-18] MEDS: Lidocaine 1% /Epi 1:100 (20ml) 20 ML Vial (11:03)
[2024-06-18] MEDS: Bupivacaine 0.5% PF 10 ML VIAL (11:03)
--- NOTE | 2024-06-18 11:23 | OP.PCM_ITS ---
Report of Operation Date of Procedure: 06/18/24 Pre-Operative Diagnosis: z45.2 Post-Operative Diagnosis: same Surgery/Procedure Performed:: Removal of right IJ Port-A-Cath Use of fluoroscopy Surgeon: Danielle Khoury Type of Anesthesia: Local MAC Anesthesiologist: Steven Perry Special Medications: Ancef 2 g Specimen's removed: Right IJ Port-A-Cath 8 B[place] Estimated Blood Loss (mL): < 5 cc Description of Procedure: Patient was placed supine on the OR table timeout was completed verifying correct patient, procedure, site, positioning, special, prior to beginning procedure. MAC anesthesia was induced. The right chest was prepped and draped in usual sterile fashion. Local anesthesia of 1% lidocaine with epi was used. The previous right port site was re-incised with a 15 blade scalpel in Metzenbaum scissors were used to sharply incise the capsule surrounding the port. Gentle traction on the catheter was done under fluoroscopy which did show the catheter coming out well. The catheter was removed while pressure was being held on the right IJ site externally. Next the port was removed from the pocket. The incision was closed with 3-0 Vicryl subdermal sutures with Steri's and OpSite. Patient tolerated procedure well and went to PACU in stable condition. Complications none
--- NOTE | 2024-06-18 11:26 | DCINST_ITS ---
Discharge Instructions Procedure Port-A-Cath Diet Discharge Diet: Light diet - advance as tolerated Activity May shower in (days): 1 Dressing / Incision Call your doctor if your incision/area has: Continuous Slow Oozing, Sudden Increased Bleeding, Increased Pain/ Swelling, Increased Redness, Foul Smelling Discharge and Swelling at the incision site Call your doctor if you observe: Fever of 101 or Higher Remove Dressing in: 2 days Follow Up Care Please Follow Up With: Danielle Khoury MD When: Follow-up in office in 1 to 2 weeks if any concerns okay to call office and let us know there is no concerns as well. Discharge Plan Admission Attending Provider: Danielle Khoury Primary Care Provider: Mike Pettit Instructions Print Language: Estonian Discharge Orders/Prescriptions Prescriptions: No Action lisinopril 10 mg tablet 10 mg PO DAILY metformin 500 MG tablet 500 mg PO 0800 Patient Comments: diabetic medication aspirin 81 MG tablet,delayed release (DR/EC) 81 mg PO DAILY Patient Comments: heart health/blood thinner simvastatin 10 MG tablet 10 mg PO QHS Patient Comments: TAKE 1 TABLET BY MOUTH EVERY DAY carvedilol 6.25 mg tablet See Rx Instructions .ROUTE .COMPLEX Qty: 180 3RF Dose Instruction: take 1 tablet by mouth twice a day with food Rx Instructions: take 1 tablet by mouth twice a day with food Referrals / Follow Up: Mike Pettit MD [Primary Care Provider] - Disposition Disposition (needs filled in before D/C Order can be placed): Home, Self Care
--- NOTE | 2024-06-18 11:28 | PCM.POST.ANE ---
Anesthesia: Postop Eval I Current Vital Signs Temperature: 97.5 F Pulse Rate: 58 Blood Pressure: 130/105 Respiratory Rate: 16 Pulse Ox: 97 Oxygen Delivery Method: Room Air Assessment Airway patent: Yes Spontaneous unlabored respirations: Yes Mental status: Awake and Calm nausea: No Vomiting: No Anesthesia Complication: No Fluid Hydration Crystalloid volume administer (ml): 600 Total IV fluid infused: 600 Progress Note Anesthesia document: Postop Eval 1 completed: Yes
--- NOTE | 2024-06-18 11:34 | PCM.POST.ANE ---
Anesthesia: Postop Eval I Current Vital Signs Temperature: 97.5 F Pulse Rate: 58 Blood Pressure: 152/59 (retaken, previous BP arm shaking) Respiratory Rate: 16 Pulse Ox: 97 Oxygen Delivery Method: Room Air Assessment Airway patent: Yes Spontaneous unlabored respirations: Yes Mental status: Awake and Calm nausea: No Vomiting: No Anesthesia Complication: No Fluid Hydration Crystalloid volume administer (ml): 600 Total IV fluid infused: 600 Progress Note Anesthesia document: Postop Eval 1 completed: Yes
--- NOTE | 2024-06-18 12:19 | POSTOPAN2_ITS ---
Anesthesia Postop Eval I Sum Postop Eval Completion status Anesthesia document: Postop Eval 1 completed: Yes Anesthesia Postop Eval I Summary Anesthesia Postop Eval I Summary: Anesthesia Postop Eval I: Assessment Summary Airway patent Yes 06/18/24 11:35 HEDIS [email or web address].[email or web address] Spontaneous unlabored Yes 06/18/24 11:35 HEDIS [email or web address] respirations Mental status Awake,Calm 06/18/24 11:35 HEDIS ABSTRACTOR.[email or web address] nausea No 06/18/24 11:35 HEDIS ABSTRACTOR.[email or web address] Vomiting No 06/18/24 11:35 HEDIS ABSTRACTOR.JAVIER Anesthesia Postop Eval I: Fluid Summary Crystalloid volume administer 600 06/18/24 11:35 HEDIS ABSTRACTOR.COLINOBY (ml) Colloids volume administered ( ml) Blood Product volume administered (ml) Total IV fluid infused 600 06/18/24 11:35 HEDIS ABSTRACTOR.JAVIER Anesthesia Postop Eval I: Summary Notes Anesthesia Complication No 06/18/24 11:35 HEDIS ABSTRACTOR.JAVIER Anesthesia Complication Comment: Post-operative progress note Anesthesia: Postop Eval II Evaluation Mental status: Awake and Calm Pain Level: 1 nausea: No Vomiting: No Complications Anesthesia Complication: No
--- NOTE | 2024-06-18 12:19 | PCM.POSTANE2 ---
Anesthesia Postop Eval I Sum Postop Eval Completion status Anesthesia document: Postop Eval 1 completed: Yes Anesthesia Postop Eval I Summary Anesthesia Postop Eval I Summary: Anesthesia Postop Eval I: Assessment Summary Airway patent Yes 06/18/24 11:35 TREE MARKER.[email or web address] Spontaneous unlabored Yes 06/18/24 11:35 TREE MARKER.JAVIER respirations Mental status Awake,Calm 06/18/24 11:35 TREE MARKER.[email or web address] nausea No 06/18/24 11:35 TREE MARKER.COLINOBFroylan Vomiting No 06/18/24 11:35 TREE MARKER.JAVIER Anesthesia Postop Eval I: Fluid Summary Crystalloid volume administer 600 06/18/24 11:35 TREE MARKER.COLINOBY (ml) Colloids volume administered ( ml) Blood Product volume administered (ml) Total IV fluid infused 600 06/18/24 11:35 TREE MARKER.JAVIER Anesthesia Postop Eval I: Summary Notes Anesthesia Complication No 06/18/24 11:35 TREE MARKER.JAVIER Anesthesia Complication Comment: Post-operative progress note Anesthesia: Postop Eval II Evaluation Mental status: Awake and Calm Pain Level: 1 nausea: No Vomiting: No Complications Anesthesia Complication: No
== END 2024-06-18 12:32 | disposition home or self-care (01) ==
LOC: SDC 09:05 → AC 09:06
PROVIDERS: PCP Family Medicine; Referring Provider Surgery; Visit Provider Surgery
PROC: (CPT 36590; principal; 2024-06-18 10:45)
DX: Z45.2 Encounter for adjustment and management of vascular access device (principal); C50.919 Malignant neoplasm of unspecified site of unspecified female breast; E11.42 Type 2 diabetes mellitus with diabetic polyneuropathy; E78.00 Pure hypercholesterolemia, unspecified; I10 Essential (primary) hypertension; I25.10 Atherosclerotic heart disease of native coronary artery without angina pectoris; I25.2 Old myocardial infarction; Z79.84 Long term (current) use of oral hypoglycemic drugs; Z79.82 Long term (current) use of aspirin; Z79.899 Other long term (current) drug therapy
CPT/HCPCS: 36590; 01991; 77001; 82962; J7120; J2405

== ENCOUNTER → 2024-08-04 | Outpatient (CLI) | payer MEDICARE, OTHER, SELFPAY ==
[2024-08-04 18:32] LABS: AST(SGOT) 29 U/L (15-37); Alanine Aminotransfer ALT/SGPT 30 U/L (13-56); Albumin, Serum 3.7 g/dL (3.2-5.0); Alkaline Phosphatase 53 U/L (45-117); Anion Gap 6 (5-15); BUN 24 mg/dL (7-18); BUN/Creat Ratio 21.4 RATIO (10-20); Calcium,Total 9.9 mg/dL (8.5-10.1); Chloride 108 mmol/L (98-107); Cholesterol 125 mg/dL (200); Creatinine, Serum 1.12 mg/dL (0.55-1.02); EST Glomerular Filtration Rate 50 mL/min (>60); Est Glom Filt Rate - Afr Amer 61 mL/min (>60); Globulin 3.6 g/dL (2.2-4.2); Glucose 119 mg/dL (74-106); High Density Lipoprotein 43 mg/dL; Potassium 3.9 mmol/L (3.5-5.1); Protein, Total 7.3 g/dL (6.4-8.2); Sodium Level 140 mmol/L (136-145); Triglycerides 195 mg/dL; Very Low Density Lipoprotein 39 mg/dL (5-40)
== END | disposition home or self-care (01) ==
LOC: MFPLAB 13:59
PROVIDERS: PCP Family Medicine; Visit Provider Family Medicine
DX: E11.9 Type 2 diabetes mellitus without complications (principal)
CPT/HCPCS: 36415; 80053; 80061

== ENCOUNTER → 2024-11-03 | Outpatient (CLI) | payer MEDICARE, OTHER, SELFPAY ==
[2024-11-03 15:48] LABS: Hemoglobin A1c 6.4 % (3.8-5.6)
== END | disposition home or self-care (01) ==
LOC: MFPLAB 11:34
PROVIDERS: PCP Family Medicine; Referring Provider Family Medicine; Visit Provider Family Medicine
DX: E11.9 Type 2 diabetes mellitus without complications (principal)
CPT/HCPCS: 36415; 83036

== ENCOUNTER → 2025-02-05 | Outpatient (CLI) | payer MEDICARE, OTHER, SELFPAY | END | disposition home or self-care (01) | LOC: MFPLAB 12:11 → LABSPEC 12:12 | PROVIDERS: PCP Family Medicine; Referring Provider Family Medicine; Visit Provider Family Medicine | DX: N39.0 Urinary tract infection, site not specified (principal) | CPT/HCPCS: 87077; 87086; 87088; 87186 ==

== ENCOUNTER → 2025-03-12 | Outpatient (CLI) | payer MEDICARE, OTHER, SELFPAY | END | disposition home or self-care (01) | LOC: MFPLAB 14:43 | PROVIDERS: PCP Family Medicine; Referring Provider Family Medicine; Visit Provider Family Medicine | DX: R39.89 Other symptoms and signs involving the genitourinary system (principal) | CPT/HCPCS: 87077; 87086; 87088; 87186 ==